=== PATIENT | male | born 1945 | race Caucasian/White ===

== ENCOUNTER 2018-04-13 17:10 | Inpatient (IN) | payer MEDICARE, OTHER ==
[~2018-04-13] VITALS: Ht 152.4 cm; Wt 87.4 kg
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
--- NOTE | 2018-04-13 18:07 | EKG ---
[address] [address] Test Date: 2018-04-13 Test Time: 17:59:26 Pat Name: KIM ROCHE Department: Room: Gender: M Termite Helper: AUDRA : 1945 Requested By: RALF RO Order Number: [id number] Reading MD: Albert Santiago Measurements Intervals [place] Rate: 79 P: VA: QRS: -55 QRSD: 142 T: 109 QT: 436 QTc: 507 Interpretive Statements VENTRICULAR PACED RHYTHM Electronically Signed On 04-17-2018 8:57:48 BOAT REPAIRER by Albert Santiago
[2018-04-13 18:10] LABS: BASO % 1 % (0-3); EOS # 0.2 x10^3/uL (0.0-0.7); EOS % 3 % (0-3); HEMATOCRIT 43.1 % (39.0-53.0); HEMOGLOBIN 14.2 g/dL (13.0-17.5); LYMPH # 1.6 x10^3/uL (1.0-4.8); LYMPH % 24 % (24-48); MEAN CORPUSCULAR HEMOGLOBIN 33 pg (25-35); MEAN CORPUSCULAR HGB CONC 33 g/dL (31-37); MEAN CORPUSCULAR VOLUME 100 fL (79-100); MONO # 0.6 x10^3/uL (0.0-1.1); MONO % 9 % (0-9); NEUT # 4.2 x10^3uL (1.8-7.7); NEUT % 63 % (31-73); PLATELET COUNT 142 x10^3/uL (140-400); RED BLOOD COUNT 4.31 x10^6/uL (4.30-5.70); RED CELL DISTRIBUTION WIDTH 13.3 % (11.5-14.5); WHITE BLOOD COUNT 6.7 x10^3/uL (4.0-11.0)
[2018-04-13 18:21] LABS: ALBUMIN 3.5 g/dL (3.4-5.0); CALCIUM 8.7 mg/dL (8.5-10.1); CREATININE 0.9 mg/dL (0.7-1.3); GFR 82.7; MAGNESIUM 2.1 mg/dL (1.8-2.4); POTASSIUM 3.5 mmol/L (3.5-5.1); TOTAL BILIRUBIN 0.4 mg/dL (0.2-1.0)
[2018-04-13] MEDS ORDERED: ACETAMINOPHEN 325 MG TABLET PO PRN ×2 (19:00→21:15)
[2018-04-13 19:04] LABS: BACTERIA,URINE 0 /HPF (0-FEW); BILIRUBIN,URINE NEG (NEG); CLARITY,URINE CLEAR; COLOR,URINE YELLOW; GLUCOSE,URINE NEG (NEG); NITRITE,URINE NEG (NEG); RBC,URINE RARE /HPF (0-2); SQUAMOUS EPITHELIAL CELL,UR OCC /LPF; UROBILINOGEN,URINE 1 mg/dL (0.2 mg/dL)
[2018-04-13] MEDS ORDERED: METHYL SALICYLATE/MENTHOL TOPICAL OINTMENT 29GM TUBE. TP PRN (21:15)
[2018-04-13] MEDS ORDERED: MAG HYDROX/AL HYDROX/SIMETH 30 ML ORAL.SUSP PO PRN (21:15)
[2018-04-13 21:40] VITALS: BP 147/86
--- NOTE | 2018-04-13 21:59 | PDOC ---
Exam Note: Gavin Note: Please also refer to the separate dictated note~for this date of service dictated separately.~Patient seen individually. Discussed the patient with Nursing staff reviewed the chart.~Reviewed interim history and current functioning. Reviewed vital signs,~Labs/ Radiology~and current medications noted below. Continue current treatment with the changes noted in the dictated addendum note Assessment: Vital Signs: Vital Signs Date Time Temp Pulse Resp B/P (MAP) Pulse Ox O2 Delivery O2 Flow Rate FiO2 04/13/18 21:40 77 16 147/86 (106) 97 04/13/18 17:45 98.7 Room Air Labs: Laboratory Tests Test 04/13/18 17:45 04/13/18 18:25 White Blood Count 6.7 x10^3/uL (4.0-11.0) Red Blood Count 4.31 x10^6/uL (4.30-5.70) Hemoglobin 14.2 g/dL (13.0-17.5) Hematocrit 43.1 % (39.0-53.0) Mean Corpuscular Volume 100 fL (79-100) Mean Corpuscular Hemoglobin 33 pg (25-35) Mean Corpuscular Hemoglobin Concent 33 g/dL (31-37) Red Cell Distribution Width 13.3 % (11.5-14.5) Platelet Count 142 x10^3/uL (140-400) Neutrophils (%) (Auto) 63 % (31-73) Lymphocytes (%) (Auto) 24 % (24-48) Monocytes (%) (Auto) 9 % (0-9) Eosinophils (%) (Auto) 3 % (0-3) Basophils (%) (Auto) 1 % (0-3) Neutrophils # (Auto) 4.2 x10^3uL (1.8-7.7) Lymphocytes # (Auto) 1.6 x10^3/uL (1.0-4.8) Monocytes # (Auto) 0.6 x10^3/uL (0.0-1.1) Eosinophils # (Auto) 0.2 x10^3/uL (0.0-0.7) Basophils # (Auto) 0.0 x10^3/uL (0.0-0.2) Sodium Level 145 mmol/L (136-145) Potassium Level 3.5 mmol/L (3.5-5.1) Chloride Level 107 mmol/L (98-107) Carbon Dioxide Level 30 mmol/L (21-32) Anion Gap 8 (6-14) Blood Urea Nitrogen 15 mg/dL (8-26) Creatinine 0.9 mg/dL (0.7-1.3) Estimated GFR (Cockcroft-Gault) 82.7 BUN/Creatinine Ratio 17 (6-20) Glucose Level 101 mg/dL (70-99) H Calcium Level 8.7 mg/dL (8.5-10.1) Magnesium Level 2.1 mg/dL (1.8-2.4) Total Bilirubin 0.4 mg/dL (0.2-1.0) Aspartate Amino Transferase (AST) 16 U/L (15-37) Alanine Aminotransferase (ALT) 9 U/L (16-63) L Alkaline Phosphatase 70 U/L (46-116) Total Protein 7.0 g/dL (6.4-8.2) Albumin 3.5 g/dL (3.4-5.0) Albumin/Globulin Ratio 1.0 (1.0-1.7) Urine Collection Type Unknown Urine Color Yellow Urine Clarity Clear Urine pH 7.0 Urine Specific [place] 1.015 Urine Protein Neg (NEG-TRACE) Urine Glucose (UA) Neg mg/dL (NEG) Urine Ketones (Stick) Trace mg/dL (NEG) Urine Blood Trace (NEG) Urine Nitrite Neg (NEG) Urine Bilirubin Neg (NEG) Urine Urobilinogen Dipstick 1 mg/dL (0.2 mg/dL) Urine Leukocyte Esterase Neg (NEG) Urine RBC Rare /HPF (0-2) Urine WBC 1-4 /HPF (0-4) Urine Squamous Epithelial Cells Occ /LPF Urine Bacteria 0 /HPF (0-FEW) Urine Mucus Slight /LPF Current Medications: Meds: Current Medications Acetaminophen (Tylenol) 650 mg PRN Q4HRS PRN PO FEVER; Start 04/13/18 at 19:00 ; Stop 04/14/18 at 18:59; Status Cancel Acetaminophen (Tylenol) 650 mg PRN Q6HRS PRN PO PAIN / TEMP; Start 04/13/18 at 21:15 Multi-Ingredient Ointment (Analgesic [place]) 1 nicole PRN QID PRN TP MUSCLE PAIN; Start 04/13/18 at 21:15 Al Hydroxide/Mg Hydroxide (Mylanta Plus Xs) 15 ml PRN AFTMEALHC PRN PO DYSPEPSIA; Start 04/13/18 at 21:15 Magnesium Hydroxide (Milk Of Magnesia) 2,400 mg PRN QHS PRN PO CONSTIPATION; Start 04/13/18 at 21:15 I have reviewed the current psychotropics carefully including drug interactions. Risk benefit ratio favors no change other than as noted in my dictated progress note. BYRON ACEVES MD Apr 13, 2018 21:59
[2018-04-13] MEDS ORDERED: ACET325T9 PO (22:17)
[2018-04-13] MEDS ORDERED: TAMS0.4C97 PO (22:17)
[2018-04-13] MEDS ORDERED: DULO30CA2 PO (22:17)
[2018-04-13] MEDS ORDERED: BISA10SU2 RC (22:17)
[2018-04-13] MEDS ORDERED: DIVA250T PO (22:17)
[2018-04-13] MEDS ORDERED: QUET25TA5 PO ×3 (22:17)
[2018-04-13] MEDS ORDERED: DEXT15LI7 PO (22:17)
[2018-04-13] MEDS ORDERED: SIMV20TA3 PO (22:17)
[2018-04-13] MEDS ORDERED: CARV25TA PO (22:17)
[2018-04-13] MEDS ORDERED: POLY17PO5 PO (22:17)
[2018-04-13] MEDS ORDERED: guaiFENesin DM 200MG/20MG 10 ML SYRUP PO PRN (22:30)
[2018-04-13] MEDS: QUEtiapine 25 MG TABLET. PO SCH (22:30)
[2018-04-14 05:57] VITALS: BP 145/73
[2018-04-14] MEDS: DULoxetine HCL 30 MG CAPSULE.DR PO SCH ×2 (08:07→19:41)
[2018-04-14] MEDS: CARVEDILOL 12.5 MG TABLET PO SCH ×2 (08:07→17:25)
[2018-04-14] MEDS: QUEtiapine 25 MG TABLET. PO SCH ×3 (08:08→19:41)
[2018-04-14] MEDS: ACETAMINOPHEN 325 MG TABLET PO SCH ×3 (08:10→19:41)
[2018-04-14] MEDS: DIVALPROEX ER 250 MG TAB.ER.24H. PO SCH ×2 (08:10→19:41)
[2018-04-14] MEDS ORDERED: POLYETHYLENE GLYCOL 3350 17 GM PACKET. PO PRN (09:00)
[2018-04-14 11:07] LABS: THYROXINE 6.2 ug/dL (4.5-12.0)
[2018-04-14 16:17] VITALS: BP 115/81
[2018-04-14] MEDS: SIMVASTATIN 20 MG TABLET PO SCH (19:40)
[2018-04-14] MEDS: TAMSULOSIN 0.4 MG CAP.ER.24H. PO SCH (19:41)
--- NOTE | 2018-04-14 22:40 | PDOC ---
Exam Note: Gavin Note: Please also refer to the separate dictated note~for this date of service dictated separately.~Patient seen individually. Discussed the patient with Nursing staff reviewed the chart.~Reviewed interim history and current functioning. Reviewed vital signs,~Labs/ Radiology~and current medications noted below. Continue current treatment with the changes noted in the dictated addendum note Assessment: Vital Signs: Vital Signs Date Time Temp Pulse Resp B/P (MAP) Pulse Ox O2 Delivery O2 Flow Rate FiO2 04/14/18 17:25 73 115/81 04/14/18 16:17 97.2 18 97 04/13/18 17:45 Room Air I&O Intake and Output 04/14/18 07:00 # Voids 1 Current Medications: Meds: Current Medications Acetaminophen (Tylenol) 650 mg PRN Q4HRS PRN PO FEVER; Start 04/13/18 at 19:00 ; Stop 04/14/18 at 18:59; Status Cancel Acetaminophen (Tylenol) 650 mg PRN Q6HRS PRN PO PAIN / TEMP; Start 04/13/18 at 21:15 Multi-Ingredient Ointment (Analgesic [place]) 1 nicole PRN QID PRN TP MUSCLE PAIN; Start 04/13/18 at 21:15 Al Hydroxide/Mg Hydroxide (Mylanta Plus Xs) 15 ml PRN AFTMEALHC PRN PO DYSPEPSIA; Start 04/13/18 at 21:15 Magnesium Hydroxide (Milk Of Magnesia) 2,400 mg PRN QHS PRN PO CONSTIPATION; Start 04/13/18 at 21:15 Olanzapine (ZyPREXA ZYDIS) 2.5 mg PRN Q2HR PRN PO PSYCHOSIS Last administered on 04/13/18at 22:00; Start 04/13/18 at 22:15 Acetaminophen (Tylenol) 650 mg TID PO Last administered on 04/14/18at 19:41; Start 04/14/18 at 09:00 Tamsulosin HCl (Flomax) 0.4 mg QHS PO Last administered on 04/14/18at 19:41; Start 04/14/18 at 21:00 Bisacodyl (Dulcolax Supp) 10 mg PRN DAILY PRN [place] CONSTIPATION; Start 04/13/18 at 22:30 Carvedilol (Coreg) 12.5 mg BIDWMEALS PO Last administered on 04/14/18at 17:25; Start 04/14/18 at 08:00 Guaifenesin (Robitussin Dm) 10 ml PRN Q4HRS PRN PO COUGH; Start 04/13/18 at 22: 30 Divalproex Sodium (Depakote Er) 250 mg BID PO Last administered on 04/14/18at 19 :41; Start 04/14/18 at 09:00 Duloxetine HCl (Cymbalta) 30 mg BID PO Last administered on 04/14/18at 19:41; Start 04/14/18 at 09:00 Polyethylene Glycol (miraLAX) 17 gm PRN DAILY PRN PO CONSTIPATION; Start at 09:00 Quetiapine Fumarate (SEROquel) 12.5 mg DAILY PO Last administered on 04/14/18at 08:08; Start 04/14/18 at 09:00 Quetiapine Fumarate (SEROquel) 12.5 mg Q24H PO Last administered on 04/14/18at 13:43; Start 04/14/18 at 13:00 Quetiapine Fumarate (SEROquel) 25 mg QHS PO Last administered on 04/14/18at 19: 41; Start 04/13/18 at 22:30 Simvastatin (Zocor) 20 mg HS PO Last administered on 04/14/18at 19:40; Start at 21:00 Active Scripts Active Reported Tylenol (Acetaminophen) 325 Mg Tablet 650 Mg PO TID Tussin Cough (Dextromethorphan Hbr) 15 Mg/5 Ml Liquid 15 Mg PO PRN Q4HRS PRN Flomax (Tamsulosin Hcl) 0.4 Mg Cap.er.24h 0.4 Mg PO QHS Simvastatin 20 Mg Tablet 20 Mg PO HS Seroquel (Quetiapine Fumarate) 25 Mg Tablet 25 Mg PO QHS Seroquel (Quetiapine Fumarate) 25 Mg Tablet 12.5 Mg PO DAILY Seroquel (Quetiapine Fumarate) 25 Mg Tablet 12.5 Mg PO DAILY@1300 Miralax (Polyethylene Glycol 3350) 17 Gm Powd.pack 17 Gm PO PRN DAILY PRN Depakote Er (Divalproex Sodium) 250 Mg Tab.er.24h 250 Mg PO BID Cymbalta (Duloxetine Hcl) 30 Mg Capsule.dr 30 Mg PO BID Coreg (Carvedilol) 25 Mg Tablet 12.5 Mg PO DAILY Bisacodyl 10 Mg Supp.rect 10 Mg RC PRN DAILY PRN I have reviewed the current psychotropics carefully including drug interactions. Risk benefit ratio favors no change other than as noted in my dictated progress note. Diagnosis: Problems: (1) Anxiety disorder (2) Dementia in Alzheimer's disease with delusions (3) Dementia in Alzheimer's disease with depression (4) Dementia, vascular, with delusions (5) Dementia, vascular, with depression (6) Impulse control disorder BYRON ACEVES MD Apr 14, 2018 22:40
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
[2018-04-15 06:18] VITALS: BP 103/60
[2018-04-15] MEDS: DIVALPROEX ER 250 MG TAB.ER.24H. PO SCH ×2 (08:35→20:09)
[2018-04-15] MEDS: DULoxetine HCL 30 MG CAPSULE.DR PO SCH ×2 (08:35→20:09)
[2018-04-15] MEDS: CARVEDILOL 12.5 MG TABLET PO SCH ×2 (08:35→17:15)
[2018-04-15] MEDS: QUEtiapine 25 MG TABLET. PO SCH ×3 (08:40→20:10)
[2018-04-15] MEDS: ACETAMINOPHEN 325 MG TABLET PO SCH ×3 (08:41→20:10)
[2018-04-15 16:24] VITALS: BP 116/77
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
[2018-04-15] MEDS: TAMSULOSIN 0.4 MG CAP.ER.24H. PO SCH (20:09)
[2018-04-15] MEDS: MIRTAZAPINE 7.5 MG TABLET. PO SCH (20:09)
[2018-04-15] MEDS: SIMVASTATIN 20 MG TABLET PO SCH (20:10)
--- NOTE | 2018-04-15 22:27 | PDOC ---
Exam Note: Gavin Note: Please also refer to the separate dictated note~for this date of service dictated separately.~Patient seen individually. Discussed the patient with Nursing staff reviewed the chart.~Reviewed interim history and current functioning. Reviewed vital signs,~Labs/ Radiology~and current medications noted below. Continue current treatment with the changes noted in the dictated addendum note Assessment: Vital Signs: Vital Signs Date Time Temp Pulse Resp B/P (MAP) Pulse Ox O2 Delivery O2 Flow Rate FiO2 04/15/18 17:15 74 116/77 04/15/18 16:24 97.5 16 95 04/13/18 17:45 Room Air I&O Intake and Output 04/15/18 07:00 Intake Total 360 ml Balance 360 ml Intake Oral 360 ml # Bowel Movements 2 Current Medications: Meds: Current Medications Acetaminophen (Tylenol) 650 mg PRN Q4HRS PRN PO FEVER; Start 04/13/18 at 19:00 ; Stop 04/14/18 at 18:59; Status Cancel Acetaminophen (Tylenol) 650 mg PRN Q6HRS PRN PO PAIN / TEMP; Start 04/13/18 at 21:15 Multi-Ingredient Ointment (Analgesic [place]) 1 nicole PRN QID PRN TP MUSCLE PAIN; Start 04/13/18 at 21:15 Al Hydroxide/Mg Hydroxide (Mylanta Plus Xs) 15 ml PRN AFTMEALHC PRN PO DYSPEPSIA; Start 04/13/18 at 21:15 Magnesium Hydroxide (Milk Of Magnesia) 2,400 mg PRN QHS PRN PO CONSTIPATION; Start 04/13/18 at 21:15 Olanzapine (ZyPREXA ZYDIS) 2.5 mg PRN Q2HR PRN PO PSYCHOSIS Last administered on 04/13/18at 22:00; Start 04/13/18 at 22:15 Acetaminophen (Tylenol) 650 mg TID PO Last administered on 04/15/18at 20:10; Start 04/14/18 at 09:00 Tamsulosin HCl (Flomax) 0.4 mg QHS PO Last administered on 04/15/18at 20:09; Start 04/14/18 at 21:00 Bisacodyl (Dulcolax Supp) 10 mg PRN DAILY PRN [place] CONSTIPATION; Start 04/13/18 at 22:30 Carvedilol (Coreg) 12.5 mg BIDWMEALS PO Last administered on 04/15/18 17:15; Start 04/14/18 at 08:00 Guaifenesin (Robitussin Dm) 10 ml PRN Q4HRS PRN PO COUGH; Start 04/13/18 at 22: 30 Divalproex Sodium (Depakote Er) 250 mg BID PO Last administered on 04/15/18 20 :09; Start 04/14/18 at 09:00 Duloxetine HCl (Cymbalta) 30 mg BID PO Last administered on 04/15/18 20:09; Start 04/14/18 at 09:00 Polyethylene Glycol (miraLAX) 17 gm PRN DAILY PRN PO CONSTIPATION; Start at 09:00 Quetiapine Fumarate (SEROquel) 12.5 mg DAILY PO Last administered on 04/15/18 08:40; Start 04/14/18 at 09:00 Quetiapine Fumarate (SEROquel) 12.5 mg Q24H PO Last administered on 04/15/18 13:35; Start 04/14/18 at 13:00 Quetiapine Fumarate (SEROquel) 25 mg QHS PO Last administered on 04/15/18 20: 10; Start 04/13/18 at 22:30 Simvastatin (Zocor) 20 mg HS PO Last administered on 04/15/18 20:10; Start at 21:00 Mirtazapine (Remeron) 7.5 mg QHS PO Last administered on 04/15/18 20:09; Start 04/15/18 at 21:00 Active Scripts Active Reported Tylenol (Acetaminophen) 325 Mg Tablet 650 Mg PO TID Tussin Cough (Dextromethorphan Hbr) 15 Mg/5 Ml Liquid 15 Mg PO PRN Q4HRS PRN Flomax (Tamsulosin Hcl) 0.4 Mg Cap.er.24h 0.4 Mg PO QHS Simvastatin 20 Mg Tablet 20 Mg PO HS Seroquel (Quetiapine Fumarate) 25 Mg Tablet 25 Mg PO QHS Seroquel (Quetiapine Fumarate) 25 Mg Tablet 12.5 Mg PO DAILY Seroquel (Quetiapine Fumarate) 25 Mg Tablet 12.5 Mg PO DAILY@1300 Miralax (Polyethylene Glycol 3350) 17 Gm Powd.pack 17 Gm PO PRN DAILY PRN Depakote Er (Divalproex Sodium) 250 Mg Tab.er.24h 250 Mg PO BID Cymbalta (Duloxetine Hcl) 30 Mg Capsule.dr 30 Mg PO BID Coreg (Carvedilol) 25 Mg Tablet 12.5 Mg PO DAILY Bisacodyl 10 Mg Supp.rect 10 Mg RC PRN DAILY PRN I have reviewed the current psychotropics carefully including drug interactions. Risk benefit ratio favors no change other than as noted in my dictated progress note. Diagnosis: Problems: (1) Anxiety disorder (2) Dementia in Alzheimer's disease with delusions (3) Dementia in Alzheimer's disease with depression (4) Dementia, vascular, with delusions (5) Dementia, vascular, with depression (6) Impulse control disorder BYRON ACEVES MD Apr 15, 2018 22:27
[2018-04-16 06:03] VITALS: BP 139/88
[2018-04-16] MEDS: DULoxetine HCL 30 MG CAPSULE.DR PO SCH ×2 (07:39→20:10)
[2018-04-16] MEDS: QUEtiapine 25 MG TABLET. PO SCH ×3 (07:39→20:09)
[2018-04-16] MEDS: DIVALPROEX ER 250 MG TAB.ER.24H. PO SCH ×2 (07:39→20:09)
[2018-04-16] MEDS: ACETAMINOPHEN 325 MG TABLET PO SCH ×3 (07:39→20:09)
[2018-04-16] MEDS: CARVEDILOL 12.5 MG TABLET PO SCH ×2 (07:41→18:11)
[2018-04-16 16:31] VITALS: BP 127/82
[2018-04-16] MEDS: TAMSULOSIN 0.4 MG CAP.ER.24H. PO SCH (20:08)
[2018-04-16] MEDS: MIRTAZAPINE 7.5 MG TABLET. PO SCH (20:09)
[2018-04-16] MEDS: SIMVASTATIN 20 MG TABLET PO SCH (20:09)
--- NOTE | 2018-04-16 22:43 | PDOC ---
Exam Note: Gavin Note: Please also refer to the separate dictated note~for this date of service dictated separately.~Patient seen individually. Discussed the patient with Nursing staff reviewed the chart.~Reviewed interim history and current functioning. Reviewed vital signs,~Labs/ Radiology~and current medications noted below. Continue current treatment with the changes noted in the dictated addendum note Assessment: Vital Signs: Vital Signs Date Time Temp Pulse Resp B/P (MAP) Pulse Ox O2 Delivery O2 Flow Rate FiO2 04/16/18 18:11 75 127/82 04/16/18 16:31 97.2 20 93 Room Air I&O Intake and Output 04/16/18 07:00 Intake Total 600 ml Balance 600 ml Intake Oral 600 ml Current Medications: Meds: Current Medications Acetaminophen (Tylenol) 650 mg PRN Q4HRS PRN PO FEVER; Start 04/13/18 at 19:00 ; Stop 04/14/18 at 18:59; Status Cancel Acetaminophen (Tylenol) 650 mg PRN Q6HRS PRN PO PAIN / TEMP; Start 04/13/18 at 21:15 Multi-Ingredient Ointment (Analgesic [place]) 1 nicole PRN QID PRN TP MUSCLE PAIN; Start 04/13/18 at 21:15 Al Hydroxide/Mg Hydroxide (Mylanta Plus Xs) 15 ml PRN AFTMEALHC PRN PO DYSPEPSIA; Start 04/13/18 at 21:15 Magnesium Hydroxide (Milk Of Magnesia) 2,400 mg PRN QHS PRN PO CONSTIPATION; Start 04/13/18 at 21:15 Olanzapine (ZyPREXA ZYDIS) 2.5 mg PRN Q2HR PRN PO PSYCHOSIS Last administered on 04/13/18at 22:00; Start 04/13/18 at 22:15 Acetaminophen (Tylenol) 650 mg TID PO Last administered on 04/16/18at 20:09; Start 04/14/18 at 09:00 Tamsulosin HCl (Flomax) 0.4 mg QHS PO Last administered on 04/16/18at 20:08; Start 04/14/18 at 21:00 Bisacodyl (Dulcolax Supp) 10 mg PRN DAILY PRN [place] CONSTIPATION; Start 04/13/18 at 22:30 Carvedilol (Coreg) 12.5 mg BIDWMEALS PO Last administered on 04/16/18 18:11; Start 04/14/18 at 08:00 Guaifenesin (Robitussin Dm) 10 ml PRN Q4HRS PRN PO COUGH; Start 04/13/18 at 22: 30 Divalproex Sodium (Depakote Er) 250 mg BID PO Last administered on 04/16/18 20 :09; Start 04/14/18 at 09:00 Duloxetine HCl (Cymbalta) 30 mg BID PO Last administered on 04/16/18 20:10; Start 04/14/18 at 09:00 Polyethylene Glycol (miraLAX) 17 gm PRN DAILY PRN PO CONSTIPATION; Start at 09:00 Quetiapine Fumarate (SEROquel) 12.5 mg DAILY PO Last administered on 04/16/18 07:39; Start 04/14/18 at 09:00 Quetiapine Fumarate (SEROquel) 12.5 mg Q24H PO Last administered on 04/16/18 12:47; Start 04/14/18 at 13:00 Quetiapine Fumarate (SEROquel) 25 mg QHS PO Last administered on 04/16/18 20: 09; Start 04/13/18 at 22:30 Simvastatin (Zocor) 20 mg HS PO Last administered on 04/16/18 20:09; Start at 21:00 Mirtazapine (Remeron) 7.5 mg QHS PO Last administered on 04/16/18 20:09; Start 04/15/18 at 21:00 Active Scripts Active Reported Tylenol (Acetaminophen) 325 Mg Tablet 650 Mg PO TID Tussin Cough (Dextromethorphan Hbr) 15 Mg/5 Ml Liquid 15 Mg PO PRN Q4HRS PRN Flomax (Tamsulosin Hcl) 0.4 Mg Cap.er.24h 0.4 Mg PO QHS Simvastatin 20 Mg Tablet 20 Mg PO HS Seroquel (Quetiapine Fumarate) 25 Mg Tablet 25 Mg PO QHS Seroquel (Quetiapine Fumarate) 25 Mg Tablet 12.5 Mg PO DAILY Seroquel (Quetiapine Fumarate) 25 Mg Tablet 12.5 Mg PO DAILY@1300 Miralax (Polyethylene Glycol 3350) 17 Gm Powd.pack 17 Gm PO PRN DAILY PRN Depakote Er (Divalproex Sodium) 250 Mg Tab.er.24h 250 Mg PO BID Cymbalta (Duloxetine Hcl) 30 Mg Capsule.dr 30 Mg PO BID Coreg (Carvedilol) 25 Mg Tablet 12.5 Mg PO DAILY Bisacodyl 10 Mg Supp.rect 10 Mg RC PRN DAILY PRN I have reviewed the current psychotropics carefully including drug interactions. Risk benefit ratio favors no change other than as noted in my dictated progress note. Diagnosis: Problems: (1) Anxiety disorder (2) Dementia in Alzheimer's disease with delusions (3) Dementia in Alzheimer's disease with depression (4) Dementia, vascular, with delusions (5) Dementia, vascular, with depression (6) Impulse control disorder BYRON ACEVES MD Apr 16, 2018 22:43
--- NOTE | 2018-04-16 23:13 | PN ---
DATE: 04/15/2018 PSYCHIATRIC PROGRESS NOTE This late entry 04/15/2018 covers elements not covered in my initial note. SUBJECTIVE: I met with the patient in the evening. The patient slept 5 hours previous night. He remains confused, withdrawn, not aggressive. In the evening, he fell and hit his head. CT head is unremarkable. Slept 5 hours previous night, restless at times all night. REVIEW OF SYSTEMS: Ambulation impaired, in wheelchair. No CV, , pulmonary, eye, ENT system symptoms on review. Reliability poor. He is not very verbal. MENTAL STATUS EXAM: Oriented to himself. Insight, judgment, recent and remote memory, attention, concentration, fund of knowledge poor, consistent with his diagnosis. IMPRESSION: Major neurocognitive disorder, Alzheimer, vascular with delusion, depression, behavioral disturbance; anxiety disorder, unspecified; impulse control disorder, unspecified. Rest unchanged. PLAN: Start Remeron 7.5 mg p.o. at bedtime for insomnia. Rest unchanged from initial note. MAN Roxana ACEVES MD DR: DANN/brittni JOB#: [id number] / [id number]
[2018-04-17 05:50] VITALS: BP 115/78
[2018-04-17] MEDS: DULoxetine HCL 30 MG CAPSULE.DR PO SCH ×2 (08:04→19:47)
[2018-04-17] MEDS: CARVEDILOL 12.5 MG TABLET PO SCH ×2 (08:04→16:12)
[2018-04-17] MEDS: DIVALPROEX ER 250 MG TAB.ER.24H. PO SCH ×2 (08:05→19:46)
[2018-04-17] MEDS: ACETAMINOPHEN 325 MG TABLET PO SCH ×3 (08:05→19:47)
[2018-04-17] MEDS: QUEtiapine 25 MG TABLET. PO SCH ×3 (08:06→19:47)
[2018-04-17 15:22] VITALS: BP 131/71
[2018-04-17 19:07] LABS: VAL ACID 45 mcg/mL (50-100)
[2018-04-17] MEDS: TAMSULOSIN 0.4 MG CAP.ER.24H. PO SCH (19:47)
[2018-04-17] MEDS: MIRTAZAPINE 7.5 MG TABLET. PO SCH (19:47)
[2018-04-17] MEDS: SIMVASTATIN 20 MG TABLET PO SCH (19:47)
--- NOTE | 2018-04-17 22:20 | PDOC ---
Exam Note: Gavin Note: Please also refer to the separate dictated note~for this date of service dictated separately.~Patient seen individually. Discussed the patient with Nursing staff reviewed the chart.~Reviewed interim history and current functioning. Reviewed vital signs,~Labs/ Radiology~and current medications noted below. Continue current treatment with the changes noted in the dictated addendum note Assessment: Vital Signs: Vital Signs Date Time Temp Pulse Resp B/P (MAP) Pulse Ox O2 Delivery O2 Flow Rate FiO2 04/17/18 16:12 63 131/71 04/17/18 15:22 97.6 18 94 04/16/18 16:31 Room Air I&O Intake and Output 04/17/18 07:00 Intake Total 840 ml Balance 840 ml Intake Oral 840 ml Labs: Laboratory Tests Test 04/17/18 18:45 Valproic Acid Level 45 mcg/mL (50-100) L Valproic Acid Last Dose Date 04/17/18 Valproic Acid Last Dose Time 0900 Current Medications: Meds: Current Medications Acetaminophen (Tylenol) 650 mg PRN Q4HRS PRN PO FEVER; Start 04/13/18 at 19:00 ; Stop 04/14/18 at 18:59; Status Cancel Acetaminophen (Tylenol) 650 mg PRN Q6HRS PRN PO PAIN / TEMP; Start 04/13/18 at 21:15 Multi-Ingredient Ointment (Analgesic [place]) 1 nicole PRN QID PRN TP MUSCLE PAIN; Start 04/13/18 at 21:15 Al Hydroxide/Mg Hydroxide (Mylanta Plus Xs) 15 ml PRN AFTMEALHC PRN PO DYSPEPSIA; Start 04/13/18 at 21:15 Magnesium Hydroxide (Milk Of Magnesia) 2,400 mg PRN QHS PRN PO CONSTIPATION; Start 04/13/18 at 21:15 Olanzapine (ZyPREXA ZYDIS) 2.5 mg PRN Q2HR PRN PO PSYCHOSIS Last administered on 04/13/18at 22:00; Start 04/13/18 at 22:15 Acetaminophen (Tylenol) 650 mg TID PO Last administered on 04/17/18at 19:47; Start 04/14/18 at 09:00 Tamsulosin HCl (Flomax) 0.4 mg QHS PO Last administered on 04/17/18at 19:47; Start 04/14/18 at 21:00 Bisacodyl (Dulcolax Supp) 10 mg PRN DAILY PRN [place] CONSTIPATION; Start 04/13/18 at 22:30 Carvedilol (Coreg) 12.5 mg BIDWMEALS PO Last administered on 04/17/18at 16:12; Start 04/14/18 at 08:00 Guaifenesin (Robitussin Dm) 10 ml PRN Q4HRS PRN PO COUGH; Start 04/13/18 at 22: 30 Divalproex Sodium (Depakote Er) 250 mg BID PO Last administered on 04/17/18 19 :46; Start 04/14/18 at 09:00 Duloxetine HCl (Cymbalta) 30 mg BID PO Last administered on 04/17/18 19:47; Start 04/14/18 at 09:00 Polyethylene Glycol (miraLAX) 17 gm PRN DAILY PRN PO CONSTIPATION; Start at 09:00 Quetiapine Fumarate (SEROquel) 12.5 mg DAILY PO Last administered on 04/17/18at 08:06; Start 04/14/18 at 09:00 Quetiapine Fumarate (SEROquel) 12.5 mg Q24H PO Last administered on 04/17/18at 13:28; Start 04/14/18 at 13:00 Quetiapine Fumarate (SEROquel) 25 mg QHS PO Last administered on 04/17/18at 19: 47; Start 04/13/18 at 22:30 Simvastatin (Zocor) 20 mg HS PO Last administered on 04/17/18at 19:47; Start at 21:00 Mirtazapine (Remeron) 7.5 mg QHS PO Last administered on 04/17/18 19:47; Start 04/15/18 at 21:00 Aspirin (Children'S Aspirin) 162 mg DAILYWBKFT PO ; Start 04/18/18 at 08:00 Active Scripts Active Reported Tylenol (Acetaminophen) 325 Mg Tablet 650 Mg PO TID Tussin Cough (Dextromethorphan Hbr) 15 Mg/5 Ml Liquid 15 Mg PO PRN Q4HRS PRN Flomax (Tamsulosin Hcl) 0.4 Mg Cap.er.24h 0.4 Mg PO QHS Simvastatin 20 Mg Tablet 20 Mg PO HS Seroquel (Quetiapine Fumarate) 25 Mg Tablet 25 Mg PO QHS Seroquel (Quetiapine Fumarate) 25 Mg Tablet 12.5 Mg PO DAILY Seroquel (Quetiapine Fumarate) 25 Mg Tablet 12.5 Mg PO DAILY@1300 Miralax (Polyethylene Glycol 3350) 17 Gm Powd.pack 17 Gm PO PRN DAILY PRN Depakote Er (Divalproex Sodium) 250 Mg Tab.er.24h 250 Mg PO BID Cymbalta (Duloxetine Hcl) 30 Mg Capsule.dr 30 Mg PO BID Coreg (Carvedilol) 25 Mg Tablet 12.5 Mg PO DAILY Bisacodyl 10 Mg Supp.rect 10 Mg RC PRN DAILY PRN I have reviewed the current psychotropics carefully including drug interactions. Risk benefit ratio favors no change other than as noted in my dictated progress note. Diagnosis: Problems: (1) Anxiety disorder (2) Dementia in Alzheimer's disease with delusions (3) Dementia in Alzheimer's disease with depression (4) Dementia, vascular, with delusions (5) Dementia, vascular, with depression (6) Impulse control disorder BYRON ACEVES MD Apr 17, 2018 22:20
--- NOTE | 2018-04-17 22:24 | PN ---
DATE: 04/16/2018 PSYCHIATRIC PROGRESS NOTE This late entry 04/16/2018 covers elements not covered in my initial note. SUBJECTIVE: I met with the patient in the evening. The patient slept 5-1/2 hours previous night. He has been somewhat sedated, sleeping all day, had been in the quiet room on the ground. CT head is unremarkable. He had had a fall previous evening. CT head was done to rule out any intracranial bleed, this was negative. REVIEW OF SYSTEMS: Ambulation impaired, in wheelchair. No CV, , pulmonary, eye, ENT system symptoms on review. Reliability poor. MENTAL STATUS EXAM: Oriented to himself. Insight, judgment, recent and remote memory, attention, concentration, fund of knowledge poor, consistent with his diagnosis mentioned in my initial note. IMPRESSION: Major neurocognitive disorder, Alzheimer, vascular with delusion, depression, behavioral disturbance; anxiety disorder, unspecified; impulse control disorder, unspecified. PLAN: No change from initial note. We have added Remeron 7.5 mg at bedtime. He slept a little better previous night. MAN Roxana ACEVES MD DR: DANN/brittni JOB#: [id number] / [id number]
[2018-04-18 06:16] VITALS: BP 158/100
[2018-04-18] MEDS: DULoxetine HCL 30 MG CAPSULE.DR PO SCH ×2 (08:07→20:02)
[2018-04-18] MEDS: DIVALPROEX ER 250 MG TAB.ER.24H. PO SCH ×2 (08:08→20:02)
[2018-04-18] MEDS: CARVEDILOL 12.5 MG TABLET PO SCH ×2 (08:08→17:51)
[2018-04-18] MEDS: QUEtiapine 25 MG TABLET. PO SCH ×3 (08:08→20:02)
[2018-04-18] MEDS: ACETAMINOPHEN 325 MG TABLET PO SCH ×3 (08:08→20:01)
[2018-04-18] MEDS: ASPIRIN 81 MG TAB.CHEW PO SCH (08:13)
--- NOTE | 2018-04-18 09:44 | CONS ---
DATE OF CONSULTATION: 04/17/2018 NEUROLOGICAL CONSULTATION REFERRING PHYSICIAN: Justin Chapa MD REASON FOR CONSULTATION: History of stroke and abnormal head CT scan. HISTORY OF PRESENT ILLNESS: This is a 72-year-old right-handed male who was admitted on 04/13/2018 on account of aggressive behavior at [facility]. The patient has had history of dementia, but recently his behavior became very disturbed and aggressive against a female resident. Neuro consult was requested because of abnormal head CT scan. Currently, the patient is markedly confused and demented and not able to provide any information. PAST MEDICAL HISTORY: Significant for osteoarthritis, polyneuropathy, hypertension, benign prostatic hypertrophy, GERD and hyperlipidemia. PAST PSYCHIATRIC HISTORY: Consistent with dementia, behavior disturbance, anxiety, major depression, insomnia. PAST SURGICAL HISTORY: Positive for pacemaker placement. SOCIAL HISTORY: The patient is a resident of [facility]. There is no history about drinking or smoking. CURRENT MEDICATIONS: Includes simvastatin 20 mg at bedtime, carvedilol 12.5 mg daily, Tylenol 650 mg 3 times daily, Depakote 250 mg twice daily, duloxetine 30 mg p.o. b.i.d., quetiapine or Seroquel 12.5 mg daily and Seroquel 25 mg at bedtime. ALLERGIES: LIPITOR, HYDROCHLOROTHIAZIDE AND SERAFIN INHIBITOR. REVIEW OF SYSTEMS: A 10-point review of system was performed; however, the patient is not cooperative due to underlying severe dementia. PHYSICAL EXAMINATION: GENERAL: Well-developed, well-nourished man, not in acute distress. He weighs 199.5 pounds. VITAL SIGNS: Blood pressure 131/71, respiratory rate 18, pulse is 63, irregular, temperature 97.6, oxygen saturation 94% on room air. HEENT: Normocephalic, atraumatic, otherwise, unremarkable. NECK: Supple. Negative for carotid bruit, lymphadenopathy or thyromegaly. LUNGS: Clear to A and P. CARDIOVASCULAR: Regular rhythm, normal S1, S2. There is no S3, S4 or murmur. ABDOMEN: Soft. Bowel sounds positive. EXTREMITIES: Negative for cyanosis, clubbing or pitting edema. NEUROLOGICAL EXAM: Mental Status: The patient is awake, but disoriented to time, place and person. Speech is somewhat fluent, otherwise, difficult to evaluate because of underlying severe dementia. CRANIAL NERVES: Visual herrera appear to be intact. Pupils are reactive to light and accommodation. The extraocular movements are intact. There is no nystagmus. There is no facial motor or sensory deficit. Hearing appears to be intact. The palate is elevated symmetrically. Sternocleidomastoid muscles are powerful bilaterally. The patient shrugs his shoulders symmetrically, protrudes his tongue in the midline without fasciculation or atrophy. Motor: No focal muscle bulk was seen. The tone is normal. The strength is 4/5 throughout. Sensory examination revealed normal pinprick and light touch senses throughout. Deep tendon reflexes were asymmetric and hypoactive with absent Achilles responses. Gait not tested as the patient is confined to a wheelchair and has tendency to fall. DIAGNOSTIC DATA: Nonenhanced head CT scan performed on 04/15/2018 revealed no intracranial bleed, but it showed wedge-shaped area of low attenuation in the right parietal lobe, probably due to underlying old ischemic infarct. LABORATORY DATA: CBC revealed white blood cells of 6700, hemoglobin 14.2, hematocrit 43.1, platelet count 142,000. Chemistry revealed sodium of 145, potassium 3.5, chloride 107, CO2 of 30, BUN 15, creatinine 0.9, glucose 101, calcium 8.7. Liver enzymes are normal with low ALT. TSH is normal along with normal T4 and T3. Urinalysis negative for urinary tract infections. Valproic acid today is low at 45. IMPRESSION: 1. 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 2. Dementia, probably vascular. 3. Multiple medical problems include hypertension, hyperlipidemia and benign prostatic hypertrophy, depression, anxiety and behavior disturbances. 4. Status post pacemaker placement. 5. EKG consistent with regular rhythm and atrial fibrillation. RECOMMENDATIONS: 1. As the patient has unsteady stance and not able to walk, I will agree with aspirin 162 mg p.o. daily. Otherwise, continue with current medical and psychiatric care. 2. As the patient has chronic atrial fibrillation with unsteady gait and tendency to fall, it is recommended not to place him on anticoagulant; however, the patient will be placed on aspirin 162 mg p.o. daily. 3. Continue with current medical management initiated by Dr. Schmitt and current psychiatric care initiated by Dr. Chapa. M Risa PIERRE MD DR: PEDRO/brittni JOB#: [id number] / [id number]
[2018-04-18 16:06] VITALS: BP 104/62
[2018-04-18] MEDS: SIMVASTATIN 20 MG TABLET PO SCH (20:01)
[2018-04-18] MEDS: TAMSULOSIN 0.4 MG CAP.ER.24H. PO SCH (20:02)
[2018-04-18] MEDS: MIRTAZAPINE 7.5 MG TABLET. PO SCH (20:02)
--- NOTE | 2018-04-18 22:18 | PDOC ---
Exam Note: Gavin Note: Please also refer to the separate dictated note~for this date of service dictated separately.~Patient seen individually. Discussed the patient with Nursing staff reviewed the chart.~Reviewed interim history and current functioning. Reviewed vital signs,~Labs/ Radiology~and current medications noted below. Continue current treatment with the changes noted in the dictated addendum note Assessment: Vital Signs: Vital Signs Date Time Temp Pulse Resp B/P (MAP) Pulse Ox O2 Delivery O2 Flow Rate FiO2 04/18/18 17:51 75 104/62 04/18/18 16:06 97.9 20 96 04/16/18 16:31 Room Air I&O Intake and Output 04/18/18 07:00 Intake Total 1080 ml Balance 1080 ml Intake Oral 1080 ml Current Medications: Meds: Current Medications Acetaminophen (Tylenol) 650 mg PRN Q4HRS PRN PO FEVER; Start 04/13/18 at 19:00 ; Stop 04/14/18 at 18:59; Status Cancel Acetaminophen (Tylenol) 650 mg PRN Q6HRS PRN PO PAIN / TEMP; Start 04/13/18 at 21:15 Multi-Ingredient Ointment (Analgesic [place]) 1 nicole PRN QID PRN TP MUSCLE PAIN; Start 04/13/18 at 21:15 Al Hydroxide/Mg Hydroxide (Mylanta Plus Xs) 15 ml PRN AFTMEALHC PRN PO DYSPEPSIA; Start 04/13/18 at 21:15 Magnesium Hydroxide (Milk Of Magnesia) 2,400 mg PRN QHS PRN PO CONSTIPATION; Start 04/13/18 at 21:15 Olanzapine (ZyPREXA ZYDIS) 2.5 mg PRN Q2HR PRN PO PSYCHOSIS Last administered on 04/13/18at 22:00; Start 04/13/18 at 22:15 Acetaminophen (Tylenol) 650 mg TID PO Last administered on 04/18/18at 20:01; Start 04/14/18 at 09:00 Tamsulosin HCl (Flomax) 0.4 mg QHS PO Last administered on 04/18/18at 20:02; Start 04/14/18 at 21:00 Bisacodyl (Dulcolax Supp) 10 mg PRN DAILY PRN [place] CONSTIPATION; Start 04/13/18 at 22:30 Carvedilol (Coreg) 12.5 mg BIDWMEALS PO Last administered on 04/18/18 17:51; Start 04/14/18 at 08:00 Guaifenesin (Robitussin Dm) 10 ml PRN Q4HRS PRN PO COUGH; Start 04/13/18 at 22: 30 Divalproex Sodium (Depakote Er) 250 mg BID PO Last administered on 04/18/18 20 :02; Start 04/14/18 at 09:00 Duloxetine HCl (Cymbalta) 30 mg BID PO Last administered on 04/18/18 20:02; Start 04/14/18 at 09:00 Polyethylene Glycol (miraLAX) 17 gm PRN DAILY PRN PO CONSTIPATION; Start at 09:00 Quetiapine Fumarate (SEROquel) 12.5 mg DAILY PO Last administered on 04/18/18 08:08; Start 04/14/18 at 09:00 Quetiapine Fumarate (SEROquel) 12.5 mg Q24H PO Last administered on 04/18/18 12:21; Start 04/14/18 at 13:00 Quetiapine Fumarate (SEROquel) 25 mg QHS PO Last administered on 04/18/18 20: 02; Start 04/13/18 at 22:30 Simvastatin (Zocor) 20 mg HS PO Last administered on 04/18/18 20:01; Start at 21:00 Mirtazapine (Remeron) 7.5 mg QHS PO Last administered on 04/18/18 20:02; Start 04/15/18 at 21:00 Aspirin (Children'S Aspirin) 162 mg DAILYWBKFT PO Last administered on 08:13; Start 04/18/18 at 08:00 Active Scripts Active Reported Tylenol (Acetaminophen) 325 Mg Tablet 650 Mg PO TID Tussin Cough (Dextromethorphan Hbr) 15 Mg/5 Ml Liquid 15 Mg PO PRN Q4HRS PRN Flomax (Tamsulosin Hcl) 0.4 Mg Cap.er.24h 0.4 Mg PO QHS Simvastatin 20 Mg Tablet 20 Mg PO HS Seroquel (Quetiapine Fumarate) 25 Mg Tablet 25 Mg PO QHS Seroquel (Quetiapine Fumarate) 25 Mg Tablet 12.5 Mg PO DAILY Seroquel (Quetiapine Fumarate) 25 Mg Tablet 12.5 Mg PO DAILY@1300 Miralax (Polyethylene Glycol 3350) 17 Gm Powd.pack 17 Gm PO PRN DAILY PRN Depakote Er (Divalproex Sodium) 250 Mg Tab.er.24h 250 Mg PO BID Cymbalta (Duloxetine Hcl) 30 Mg Capsule.dr 30 Mg PO BID Coreg (Carvedilol) 25 Mg Tablet 12.5 Mg PO DAILY Bisacodyl 10 Mg Supp.rect 10 Mg RC PRN DAILY PRN I have reviewed the current psychotropics carefully including drug interactions. Risk benefit ratio favors no change other than as noted in my dictated progress note. Diagnosis: Problems: (1) Anxiety disorder (2) Dementia in Alzheimer's disease with delusions (3) Dementia in Alzheimer's disease with depression (4) Dementia, vascular, with delusions (5) Dementia, vascular, with depression (6) Impulse control disorder BYRON ACEVES MD Apr 18, 2018 22:18
[2018-04-19 06:28] VITALS: BP 116/64
[2018-04-19] MEDS: ASPIRIN 81 MG TAB.CHEW PO SCH (08:29)
[2018-04-19] MEDS: DULoxetine HCL 30 MG CAPSULE.DR PO SCH ×2 (08:30→19:20)
[2018-04-19] MEDS: CARVEDILOL 12.5 MG TABLET PO SCH ×2 (08:30→17:00)
[2018-04-19] MEDS: DIVALPROEX ER 250 MG TAB.ER.24H. PO SCH (08:30)
[2018-04-19] MEDS: ACETAMINOPHEN 325 MG TABLET PO SCH ×3 (08:31→19:21)
[2018-04-19] MEDS: QUEtiapine 25 MG TABLET. PO SCH ×3 (08:31→19:20)
[2018-04-19 09:28] LABS: BASO % 1 % (0-3); EOS # 0.3 x10^3/uL (0.0-0.7); EOS % 5 % (0-3); HEMATOCRIT 43.7 % (39.0-53.0); LYMPH # 1.8 x10^3/uL (1.0-4.8); LYMPH % 35 % (24-48); MEAN CORPUSCULAR HEMOGLOBIN 33 pg (25-35); MEAN CORPUSCULAR HGB CONC 34 g/dL (31-37); MEAN CORPUSCULAR VOLUME 97 fL (79-100); MONO # 0.4 x10^3/uL (0.0-1.1); MONO % 8 % (0-9); NEUT # 2.6 x10^3uL (1.8-7.7); NEUT % 50 % (31-73); PLATELET COUNT 149 x10^3/uL (140-400); RED BLOOD COUNT 4.52 x10^6/uL (4.30-5.70); RED CELL DISTRIBUTION WIDTH 12.8 % (11.5-14.5); WHITE BLOOD COUNT 5.1 x10^3/uL (4.0-11.0)
[2018-04-19 09:42] LABS: ALBUMIN 3.4 g/dL (3.4-5.0); ALBUMIN/GLOBULIN RATIO 0.9 (1.0-1.7); CALCIUM 8.6 mg/dL (8.5-10.1); CREATININE 0.7 mg/dL (0.7-1.3); GFR 110.5; POTASSIUM 3.5 mmol/L (3.5-5.1); TOTAL BILIRUBIN 0.5 mg/dL (0.2-1.0); TOTAL PROTEIN 7.1 g/dL (6.4-8.2)
[2018-04-19 16:01] VITALS: BP 115/82
[2018-04-19] MEDS: SIMVASTATIN 20 MG TABLET PO SCH (19:20)
[2018-04-19] MEDS: MIRTAZAPINE 7.5 MG TABLET. PO SCH (19:22)
[2018-04-19] MEDS: TAMSULOSIN 0.4 MG CAP.ER.24H. PO SCH (19:22)
--- NOTE | 2018-04-19 22:45 | PDOC ---
Exam Note: Gavin Note: Please also refer to the separate dictated note~for this date of service dictated separately.~Patient seen individually. Discussed the patient with Nursing staff reviewed the chart.~Reviewed interim history and current functioning. Reviewed vital signs,~Labs/ Radiology~and current medications noted below. Continue current treatment with the changes noted in the dictated addendum note Assessment: Vital Signs: Vital Signs Date Time Temp Pulse Resp B/P (MAP) Pulse Ox O2 Delivery O2 Flow Rate FiO2 04/19/18 17:00 63 115/82 04/19/18 16:01 97.7 15 96 04/19/18 06:28 Room Air I&O Intake and Output 04/19/18 06:59 Intake Total 960 ml Balance 960 ml Intake Oral 960 ml # Voids 1 Labs: Laboratory Tests Test 04/19/18 09:00 White Blood Count 5.1 x10^3/uL (4.0-11.0) Red Blood Count 4.52 x10^6/uL (4.30-5.70) Hemoglobin 15.0 g/dL (13.0-17.5) Hematocrit 43.7 % (39.0-53.0) Mean Corpuscular Volume 97 fL (79-100) Mean Corpuscular Hemoglobin 33 pg (25-35) Mean Corpuscular Hemoglobin Concent 34 g/dL (31-37) Red Cell Distribution Width 12.8 % (11.5-14.5) Platelet Count 149 x10^3/uL (140-400) Neutrophils (%) (Auto) 50 % (31-73) Lymphocytes (%) (Auto) 35 % (24-48) Monocytes (%) (Auto) 8 % (0-9) Eosinophils (%) (Auto) 5 % (0-3) H Basophils (%) (Auto) 1 % (0-3) Neutrophils # (Auto) 2.6 x10^3uL (1.8-7.7) Lymphocytes # (Auto) 1.8 x10^3/uL (1.0-4.8) Monocytes # (Auto) 0.4 x10^3/uL (0.0-1.1) Eosinophils # (Auto) 0.3 x10^3/uL (0.0-0.7) Basophils # (Auto) 0.0 x10^3/uL (0.0-0.2) Sodium Level 143 mmol/L (136-145) Potassium Level 3.5 mmol/L (3.5-5.1) Chloride Level 106 mmol/L (98-107) Carbon Dioxide Level 27 mmol/L (21-32) Anion Gap 10 (6-14) Blood Urea Nitrogen 12 mg/dL (8-26) Creatinine 0.7 mg/dL (0.7-1.3) Estimated GFR (Cockcroft-Gault) 110.5 BUN/Creatinine Ratio 17 (6-20) Glucose Level 139 mg/dL (70-99) H Calcium Level 8.6 mg/dL (8.5-10.1) Total Bilirubin 0.5 mg/dL (0.2-1.0) Aspartate Amino Transferase (AST) 21 U/L (15-37) Alanine Aminotransferase (ALT) 9 U/L (16-63) L Alkaline Phosphatase 73 U/L (46-116) Total Protein 7.1 g/dL (6.4-8.2) Albumin 3.4 g/dL (3.4-5.0) Albumin/Globulin Ratio 0.9 (1.0-1.7) L Current Medications: Meds: Current Medications Acetaminophen (Tylenol) 650 mg PRN Q4HRS PRN PO FEVER; Start 04/13/18 at 19:00 ; Stop 04/14/18 at 18:59; Status Cancel Acetaminophen (Tylenol) 650 mg PRN Q6HRS PRN PO PAIN / TEMP; Start 04/13/18 at 21:15 Multi-Ingredient Ointment (Analgesic [place]) 1 nicole PRN QID PRN TP MUSCLE PAIN; Start 04/13/18 at 21:15 Al Hydroxide/Mg Hydroxide (Mylanta Plus Xs) 15 ml PRN AFTMEALHC PRN PO DYSPEPSIA; Start 04/13/18 at 21:15 Magnesium Hydroxide (Milk Of Magnesia) 2,400 mg PRN QHS PRN PO CONSTIPATION; Start 04/13/18 at 21:15 Olanzapine (ZyPREXA ZYDIS) 2.5 mg PRN Q2HR PRN PO PSYCHOSIS Last administered on 04/19/18at 21:49; Start 04/13/18 at 22:15 Acetaminophen (Tylenol) 650 mg TID PO Last administered on 04/19/18 19:21; Start 04/14/18 at 09:00 Tamsulosin HCl (Flomax) 0.4 mg QHS PO Last administered on 04/19/18 19:22; Start 04/14/18 at 21:00 Bisacodyl (Dulcolax Supp) 10 mg PRN DAILY PRN [place] CONSTIPATION; Start 04/13/18 at 22:30 Carvedilol (Coreg) 12.5 mg BIDWMEALS PO Last administered on 04/19/18 17:00; Start 04/14/18 at 08:00 Guaifenesin (Robitussin Dm) 10 ml PRN Q4HRS PRN PO COUGH; Start 04/13/18 at 22: 30 Divalproex Sodium (Depakote Er) 250 mg BID PO Last administered on 04/19/18 08 :30; Start 04/14/18 at 09:00; Stop 04/19/18 at 17:06; Status DC Duloxetine HCl (Cymbalta) 30 mg BID PO Last administered on 04/19/18 19:20; Start 04/14/18 at 09:00 Polyethylene Glycol (miraLAX) 17 gm PRN DAILY PRN PO CONSTIPATION; Start at 09:00 Quetiapine Fumarate (SEROquel) 12.5 mg DAILY PO Last administered on 04/19/18 08:31; Start 04/14/18 at 09:00 Quetiapine Fumarate (SEROquel) 12.5 mg Q24H PO Last administered on 04/19/18 13:58; Start 04/14/18 at 13:00 Quetiapine Fumarate (SEROquel) 25 mg QHS PO Last administered on 04/19/18 19: 20; Start 04/13/18 at 22:30 Simvastatin (Zocor) 20 mg HS PO Last administered on 04/19/18 19:20; Start at 21:00 Mirtazapine (Remeron) 7.5 mg QHS PO Last administered on 04/19/18 19:22; Start 04/15/18 at 21:00 Aspirin (Children'S Aspirin) 162 mg DAILYWBKFT PO Last administered on 08:29; Start 04/18/18 at 08:00 Divalproex Sodium (Depakote Er) 750 mg HS PO ; Start 04/20/18 at 21:00 Active Scripts Active Reported Tylenol (Acetaminophen) 325 Mg Tablet 650 Mg PO TID Tussin Cough (Dextromethorphan Hbr) 15 Mg/5 Ml Liquid 15 Mg PO PRN Q4HRS PRN Flomax (Tamsulosin Hcl) 0.4 Mg Cap.er.24h 0.4 Mg PO QHS Simvastatin 20 Mg Tablet 20 Mg PO HS Seroquel (Quetiapine Fumarate) 25 Mg Tablet 25 Mg PO QHS Seroquel (Quetiapine Fumarate) 25 Mg Tablet 12.5 Mg PO DAILY Seroquel (Quetiapine Fumarate) 25 Mg Tablet 12.5 Mg PO DAILY@1300 Miralax (Polyethylene Glycol 3350) 17 Gm Powd.pack 17 Gm PO PRN DAILY PRN Depakote Er (Divalproex Sodium) 250 Mg Tab.er.24h 250 Mg PO BID Cymbalta (Duloxetine Hcl) 30 Mg Capsule.dr 30 Mg PO BID Coreg (Carvedilol) 25 Mg Tablet 12.5 Mg PO DAILY Bisacodyl 10 Mg Supp.rect 10 Mg RC PRN DAILY PRN I have reviewed the current psychotropics carefully including drug interactions. Risk benefit ratio favors no change other than as noted in my dictated progress note. Diagnosis: Problems: (1) Anxiety disorder (2) Dementia in Alzheimer's disease with delusions (3) Dementia in Alzheimer's disease with depression (4) Dementia, vascular, with delusions (5) Dementia, vascular, with depression (6) Impulse control disorder BYRON ACEVES MD Apr 19, 2018 22:45
--- NOTE | 2018-04-19 23:21 | PN ---
DATE: 04/17/2018 This late entry for 04/17/2018 covers elements not covered in my initial note. SUBJECTIVE: I met with the patient in the evening and staffed at a treatment team meeting with the entire team earlier in the day. The patient slept 5 hours previous night. Appetite 80%, oriented just to himself. Speech is word "salad," compliant with medications. Reviewed his history at length. CT head shows a wedge-shaped area in the right parietal lobe. No fracture, unclear if this is acute. We will consult Dr. Cunningham, Neurology, for this. We did start him on 2 baby aspirins a day. REVIEW OF SYSTEMS: Ambulation impaired, in wheelchair. No CV, , pulmonary, eye, ENT system symptoms on review. MENTAL STATUS EXAM: Oriented to himself. Insight, judgment, recent and remote memory, attention, concentration, fund of knowledge poor, consistent with his diagnosis mentioned in my initial note. IMPRESSION: Major neurocognitive disorder, vascular with delusion, depression, behavioral disturbance; anxiety disorder, unspecified; impulse control disorder, unspecified. Rest unchanged. PLAN: No change from initial note. Reviewed psychotropics at some length and drug interaction. MAN Roxana ACEVES MD DR: DANN/brittni JOB#: [id number] / [id number]
--- NOTE | 2018-04-19 23:24 | PN ---
DATE: 04/18/2018 PSYCHIATRIC PROGRESS NOTE This late entry 04/18/2018 covers elements not covered in my initial note. SUBJECTIVE: I met with the patient in the evening. The patient slept 6-1/2 hours previous night. He needed Zyprexa p.r.n. at 1:00 p.m. because of his agitation, was kicking at the [employer], agitated, aggressive, disruptive. Later, he was less resistive to being dressed. REVIEW OF SYSTEMS: Ambulation impaired, in wheelchair. No CV, , pulmonary, eye, ENT system symptoms on review. Reliability poor. MENTAL STATUS EXAM: Oriented to himself. Insight, judgment, recent and remote memory, attention, concentration, fund of knowledge poor, consistent with his diagnosis mentioned in my initial note. PLAN: No change from initial note. We will await Neurology, consult with Dr. Cunningham consequent to his CT head lesion. Continue rest of the psychotropics for now. BYRON ACEVES MD DR: DANN/brittni JOB#: [id number] / [id number]
[2018-04-20 07:10] VITALS: BP 119/76
[2018-04-20] MEDS: ASPIRIN 81 MG TAB.CHEW PO SCH (07:51)
[2018-04-20] MEDS: CARVEDILOL 12.5 MG TABLET PO SCH ×2 (07:51→17:35)
[2018-04-20] MEDS: DULoxetine HCL 30 MG CAPSULE.DR PO SCH ×2 (07:52→20:14)
[2018-04-20] MEDS: QUEtiapine 25 MG TABLET. PO SCH ×3 (07:53→20:14)
[2018-04-20] MEDS: ACETAMINOPHEN 325 MG TABLET PO SCH ×3 (07:53→20:14)
[2018-04-20 15:46] VITALS: BP 122/83
[2018-04-20] MEDS: TAMSULOSIN 0.4 MG CAP.ER.24H. PO SCH (20:14)
[2018-04-20] MEDS: SIMVASTATIN 20 MG TABLET PO SCH (20:14)
[2018-04-20] MEDS: MIRTAZAPINE 7.5 MG TABLET. PO SCH (20:14)
[2018-04-20] MEDS: DIVALPROEX ER 250 MG TAB.ER.24H. PO SCH (20:15)
--- NOTE | 2018-04-20 21:39 | PDOC ---
Exam Note: Gavin Note: Please also refer to the separate dictated note~for this date of service dictated separately.~Patient seen individually. Discussed the patient with Nursing staff reviewed the chart.~Reviewed interim history and current functioning. Reviewed vital signs,~Labs/ Radiology~and current medications noted below. Continue current treatment with the changes noted in the dictated addendum note Assessment: Vital Signs: Vital Signs Date Time Temp Pulse Resp B/P (MAP) Pulse Ox O2 Delivery O2 Flow Rate FiO2 04/20/18 17:35 68 122/83 04/20/18 15:46 97.9 18 97 Room Air I&O Intake and Output 04/20/18 07:00 Intake Total 1080 ml Balance 1080 ml Intake Oral 1080 ml # Voids 2 Current Medications: Meds: Current Medications Acetaminophen (Tylenol) 650 mg PRN Q4HRS PRN PO FEVER; Start 04/13/18 at 19:00 ; Stop 04/14/18 at 18:59; Status Cancel Acetaminophen (Tylenol) 650 mg PRN Q6HRS PRN PO PAIN / TEMP; Start 04/13/18 at 21:15 Multi-Ingredient Ointment (Analgesic [place]) 1 nicole PRN QID PRN TP MUSCLE PAIN; Start 04/13/18 at 21:15 Al Hydroxide/Mg Hydroxide (Mylanta Plus Xs) 15 ml PRN AFTMEALHC PRN PO DYSPEPSIA; Start 04/13/18 at 21:15 Magnesium Hydroxide (Milk Of Magnesia) 2,400 mg PRN QHS PRN PO CONSTIPATION; Start 04/13/18 at 21:15 Olanzapine (ZyPREXA ZYDIS) 2.5 mg PRN Q2HR PRN PO PSYCHOSIS Last administered on 04/19/18at 21:49; Start 04/13/18 at 22:15 Acetaminophen (Tylenol) 650 mg TID PO Last administered on 04/20/18at 20:14; Start 04/14/18 at 09:00 Tamsulosin HCl (Flomax) 0.4 mg QHS PO Last administered on 04/20/18at 20:14; Start 04/14/18 at 21:00 Bisacodyl (Dulcolax Supp) 10 mg PRN DAILY PRN [place] CONSTIPATION; Start 04/13/18 at 22:30 Carvedilol (Coreg) 12.5 mg BIDWMEALS PO Last administered on 04/20/18 17:35; Start 04/14/18 at 08:00 Guaifenesin (Robitussin Dm) 10 ml PRN Q4HRS PRN PO COUGH; Start 04/13/18 at 22: 30 Divalproex Sodium (Depakote Er) 250 mg BID PO Last administered on 04/19/18 08 :30; Start 04/14/18 at 09:00; Stop 04/19/18 at 17:06; Status DC Duloxetine HCl (Cymbalta) 30 mg BID PO Last administered on 04/20/18 20:14; Start 04/14/18 at 09:00 Polyethylene Glycol (miraLAX) 17 gm PRN DAILY PRN PO CONSTIPATION; Start at 09:00 Quetiapine Fumarate (SEROquel) 12.5 mg DAILY PO Last administered on 04/20/18 07:53; Start 04/14/18 at 09:00 Quetiapine Fumarate (SEROquel) 12.5 mg Q24H PO Last administered on 04/19/18 13:58; Start 04/14/18 at 13:00 Quetiapine Fumarate (SEROquel) 25 mg QHS PO Last administered on 04/20/18 20: 14; Start 04/13/18 at 22:30 Simvastatin (Zocor) 20 mg HS PO Last administered on 04/20/18 20:14; Start at 21:00 Mirtazapine (Remeron) 7.5 mg QHS PO Last administered on 04/20/18 20:14; Start 04/15/18 at 21:00 Aspirin (Children'S Aspirin) 162 mg DAILYWBKFT PO Last administered on 07:51; Start 04/18/18 at 08:00 Divalproex Sodium (Depakote Er) 750 mg HS PO Last administered on 04/20/18 20: 15; Start 04/20/18 at 21:00 Active Scripts Active Reported Tylenol (Acetaminophen) 325 Mg Tablet 650 Mg PO TID Tussin Cough (Dextromethorphan Hbr) 15 Mg/5 Ml Liquid 15 Mg PO PRN Q4HRS PRN Flomax (Tamsulosin Hcl) 0.4 Mg Cap.er.24h 0.4 Mg PO QHS Simvastatin 20 Mg Tablet 20 Mg PO HS Seroquel (Quetiapine Fumarate) 25 Mg Tablet 25 Mg PO QHS Seroquel (Quetiapine Fumarate) 25 Mg Tablet 12.5 Mg PO DAILY Seroquel (Quetiapine Fumarate) 25 Mg Tablet 12.5 Mg PO DAILY@1300 Miralax (Polyethylene Glycol 3350) 17 Gm Powd.pack 17 Gm PO PRN DAILY PRN Depakote Er (Divalproex Sodium) 250 Mg Tab.er.24h 250 Mg PO BID Cymbalta (Duloxetine Hcl) 30 Mg Capsule.dr 30 Mg PO BID Coreg (Carvedilol) 25 Mg Tablet 12.5 Mg PO DAILY Bisacodyl 10 Mg Supp.rect 10 Mg RC PRN DAILY PRN I have reviewed the current psychotropics carefully including drug interactions. Risk benefit ratio favors no change other than as noted in my dictated progress note. Diagnosis: Problems: (1) Anxiety disorder (2) Dementia in Alzheimer's disease with delusions (3) Dementia in Alzheimer's disease with depression (4) Dementia, vascular, with delusions (5) Dementia, vascular, with depression (6) Impulse control disorder BYRON ACEVES MD Apr 20, 2018 21:39
[2018-04-21 06:19] VITALS: BP 133/78
[2018-04-21] MEDS: QUEtiapine 25 MG TABLET. PO SCH ×3 (08:15→20:14)
[2018-04-21] MEDS: CARVEDILOL 12.5 MG TABLET PO SCH ×2 (08:15→17:25)
[2018-04-21] MEDS: ASPIRIN 81 MG TAB.CHEW PO SCH (08:15)
[2018-04-21] MEDS: DULoxetine HCL 30 MG CAPSULE.DR PO SCH ×2 (08:15→20:14)
[2018-04-21] MEDS: MAGNESIUM HYDROXIDE 2,400 MG/30 ML ORAL.SUSP. PO PRN ×2 (08:15→23:21)
[2018-04-21] MEDS: ACETAMINOPHEN 325 MG TABLET PO SCH ×3 (08:16→20:14)
[2018-04-21 16:16] VITALS: BP 115/82
--- NOTE | 2018-04-21 17:28 | PN ---
DATE: 04/19/2018 PSYCHIATRIC PROGRESS NOTE This late entry 04/19/2018 covers elements, not covered in my initial note. SUBJECTIVE: I met with the patient in the evening. The patient slept 6-3/4 hours previous night. He has been agitated, intermittently received Zyprexa at 1540, ambulating on assisted, is a fall risk, punching at staff, grabbed female nursing staff in the crotch area per nursing report, gets overstimulated with noise, has to be to the [place]. REVIEW OF SYSTEMS: Ambulation impaired with walker or wheelchair. No CV, , pulmonary, eye, ENT system symptoms on review. Reliability poor. MENTAL STATUS EXAM: Oriented to himself. Insight, judgment, recent and remote memory, attention, concentration, fund of knowledge poor, consistent with his diagnosis. IMPRESSION: Major neurocognitive disorder, Alzheimer, vascular with delusion, depression, behavioral disturbance; anxiety disorder, unspecified; impulse control disorder, unspecified. PLAN: Valproic acid level, subtherapeutic at 45, on Depakote ER 250 b.i.d. We will change this to Depakote ER 750 at bedtime. Check CBC, CMP, valproic acid level in 3 days, carefully reviewed drug interactions through the rest of the psychotropics, which we will maintain for now. BYRON ACEVES MD DR: DANN/brittni JOB#: [id number] / [id number]
--- NOTE | 2018-04-21 19:45 | PDOC ---
Exam Note: Gavin Note: Please also refer to the separate dictated note~for this date of service dictated separately.~Patient seen individually. Discussed the patient with Nursing staff reviewed the chart.~Reviewed interim history and current functioning. Reviewed vital signs,~Labs/ Radiology~and current medications noted below. Continue current treatment with the changes noted in the dictated addendum note Assessment: Vital Signs: Vital Signs Date Time Temp Pulse Resp B/P (MAP) Pulse Ox O2 Delivery O2 Flow Rate FiO2 04/21/18 17:25 69 115/82 04/21/18 16:16 98.1 18 98 04/20/18 15:46 Room Air I&O Intake and Output 04/21/18 06:59 Intake Total 480 ml Balance 480 ml Intake Oral 480 ml # Voids 1 Current Medications: Meds: Current Medications Acetaminophen (Tylenol) 650 mg PRN Q4HRS PRN PO FEVER; Start 04/13/18 at 19:00 ; Stop 04/14/18 at 18:59; Status Cancel Acetaminophen (Tylenol) 650 mg PRN Q6HRS PRN PO PAIN / TEMP; Start 04/13/18 at 21:15 Multi-Ingredient Ointment (Analgesic [place]) 1 nicole PRN QID PRN TP MUSCLE PAIN; Start 04/13/18 at 21:15 Al Hydroxide/Mg Hydroxide (Mylanta Plus Xs) 15 ml PRN AFTMEALHC PRN PO DYSPEPSIA; Start 04/13/18 at 21:15 Magnesium Hydroxide (Milk Of Magnesia) 2,400 mg PRN QHS PRN PO CONSTIPATION Last administered on 04/21/18at 08:15; Start 04/13/18 at 21:15 Olanzapine (ZyPREXA ZYDIS) 2.5 mg PRN Q2HR PRN PO PSYCHOSIS Last administered on 04/19/18at 21:49; Start 04/13/18 at 22:15 Acetaminophen (Tylenol) 650 mg TID PO Last administered on 04/21/18at 14:00; Start 04/14/18 at 09:00 Tamsulosin HCl (Flomax) 0.4 mg QHS PO Last administered on 04/20/18at 20:14; Start 04/14/18 at 21:00 Bisacodyl (Dulcolax Supp) 10 mg PRN DAILY PRN [place] CONSTIPATION; Start 04/13/18 at 22:30 Carvedilol (Coreg) 12.5 mg BIDWMEALS PO Last administered on 04/21/18 17:25; Start 04/14/18 at 08:00 Guaifenesin (Robitussin Dm) 10 ml PRN Q4HRS PRN PO COUGH; Start 04/13/18 at 22: 30 Divalproex Sodium (Depakote Er) 250 mg BID PO Last administered on 04/19/18 08 :30; Start 04/14/18 at 09:00; Stop 04/19/18 at 17:06; Status DC Duloxetine HCl (Cymbalta) 30 mg BID PO Last administered on 04/21/18 08:15; Start 04/14/18 at 09:00 Polyethylene Glycol (miraLAX) 17 gm PRN DAILY PRN PO CONSTIPATION; Start at 09:00 Quetiapine Fumarate (SEROquel) 12.5 mg DAILY PO Last administered on 04/21/18 08:15; Start 04/14/18 at 09:00 Quetiapine Fumarate (SEROquel) 12.5 mg Q24H PO Last administered on 04/21/18 14:00; Start 04/14/18 at 13:00 Quetiapine Fumarate (SEROquel) 25 mg QHS PO Last administered on 04/20/18 20: 14; Start 04/13/18 at 22:30 Simvastatin (Zocor) 20 mg HS PO Last administered on 04/20/18 20:14; Start at 21:00 Mirtazapine (Remeron) 7.5 mg QHS PO Last administered on 04/20/18 20:14; Start 04/15/18 at 21:00 Aspirin (Children'S Aspirin) 162 mg DAILYWBKFT PO Last administered on 08:15; Start 04/18/18 at 08:00 Divalproex Sodium (Depakote Er) 750 mg HS PO Last administered on 04/20/18 20: 15; Start 04/20/18 at 21:00 Active Scripts Active Reported Tylenol (Acetaminophen) 325 Mg Tablet 650 Mg PO TID Tussin Cough (Dextromethorphan Hbr) 15 Mg/5 Ml Liquid 15 Mg PO PRN Q4HRS PRN Flomax (Tamsulosin Hcl) 0.4 Mg Cap.er.24h 0.4 Mg PO QHS Simvastatin 20 Mg Tablet 20 Mg PO HS Seroquel (Quetiapine Fumarate) 25 Mg Tablet 25 Mg PO QHS Seroquel (Quetiapine Fumarate) 25 Mg Tablet 12.5 Mg PO DAILY Seroquel (Quetiapine Fumarate) 25 Mg Tablet 12.5 Mg PO DAILY@1300 Miralax (Polyethylene Glycol 3350) 17 Gm Powd.pack 17 Gm PO PRN DAILY PRN Depakote Er (Divalproex Sodium) 250 Mg Tab.er.24h 250 Mg PO BID Cymbalta (Duloxetine Hcl) 30 Mg Capsule.dr 30 Mg PO BID Coreg (Carvedilol) 25 Mg Tablet 12.5 Mg PO DAILY Bisacodyl 10 Mg Supp.rect 10 Mg RC PRN DAILY PRN I have reviewed the current psychotropics carefully including drug interactions. Risk benefit ratio favors no change other than as noted in my dictated progress note. Diagnosis: Problems: (1) Anxiety disorder (2) Dementia in Alzheimer's disease with delusions (3) Dementia in Alzheimer's disease with depression (4) Dementia, vascular, with delusions (5) Dementia, vascular, with depression (6) Impulse control disorder BYRON ACEVES MD Apr 21, 2018 19:45
[2018-04-21] MEDS: SIMVASTATIN 20 MG TABLET PO SCH (20:14)
[2018-04-21] MEDS: DIVALPROEX ER 250 MG TAB.ER.24H. PO SCH (20:14)
[2018-04-21] MEDS: MIRTAZAPINE 7.5 MG TABLET. PO SCH (20:14)
[2018-04-21] MEDS: TAMSULOSIN 0.4 MG CAP.ER.24H. PO SCH (20:14)
[2018-04-22 06:14] VITALS: BP 160/90
[2018-04-22] MEDS: ASPIRIN 81 MG TAB.CHEW PO SCH (08:09)
[2018-04-22] MEDS: CARVEDILOL 12.5 MG TABLET PO SCH ×2 (08:09→17:21)
[2018-04-22] MEDS: QUEtiapine 25 MG TABLET. PO SCH ×3 (08:10→19:29)
[2018-04-22] MEDS: DULoxetine HCL 30 MG CAPSULE.DR PO SCH ×2 (08:10→19:29)
[2018-04-22] MEDS: ACETAMINOPHEN 325 MG TABLET PO SCH ×3 (08:10→19:29)
[2018-04-22 15:58] VITALS: BP 146/96
--- NOTE | 2018-04-22 19:20 | PN ---
DATE: 04/20/2018 PSYCHIATRIC PROGRESS NOTE This late entry 04/20/2018 covers elements not covered in my initial note SUBJECTIVE: I met with the patient in the evening. The patient slept 4-3/4 hours previous night. He remains confused, anxious, restless at times, but less agitated. REVIEW OF SYSTEMS: Ambulation impaired, in [place] chair. No CV, , pulmonary, eye, ENT system symptoms on review. Reliability poor. MENTAL STATUS EXAMINATION: Oriented to himself. Insight, judgment, recent and remote memory, attention, concentration, fund of knowledge poor, consistent with his diagnosis mentioned in my initial note. PLAN: No change from initial note. MAN Roxana ACEVES MD DR: DANN/brittni JOB#: [id number] / [id number]
--- NOTE | 2018-04-22 19:22 | PN ---
DATE: 04/21/2018 PSYCHIATRIC PROGRESS NOTE This late entry 04/21/2018 covers elements, not covered in my initial note. SUBJECTIVE: I met with the patient in the evening. The patient slept 5 hours previous night. Remains confused, restless, compliant with medications. REVIEW OF SYSTEMS: Ambulation impaired, in wheelchair. No CV, , pulmonary, eye, ENT system symptoms on review. MENTAL STATUS EXAMINATION: Oriented to himself. Insight, judgment, recent and remote memory, attention, concentration, fund of knowledge poor, consistent with his diagnosis mentioned in my initial note. PLAN: Increase Remeron from 7.5 to 15 mg at bedtime. Rest unchanged per initial note. MAN Roxana ACEVES MD DR: DANN/brittni JOB#: [id number] / [id number]
[2018-04-22] MEDS: SIMVASTATIN 20 MG TABLET PO SCH (19:29)
[2018-04-22] MEDS: DIVALPROEX ER 250 MG TAB.ER.24H. PO SCH (19:29)
[2018-04-22] MEDS: TAMSULOSIN 0.4 MG CAP.ER.24H. PO SCH (19:29)
[2018-04-22] MEDS: MIRTAZAPINE 7.5 MG TABLET. PO SCH (19:31)
--- NOTE | 2018-04-22 22:25 | PDOC ---
Exam Note: Gavin Note: Please also refer to the separate dictated note~for this date of service dictated separately.~Patient seen individually. Discussed the patient with Nursing staff reviewed the chart.~Reviewed interim history and current functioning. Reviewed vital signs,~Labs/ Radiology~and current medications noted below. Continue current treatment with the changes noted in the dictated addendum note Assessment: Vital Signs: Vital Signs Date Time Temp Pulse Resp B/P (MAP) Pulse Ox O2 Delivery O2 Flow Rate FiO2 04/22/18 17:21 70 146/96 04/22/18 15:58 98.1 16 93 04/20/18 15:46 Room Air I&O Intake and Output 04/22/18 06:59 Intake Total 1200 ml Balance 1200 ml Intake Oral 1200 ml # Voids 2 Current Medications: Meds: Current Medications Acetaminophen (Tylenol) 650 mg PRN Q4HRS PRN PO FEVER; Start 04/13/18 at 19:00 ; Stop 04/14/18 at 18:59; Status Cancel Acetaminophen (Tylenol) 650 mg PRN Q6HRS PRN PO PAIN / TEMP; Start 04/13/18 at 21:15 Multi-Ingredient Ointment (Analgesic [place]) 1 nicole PRN QID PRN TP MUSCLE PAIN; Start 04/13/18 at 21:15 Al Hydroxide/Mg Hydroxide (Mylanta Plus Xs) 15 ml PRN AFTMEALHC PRN PO DYSPEPSIA; Start 04/13/18 at 21:15 Magnesium Hydroxide (Milk Of Magnesia) 2,400 mg PRN QHS PRN PO CONSTIPATION Last administered on 04/21/18at 23:21; Start 04/13/18 at 21:15 Olanzapine (ZyPREXA ZYDIS) 2.5 mg PRN Q2HR PRN PO PSYCHOSIS Last administered on 04/22/18at 16:39; Start 04/13/18 at 22:15 Acetaminophen (Tylenol) 650 mg TID PO Last administered on 04/22/18at 19:29; Start 04/14/18 at 09:00 Tamsulosin HCl (Flomax) 0.4 mg QHS PO Last administered on 04/22/18at 19:29; Start 04/14/18 at 21:00 Bisacodyl (Dulcolax Supp) 10 mg PRN DAILY PRN [place] CONSTIPATION; Start 04/13/18 at 22:30 Carvedilol (Coreg) 12.5 mg BIDWMEALS PO Last administered on 04/22/18 17:21; Start 04/14/18 at 08:00 Guaifenesin (Robitussin Dm) 10 ml PRN Q4HRS PRN PO COUGH; Start 04/13/18 at 22: 30 Divalproex Sodium (Depakote Er) 250 mg BID PO Last administered on 04/19/18 08 :30; Start 04/14/18 at 09:00; Stop 04/19/18 at 17:06; Status DC Duloxetine HCl (Cymbalta) 30 mg BID PO Last administered on 04/22/18 19:29; Start 04/14/18 at 09:00 Polyethylene Glycol (miraLAX) 17 gm PRN DAILY PRN PO CONSTIPATION; Start at 09:00 Quetiapine Fumarate (SEROquel) 12.5 mg DAILY PO Last administered on 04/22/18 08:10; Start 04/14/18 at 09:00 Quetiapine Fumarate (SEROquel) 12.5 mg Q24H PO Last administered on 04/22/18 13:01; Start 04/14/18 at 13:00 Quetiapine Fumarate (SEROquel) 25 mg QHS PO Last administered on 04/22/18 19: 29; Start 04/13/18 at 22:30 Simvastatin (Zocor) 20 mg HS PO Last administered on 04/22/18 19:29; Start at 21:00 Mirtazapine (Remeron) 7.5 mg QHS PO Last administered on 04/21/18 20:14; Start 04/15/18 at 21:00; Stop 04/21/18 at 23:22; Status DC Aspirin (Children'S Aspirin) 162 mg DAILYWBKFT PO Last administered on 08:09; Start 04/18/18 at 08:00 Divalproex Sodium (Depakote Er) 750 mg HS PO Last administered on 04/22/18 19: 29; Start 04/20/18 at 21:00 Mirtazapine (Remeron) 15 mg QHS PO Last administered on 04/22/18 19:31; Start 04/22/18 at 21:00 Quetiapine Fumarate (SEROquel) 12.5 mg DAILYWSUP PO ; Start 04/23/18 at 17:00 Active Scripts Active Reported Tylenol (Acetaminophen) 325 Mg Tablet 650 Mg PO TID Tussin Cough (Dextromethorphan Hbr) 15 Mg/5 Ml Liquid 15 Mg PO PRN Q4HRS PRN Flomax (Tamsulosin Hcl) 0.4 Mg Cap.er.24h 0.4 Mg PO QHS Simvastatin 20 Mg Tablet 20 Mg PO HS Seroquel (Quetiapine Fumarate) 25 Mg Tablet 25 Mg PO QHS Seroquel (Quetiapine Fumarate) 25 Mg Tablet 12.5 Mg PO DAILY Seroquel (Quetiapine Fumarate) 25 Mg Tablet 12.5 Mg PO DAILY@1300 Miralax (Polyethylene Glycol 3350) 17 Gm Powd.pack 17 Gm PO PRN DAILY PRN Depakote Er (Divalproex Sodium) 250 Mg Tab.er.24h 250 Mg PO BID Cymbalta (Duloxetine Hcl) 30 Mg Capsule.dr 30 Mg PO BID Coreg (Carvedilol) 25 Mg Tablet 12.5 Mg PO DAILY Bisacodyl 10 Mg Supp.rect 10 Mg RC PRN DAILY PRN I have reviewed the current psychotropics carefully including drug interactions. Risk benefit ratio favors no change other than as noted in my dictated progress note. Diagnosis: Problems: (1) Anxiety disorder (2) Dementia in Alzheimer's disease with delusions (3) Dementia in Alzheimer's disease with depression (4) Dementia, vascular, with delusions (5) Dementia, vascular, with depression (6) Impulse control disorder BYRON ACEVES MD Apr 22, 2018 22:25
[2018-04-23 06:10] VITALS: BP 150/100
[2018-04-23] MEDS: ACETAMINOPHEN 325 MG TABLET PO SCH ×3 (07:55→20:32)
[2018-04-23] MEDS: CARVEDILOL 12.5 MG TABLET PO SCH ×2 (07:55→17:26)
[2018-04-23] MEDS: ASPIRIN 81 MG TAB.CHEW PO SCH (07:55)
[2018-04-23] MEDS: QUEtiapine 25 MG TABLET. PO SCH ×4 (07:56→20:32)
[2018-04-23] MEDS: DULoxetine HCL 30 MG CAPSULE.DR PO SCH ×2 (07:56→20:32)
[2018-04-23 08:25] LABS: VAL ACID 42 mcg/mL (50-100)
[2018-04-23 08:31] LABS: BASO % 1 % (0-3); EOS # 0.3 x10^3/uL (0.0-0.7); EOS % 5 % (0-3); HEMATOCRIT 45.7 % (39.0-53.0); HEMOGLOBIN 15.5 g/dL (13.0-17.5); LYMPH % 33 % (24-48); MEAN CORPUSCULAR HEMOGLOBIN 33 pg (25-35); MEAN CORPUSCULAR HGB CONC 34 g/dL (31-37); MEAN CORPUSCULAR VOLUME 98 fL (79-100); MONO # 0.5 x10^3/uL (0.0-1.1); MONO % 9 % (0-9); NEUT # 3.1 x10^3uL (1.8-7.7); NEUT % 52 % (31-73); PLATELET COUNT 181 x10^3/uL (140-400); RED BLOOD COUNT 4.67 x10^6/uL (4.30-5.70); RED CELL DISTRIBUTION WIDTH 12.9 % (11.5-14.5)
[2018-04-23 08:33] LABS: ALBUMIN 3.4 g/dL (3.4-5.0); CALCIUM 8.7 mg/dL (8.5-10.1); CREATININE 0.6 mg/dL (0.7-1.3); GFR 131.7; POTASSIUM 4.2 mmol/L (3.5-5.1); TOTAL BILIRUBIN 0.4 mg/dL (0.2-1.0); TOTAL PROTEIN 6.8 g/dL (6.4-8.2)
[2018-04-23] MEDS: BISACODYL 10 MG SUPP.RECT PR PRN (15:57)
[2018-04-23 16:26] VITALS: BP 125/90
[2018-04-23] MEDS: MIRTAZAPINE 7.5 MG TABLET. PO SCH (20:30)
[2018-04-23] MEDS: SIMVASTATIN 20 MG TABLET PO SCH (20:31)
[2018-04-23] MEDS: TAMSULOSIN 0.4 MG CAP.ER.24H. PO SCH (20:32)
[2018-04-23] MEDS: DIVALPROEX ER 500 MG TAB.ER.24H PO SCH (20:33)
--- NOTE | 2018-04-23 22:31 | PDOC ---
Exam Note: Gavin Note: Please also refer to the separate dictated note~for this date of service dictated separately.~Patient seen individually. Discussed the patient with Nursing staff reviewed the chart.~Reviewed interim history and current functioning. Reviewed vital signs,~Labs/ Radiology~and current medications noted below. Continue current treatment with the changes noted in the dictated addendum note Assessment: Vital Signs: Vital Signs Date Time Temp Pulse Resp B/P (MAP) Pulse Ox O2 Delivery O2 Flow Rate FiO2 04/23/18 17:26 69 125/90 04/23/18 16:26 97.5 18 97 04/20/18 15:46 Room Air I&O Intake and Output 04/23/18 06:59 Intake Total 840 ml Balance 840 ml Intake Oral 840 ml Labs: Laboratory Tests Test 04/23/18 07:39 White Blood Count 6.0 x10^3/uL (4.0-11.0) Red Blood Count 4.67 x10^6/uL (4.30-5.70) Hemoglobin 15.5 g/dL (13.0-17.5) Hematocrit 45.7 % (39.0-53.0) Mean Corpuscular Volume 98 fL (79-100) Mean Corpuscular Hemoglobin 33 pg (25-35) Mean Corpuscular Hemoglobin Concent 34 g/dL (31-37) Red Cell Distribution Width 12.9 % (11.5-14.5) Platelet Count 181 x10^3/uL (140-400) Neutrophils (%) (Auto) 52 % (31-73) Lymphocytes (%) (Auto) 33 % (24-48) Monocytes (%) (Auto) 9 % (0-9) Eosinophils (%) (Auto) 5 % (0-3) H Basophils (%) (Auto) 1 % (0-3) Neutrophils # (Auto) 3.1 x10^3uL (1.8-7.7) Lymphocytes # (Auto) 2.0 x10^3/uL (1.0-4.8) Monocytes # (Auto) 0.5 x10^3/uL (0.0-1.1) Eosinophils # (Auto) 0.3 x10^3/uL (0.0-0.7) Basophils # (Auto) 0.0 x10^3/uL (0.0-0.2) Sodium Level 141 mmol/L (136-145) Potassium Level 4.2 mmol/L (3.5-5.1) Chloride Level 107 mmol/L (98-107) Carbon Dioxide Level 26 mmol/L (21-32) Anion Gap 8 (6-14) Blood Urea Nitrogen 11 mg/dL (8-26) Creatinine 0.6 mg/dL (0.7-1.3) L Estimated GFR (Cockcroft-Gault) 131.7 BUN/Creatinine Ratio 18 (6-20) Glucose Level 108 mg/dL (70-99) H Calcium Level 8.7 mg/dL (8.5-10.1) Total Bilirubin 0.4 mg/dL (0.2-1.0) Aspartate Amino Transferase (AST) 26 U/L (15-37) Alanine Aminotransferase (ALT) 12 U/L (16-63) L Alkaline Phosphatase 68 U/L (46-116) Total Protein 6.8 g/dL (6.4-8.2) Albumin 3.4 g/dL (3.4-5.0) Albumin/Globulin Ratio 1.0 (1.0-1.7) Valproic Acid Level 42 mcg/mL (50-100) L Valproic Acid Last Dose Date 04/22/2018 Valproic Acid Last Dose Time 2100 Current Medications: Meds: Current Medications Acetaminophen (Tylenol) 650 mg PRN Q4HRS PRN PO FEVER; Start 04/13/18 at 19:00 ; Stop 04/14/18 at 18:59; Status Cancel Acetaminophen (Tylenol) 650 mg PRN Q6HRS PRN PO PAIN / TEMP; Start 04/13/18 at 21:15 Multi-Ingredient Ointment (Analgesic [place]) 1 nicole PRN QID PRN TP MUSCLE PAIN; Start 04/13/18 at 21:15 Al Hydroxide/Mg Hydroxide (Mylanta Plus Xs) 15 ml PRN AFTMEALHC PRN PO DYSPEPSIA; Start 04/13/18 at 21:15 Magnesium Hydroxide (Milk Of Magnesia) 2,400 mg PRN QHS PRN PO CONSTIPATION Last administered on 04/21/18at 23:21; Start 04/13/18 at 21:15 Olanzapine (ZyPREXA ZYDIS) 2.5 mg PRN Q2HR PRN PO PSYCHOSIS Last administered on 04/23/18 15:57; Start 04/13/18 at 22:15 Acetaminophen (Tylenol) 650 mg TID PO Last administered on 04/23/18 20:32; Start 04/14/18 at 09:00 Tamsulosin HCl (Flomax) 0.4 mg QHS PO Last administered on 04/23/18 20:32; Start 04/14/18 at 21:00 Bisacodyl (Dulcolax Supp) 10 mg PRN DAILY PRN [place] CONSTIPATION Last administered on 04/23/18 15:57; Start 04/13/18 at 22:30 Carvedilol (Coreg) 12.5 mg BIDWMEALS PO Last administered on 04/23/18 17:26; Start 04/14/18 at 08:00 Guaifenesin (Robitussin Dm) 10 ml PRN Q4HRS PRN PO COUGH; Start 04/13/18 at 22: 30 Divalproex Sodium (Depakote Er) 250 mg BID PO Last administered on 04/19/18 08 :30; Start 04/14/18 at 09:00; Stop 04/19/18 at 17:06; Status DC Duloxetine HCl (Cymbalta) 30 mg BID PO Last administered on 04/23/18 20:32; Start 04/14/18 at 09:00 Polyethylene Glycol (miraLAX) 17 gm PRN DAILY PRN PO CONSTIPATION; Start at 09:00 Quetiapine Fumarate (SEROquel) 12.5 mg DAILY PO Last administered on 04/23/18 07:56; Start 04/14/18 at 09:00 Quetiapine Fumarate (SEROquel) 12.5 mg Q24H PO Last administered on 04/23/18 13:16; Start 04/14/18 at 13:00; Stop 04/23/18 at 17:15; Status DC Quetiapine Fumarate (SEROquel) 25 mg QHS PO Last administered on 04/23/18 20: 32; Start 04/13/18 at 22:30 Simvastatin (Zocor) 20 mg HS PO Last administered on 04/23/18 20:31; Start at 21:00 Mirtazapine (Remeron) 7.5 mg QHS PO Last administered on 04/21/18at 20:14; Start 04/15/18 at 21:00; Stop 04/21/18 at 23:22; Status DC Aspirin (Children'S Aspirin) 162 mg DAILYWBKFT PO Last administered on at 07:55; Start 04/18/18 at 08:00 Divalproex Sodium (Depakote Er) 750 mg HS PO Last administered on 04/22/18at 19: 29; Start 04/20/18 at 21:00; Stop 04/23/18 at 17:15; Status DC Mirtazapine (Remeron) 15 mg QHS PO Last administered on 04/23/18at 20:30; Start 04/22/18 at 21:00 Quetiapine Fumarate (SEROquel) 12.5 mg DAILYWSUP PO Last administered on at 17:25; Start 04/23/18 at 17:00 Divalproex Sodium (Depakote Er) 1,000 mg HS PO Last administered on 04/23/18at 20:33; Start 04/23/18 at 21:00 Quetiapine Fumarate (SEROquel) 25 mg Q24H PO ; Start 04/24/18 at 13:00 Hydroxyzine HCl (Atarax) 25 mg PRN Q2HR PRN PO ANXIETY / AGITATION; Start 04/23 at 17:15 Active Scripts Active Reported Tylenol (Acetaminophen) 325 Mg Tablet 650 Mg PO TID Tussin Cough (Dextromethorphan Hbr) 15 Mg/5 Ml Liquid 15 Mg PO PRN Q4HRS PRN Flomax (Tamsulosin Hcl) 0.4 Mg Cap.er.24h 0.4 Mg PO QHS Simvastatin 20 Mg Tablet 20 Mg PO HS Seroquel (Quetiapine Fumarate) 25 Mg Tablet 25 Mg PO QHS Seroquel (Quetiapine Fumarate) 25 Mg Tablet 12.5 Mg PO DAILY Seroquel (Quetiapine Fumarate) 25 Mg Tablet 12.5 Mg PO DAILY@1300 Miralax (Polyethylene Glycol 3350) 17 Gm Powd.pack 17 Gm PO PRN DAILY PRN Depakote Er (Divalproex Sodium) 250 Mg Tab.er.24h 250 Mg PO BID Cymbalta (Duloxetine Hcl) 30 Mg Capsule.dr 30 Mg PO BID Coreg (Carvedilol) 25 Mg Tablet 12.5 Mg PO DAILY Bisacodyl 10 Mg Supp.rect 10 Mg RC PRN DAILY PRN I have reviewed the current psychotropics carefully including drug interactions. Risk benefit ratio favors no change other than as noted in my dictated progress note. Diagnosis: Problems: (1) Anxiety disorder (2) Dementia in Alzheimer's disease with delusions (3) Dementia in Alzheimer's disease with depression (4) Dementia, vascular, with delusions (5) Dementia, vascular, with depression (6) Impulse control disorder BYRON ACEVES MD Apr 23, 2018 22:31
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
[2018-04-24 06:07] VITALS: BP 128/91
[2018-04-24] MEDS: CARVEDILOL 12.5 MG TABLET PO SCH ×2 (08:14→17:00)
[2018-04-24] MEDS: ACETAMINOPHEN 325 MG TABLET PO SCH ×3 (08:15→19:17)
[2018-04-24] MEDS: DULoxetine HCL 30 MG CAPSULE.DR PO SCH ×2 (08:15→19:17)
[2018-04-24] MEDS: ASPIRIN 81 MG TAB.CHEW PO SCH (08:15)
[2018-04-24] MEDS: QUEtiapine 25 MG TABLET. PO SCH ×4 (08:16→19:17)
[2018-04-24 16:00] VITALS: BP 105/64
[2018-04-24] MEDS: hydrOXYzine HCL 25 MG TABLET PO PRN (17:05)
[2018-04-24] MEDS: TAMSULOSIN 0.4 MG CAP.ER.24H. PO SCH (19:17)
[2018-04-24] MEDS: SIMVASTATIN 20 MG TABLET PO SCH (19:17)
[2018-04-24] MEDS: DIVALPROEX ER 500 MG TAB.ER.24H PO SCH (19:17)
[2018-04-24] MEDS: MIRTAZAPINE 7.5 MG TABLET. PO SCH (19:18)
--- NOTE | 2018-04-24 22:34 | PDOC ---
Exam Note: Gavin Note: Please also refer to the separate dictated note~for this date of service dictated separately.~Patient seen individually. Discussed the patient with Nursing staff reviewed the chart.~Reviewed interim history and current functioning. Reviewed vital signs,~Labs/ Radiology~and current medications noted below. Continue current treatment with the changes noted in the dictated addendum note Assessment: Vital Signs: Vital Signs Date Time Temp Pulse Resp B/P (MAP) Pulse Ox O2 Delivery O2 Flow Rate FiO2 04/24/18 17:00 53 105/64 04/24/18 16:00 98.0 16 95 04/20/18 15:46 Room Air I&O Intake and Output 04/24/18 06:59 Intake Total 1080 ml Balance 1080 ml Intake Oral 1080 ml # Bowel Movements 1 Current Medications: Meds: Current Medications Acetaminophen (Tylenol) 650 mg PRN Q4HRS PRN PO FEVER; Start 04/13/18 at 19:00 ; Stop 04/14/18 at 18:59; Status Cancel Acetaminophen (Tylenol) 650 mg PRN Q6HRS PRN PO PAIN / TEMP; Start 04/13/18 at 21:15 Multi-Ingredient Ointment (Analgesic [place]) 1 nicole PRN QID PRN TP MUSCLE PAIN; Start 04/13/18 at 21:15 Al Hydroxide/Mg Hydroxide (Mylanta Plus Xs) 15 ml PRN AFTMEALHC PRN PO DYSPEPSIA; Start 04/13/18 at 21:15 Magnesium Hydroxide (Milk Of Magnesia) 2,400 mg PRN QHS PRN PO CONSTIPATION Last administered on 04/21/18at 23:21; Start 04/13/18 at 21:15 Olanzapine (ZyPREXA ZYDIS) 2.5 mg PRN Q2HR PRN PO PSYCHOSIS Last administered on 04/23/18at 15:57; Start 04/13/18 at 22:15 Acetaminophen (Tylenol) 650 mg TID PO Last administered on 04/24/18at 19:17; Start 04/14/18 at 09:00 Tamsulosin HCl (Flomax) 0.4 mg QHS PO Last administered on 04/24/18at 19:17; Start 04/14/18 at 21:00 Bisacodyl (Dulcolax Supp) 10 mg PRN DAILY PRN [place] CONSTIPATION Last administered on 04/23/18 15:57; Start 04/13/18 at 22:30 Carvedilol (Coreg) 12.5 mg BIDWMEALS PO Last administered on 04/24/18 08:14; Start 04/14/18 at 08:00 Guaifenesin (Robitussin Dm) 10 ml PRN Q4HRS PRN PO COUGH; Start 04/13/18 at 22: 30 Divalproex Sodium (Depakote Er) 250 mg BID PO Last administered on 04/19/18 08 :30; Start 04/14/18 at 09:00; Stop 04/19/18 at 17:06; Status DC Duloxetine HCl (Cymbalta) 30 mg BID PO Last administered on 04/24/18 19:17; Start 04/14/18 at 09:00 Polyethylene Glycol (miraLAX) 17 gm PRN DAILY PRN PO CONSTIPATION; Start at 09:00 Quetiapine Fumarate (SEROquel) 12.5 mg DAILY PO Last administered on 04/24/18 08:16; Start 04/14/18 at 09:00 Quetiapine Fumarate (SEROquel) 12.5 mg Q24H PO Last administered on 04/23/18 13:16; Start 04/14/18 at 13:00; Stop 04/23/18 at 17:15; Status DC Quetiapine Fumarate (SEROquel) 25 mg QHS PO Last administered on 04/24/18 19: 17; Start 04/13/18 at 22:30 Simvastatin (Zocor) 20 mg HS PO Last administered on 04/24/18 19:17; Start at 21:00 Mirtazapine (Remeron) 7.5 mg QHS PO Last administered on 04/21/18 20:14; Start 04/15/18 at 21:00; Stop 04/21/18 at 23:22; Status DC Aspirin (Children'S Aspirin) 162 mg DAILYWBKFT PO Last administered on 08:15; Start 04/18/18 at 08:00 Divalproex Sodium (Depakote Er) 750 mg HS PO Last administered on 04/22/18 19: 29; Start 04/20/18 at 21:00; Stop 04/23/18 at 17:15; Status DC Mirtazapine (Remeron) 15 mg QHS PO Last administered on 04/24/18at 19:18; Start 04/22/18 at 21:00 Quetiapine Fumarate (SEROquel) 12.5 mg DAILYWSUP PO Last administered on at 17:01; Start 04/23/18 at 17:00 Divalproex Sodium (Depakote Er) 1,000 mg HS PO Last administered on 04/24/18at 19:17; Start 04/23/18 at 21:00 Quetiapine Fumarate (SEROquel) 25 mg Q24H PO Last administered on 04/24/18at 13: 00; Start 04/24/18 at 13:00 Hydroxyzine HCl (Atarax) 25 mg PRN Q2HR PRN PO ANXIETY / AGITATION Last administered on 04/24/18 17:05; Start 04/23/18 at 17:15 Active Scripts Active Reported Tylenol (Acetaminophen) 325 Mg Tablet 650 Mg PO TID Tussin Cough (Dextromethorphan Hbr) 15 Mg/5 Ml Liquid 15 Mg PO PRN Q4HRS PRN Flomax (Tamsulosin Hcl) 0.4 Mg Cap.er.24h 0.4 Mg PO QHS Simvastatin 20 Mg Tablet 20 Mg PO HS Seroquel (Quetiapine Fumarate) 25 Mg Tablet 25 Mg PO QHS Seroquel (Quetiapine Fumarate) 25 Mg Tablet 12.5 Mg PO DAILY Seroquel (Quetiapine Fumarate) 25 Mg Tablet 12.5 Mg PO DAILY@1300 Miralax (Polyethylene Glycol 3350) 17 Gm Powd.pack 17 Gm PO PRN DAILY PRN Depakote Er (Divalproex Sodium) 250 Mg Tab.er.24h 250 Mg PO BID Cymbalta (Duloxetine Hcl) 30 Mg Capsule.dr 30 Mg PO BID Coreg (Carvedilol) 25 Mg Tablet 12.5 Mg PO DAILY Bisacodyl 10 Mg Supp.rect 10 Mg RC PRN DAILY PRN I have reviewed the current psychotropics carefully including drug interactions. Risk benefit ratio favors no change other than as noted in my dictated progress note. Diagnosis: Problems: (1) Anxiety disorder (2) Dementia in Alzheimer's disease with delusions (3) Dementia in Alzheimer's disease with depression (4) Dementia, vascular, with delusions (5) Dementia, vascular, with depression (6) Impulse control disorder BYRON ACEVES MD Apr 24, 2018 22:34
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
[2018-04-25 05:50] VITALS: BP 145/100
[2018-04-25] MEDS: DULoxetine HCL 30 MG CAPSULE.DR PO SCH ×2 (07:37→19:32)
[2018-04-25] MEDS: ASPIRIN 81 MG TAB.CHEW PO SCH (07:37)
[2018-04-25] MEDS: QUEtiapine 25 MG TABLET. PO SCH ×4 (07:38→19:33)
[2018-04-25] MEDS: CARVEDILOL 12.5 MG TABLET PO SCH ×2 (07:39→16:45)
[2018-04-25] MEDS: ACETAMINOPHEN 325 MG TABLET PO SCH ×3 (07:39→19:32)
[2018-04-25 16:25] VITALS: BP 122/84
[2018-04-25] MEDS: TAMSULOSIN 0.4 MG CAP.ER.24H. PO SCH (19:32)
[2018-04-25] MEDS: SIMVASTATIN 20 MG TABLET PO SCH (19:32)
[2018-04-25] MEDS: DIVALPROEX ER 500 MG TAB.ER.24H PO SCH (19:32)
[2018-04-25] MEDS: MIRTAZAPINE 7.5 MG TABLET. PO SCH (19:33)
--- NOTE | 2018-04-25 22:30 | PDOC ---
Exam Note: Gavin Note: Please also refer to the separate dictated note~for this date of service dictated separately.~Patient seen individually. Discussed the patient with Nursing staff reviewed the chart.~Reviewed interim history and current functioning. Reviewed vital signs,~Labs/ Radiology~and current medications noted below. Continue current treatment with the changes noted in the dictated addendum note Assessment: Vital Signs: Vital Signs Date Time Temp Pulse Resp B/P (MAP) Pulse Ox O2 Delivery O2 Flow Rate FiO2 04/25/18 16:45 73 122/84 04/25/18 16:25 98.7 16 98 Room Air I&O Intake and Output 04/25/18 07:00 Intake Total 1040 ml Balance 1040 ml Intake Oral 1040 ml # Voids 1 # Bowel Movements 1 Current Medications: Meds: Current Medications Acetaminophen (Tylenol) 650 mg PRN Q4HRS PRN PO FEVER; Start 04/13/18 at 19:00 ; Stop 04/14/18 at 18:59; Status Cancel Acetaminophen (Tylenol) 650 mg PRN Q6HRS PRN PO PAIN / TEMP; Start 04/13/18 at 21:15 Multi-Ingredient Ointment (Analgesic [place]) 1 nicole PRN QID PRN TP MUSCLE PAIN; Start 04/13/18 at 21:15 Al Hydroxide/Mg Hydroxide (Mylanta Plus Xs) 15 ml PRN AFTMEALHC PRN PO DYSPEPSIA; Start 04/13/18 at 21:15 Magnesium Hydroxide (Milk Of Magnesia) 2,400 mg PRN QHS PRN PO CONSTIPATION Last administered on 04/21/18at 23:21; Start 04/13/18 at 21:15 Olanzapine (ZyPREXA ZYDIS) 2.5 mg PRN Q2HR PRN PO PSYCHOSIS Last administered on 04/23/18at 15:57; Start 04/13/18 at 22:15 Acetaminophen (Tylenol) 650 mg TID PO Last administered on 04/25/18 19:32; Start 04/14/18 at 09:00 Tamsulosin HCl (Flomax) 0.4 mg QHS PO Last administered on 04/25/18 19:32; Start 04/14/18 at 21:00 Bisacodyl (Dulcolax Supp) 10 mg PRN DAILY PRN [place] CONSTIPATION Last administered on 2/26/19at 15:57; Start 04/13/18 at 22:30 Carvedilol (Coreg) 12.5 mg BIDWMEALS PO Last administered on 04/25/18 16:45; Start 04/14/18 at 08:00 Guaifenesin (Robitussin Dm) 10 ml PRN Q4HRS PRN PO COUGH; Start 04/13/18 at 22: 30 Divalproex Sodium (Depakote Er) 250 mg BID PO Last administered on 04/19/18 08 :30; Start 04/14/18 at 09:00; Stop 04/19/18 at 17:06; Status DC Duloxetine HCl (Cymbalta) 30 mg BID PO Last administered on 04/25/18 19:32; Start 04/14/18 at 09:00 Polyethylene Glycol (miraLAX) 17 gm PRN DAILY PRN PO CONSTIPATION; Start at 09:00 Quetiapine Fumarate (SEROquel) 12.5 mg DAILY PO Last administered on 04/25/18 07:38; Start 04/14/18 at 09:00 Quetiapine Fumarate (SEROquel) 12.5 mg Q24H PO Last administered on 04/23/18 13:16; Start 04/14/18 at 13:00; Stop 04/23/18 at 17:15; Status DC Quetiapine Fumarate (SEROquel) 25 mg QHS PO Last administered on 04/25/18 19: 33; Start 04/13/18 at 22:30 Simvastatin (Zocor) 20 mg HS PO Last administered on 04/25/18 19:32; Start at 21:00 Mirtazapine (Remeron) 7.5 mg QHS PO Last administered on 04/21/18 20:14; Start 04/15/18 at 21:00; Stop 04/21/18 at 23:22; Status DC Aspirin (Children'S Aspirin) 162 mg DAILYWBKFT PO Last administered on 07:37; Start 04/18/18 at 08:00 Divalproex Sodium (Depakote Er) 750 mg HS PO Last administered on 04/22/18 19: 29; Start 04/20/18 at 21:00; Stop 04/23/18 at 17:15; Status DC Mirtazapine (Remeron) 15 mg QHS PO Last administered on 04/25/18at 19:33; Start 04/22/18 at 21:00 Quetiapine Fumarate (SEROquel) 12.5 mg DAILYWSUP PO Last administered on at 16:45; Start 04/23/18 at 17:00 Divalproex Sodium (Depakote Er) 1,000 mg HS PO Last administered on 04/25/18at 19:32; Start 04/23/18 at 21:00 Quetiapine Fumarate (SEROquel) 25 mg Q24H PO Last administered on 04/25/18at 13: 15; Start 04/24/18 at 13:00 Hydroxyzine HCl (Atarax) 25 mg PRN Q2HR PRN PO ANXIETY / AGITATION Last administered on 04/24/18 17:05; Start 04/23/18 at 17:15 Active Scripts Active Reported Tylenol (Acetaminophen) 325 Mg Tablet 650 Mg PO TID Tussin Cough (Dextromethorphan Hbr) 15 Mg/5 Ml Liquid 15 Mg PO PRN Q4HRS PRN Flomax (Tamsulosin Hcl) 0.4 Mg Cap.er.24h 0.4 Mg PO QHS Simvastatin 20 Mg Tablet 20 Mg PO HS Seroquel (Quetiapine Fumarate) 25 Mg Tablet 25 Mg PO QHS Seroquel (Quetiapine Fumarate) 25 Mg Tablet 12.5 Mg PO DAILY Seroquel (Quetiapine Fumarate) 25 Mg Tablet 12.5 Mg PO DAILY@1300 Miralax (Polyethylene Glycol 3350) 17 Gm Powd.pack 17 Gm PO PRN DAILY PRN Depakote Er (Divalproex Sodium) 250 Mg Tab.er.24h 250 Mg PO BID Cymbalta (Duloxetine Hcl) 30 Mg Capsule.dr 30 Mg PO BID Coreg (Carvedilol) 25 Mg Tablet 12.5 Mg PO DAILY Bisacodyl 10 Mg Supp.rect 10 Mg RC PRN DAILY PRN I have reviewed the current psychotropics carefully including drug interactions. Risk benefit ratio favors no change other than as noted in my dictated progress note. Diagnosis: Problems: (1) Anxiety disorder (2) Dementia in Alzheimer's disease with delusions (3) Dementia in Alzheimer's disease with depression (4) Dementia, vascular, with delusions (5) Dementia, vascular, with depression (6) Impulse control disorder BYRON ACEVES MD Apr 25, 2018 22:30
[2018-04-26 06:13] VITALS: BP 131/79
[2018-04-26] MEDS: ASPIRIN 81 MG TAB.CHEW PO SCH (07:30)
[2018-04-26] MEDS: DULoxetine HCL 30 MG CAPSULE.DR PO SCH ×2 (07:31→19:26)
[2018-04-26] MEDS: ACETAMINOPHEN 325 MG TABLET PO SCH ×3 (07:31→19:26)
[2018-04-26] MEDS: QUEtiapine 25 MG TABLET. PO SCH ×4 (07:31→19:27)
[2018-04-26] MEDS: CARVEDILOL 12.5 MG TABLET PO SCH ×2 (07:31→16:30)
[2018-04-26 07:57] LABS: BASO # 0.1 x10^3/uL (0.0-0.2); BASO % 1 % (0-3); EOS # 0.4 x10^3/uL (0.0-0.7); EOS % 7 % (0-3); HEMATOCRIT 44.6 % (39.0-53.0); HEMOGLOBIN 14.9 g/dL (13.0-17.5); LYMPH # 1.8 x10^3/uL (1.0-4.8); LYMPH % 29 % (24-48); MEAN CORPUSCULAR HEMOGLOBIN 33 pg (25-35); MEAN CORPUSCULAR HGB CONC 34 g/dL (31-37); MEAN CORPUSCULAR VOLUME 97 fL (79-100); MONO # 0.5 x10^3/uL (0.0-1.1); MONO % 9 % (0-9); NEUT # 3.3 x10^3uL (1.8-7.7); NEUT % 55 % (31-73); PLATELET COUNT 170 x10^3/uL (140-400); RED BLOOD COUNT 4.59 x10^6/uL (4.30-5.70); WHITE BLOOD COUNT 6.1 x10^3/uL (4.0-11.0)
[2018-04-26 08:25] LABS: ALBUMIN 3.2 g/dL (3.4-5.0); ALBUMIN/GLOBULIN RATIO 0.9 (1.0-1.7); ALK PHOS 66 U/L (46-116); ALT (SGPT) 10 U/L (16-63); ANION GAP 9 (6-14); AST (SGOT) 18 U/L (15-37); BLOOD UREA NITROGEN 14 mg/dL (8-26); BUN/CREATININE RATIO 20 (6-20); CALCIUM 8.2 mg/dL (8.5-10.1); CARBON DIOXIDE 27 mmol/L (21-32); CHLORIDE 108 mmol/L (98-107); CREATININE 0.7 mg/dL (0.7-1.3); GFR 110.2; GLUCOSE 112 mg/dL (70-99); POTASSIUM 3.9 mmol/L (3.5-5.1); SODIUM 144 mmol/L (136-145); TOTAL BILIRUBIN 0.4 mg/dL (0.2-1.0); TOTAL PROTEIN 6.7 g/dL (6.4-8.2)
[2018-04-26 08:30] LABS: VAL ACID 67 mcg/mL (50-100)
[2018-04-26 15:52] VITALS: BP 135/73
[2018-04-26] MEDS: DIVALPROEX ER 500 MG TAB.ER.24H PO SCH (19:26)
[2018-04-26] MEDS: TAMSULOSIN 0.4 MG CAP.ER.24H. PO SCH (19:26)
[2018-04-26] MEDS: SIMVASTATIN 20 MG TABLET PO SCH (19:26)
[2018-04-26] MEDS: MIRTAZAPINE 7.5 MG TABLET. PO SCH (19:27)
--- NOTE | 2018-04-26 21:53 | PDOC ---
Exam Note: Gavin Note: Please also refer to the separate dictated note~for this date of service dictated separately.~Patient seen individually. Discussed the patient with Nursing staff reviewed the chart.~Reviewed interim history and current functioning. Reviewed vital signs,~Labs/ Radiology~and current medications noted below. Continue current treatment with the changes noted in the dictated addendum note Assessment: Vital Signs: Vital Signs Date Time Temp Pulse Resp B/P (MAP) Pulse Ox O2 Delivery O2 Flow Rate FiO2 04/26/18 16:30 63 135/73 04/26/18 15:52 97.1 16 98 Room Air I&O Intake and Output 04/26/18 06:59 Intake Total 720 ml Balance 720 ml Intake Oral 720 ml # Voids 1 Labs: Laboratory Tests Test 04/26/18 07:37 White Blood Count 6.1 x10^3/uL (4.0-11.0) Red Blood Count 4.59 x10^6/uL (4.30-5.70) Hemoglobin 14.9 g/dL (13.0-17.5) Hematocrit 44.6 % (39.0-53.0) Mean Corpuscular Volume 97 fL (79-100) Mean Corpuscular Hemoglobin 33 pg (25-35) Mean Corpuscular Hemoglobin Concent 34 g/dL (31-37) Red Cell Distribution Width 13.0 % (11.5-14.5) Platelet Count 170 x10^3/uL (140-400) Neutrophils (%) (Auto) 55 % (31-73) Lymphocytes (%) (Auto) 29 % (24-48) Monocytes (%) (Auto) 9 % (0-9) Eosinophils (%) (Auto) 7 % (0-3) H Basophils (%) (Auto) 1 % (0-3) Neutrophils # (Auto) 3.3 x10^3uL (1.8-7.7) Lymphocytes # (Auto) 1.8 x10^3/uL (1.0-4.8) Monocytes # (Auto) 0.5 x10^3/uL (0.0-1.1) Eosinophils # (Auto) 0.4 x10^3/uL (0.0-0.7) Basophils # (Auto) 0.1 x10^3/uL (0.0-0.2) Sodium Level 144 mmol/L (136-145) Potassium Level 3.9 mmol/L (3.5-5.1) Chloride Level 108 mmol/L (98-107) H Carbon Dioxide Level 27 mmol/L (21-32) Anion Gap 9 (6-14) Blood Urea Nitrogen 14 mg/dL (8-26) Creatinine 0.7 mg/dL (0.7-1.3) Estimated GFR (Cockcroft-Gault) 110.2 BUN/Creatinine Ratio 20 (6-20) Glucose Level 112 mg/dL (70-99) H Calcium Level 8.2 mg/dL (8.5-10.1) L Total Bilirubin 0.4 mg/dL (0.2-1.0) Aspartate Amino Transferase (AST) 18 U/L (15-37) Alanine Aminotransferase (ALT) 10 U/L (16-63) L Alkaline Phosphatase 66 U/L (46-116) Total Protein 6.7 g/dL (6.4-8.2) Albumin 3.2 g/dL (3.4-5.0) L Albumin/Globulin Ratio 0.9 (1.0-1.7) L Valproic Acid Level 67 mcg/mL (50-100) Valproic Acid Last Dose Date 04/25/2018 Valproic Acid Last Dose Time 2100 Current Medications: Meds: Current Medications Acetaminophen (Tylenol) 650 mg PRN Q4HRS PRN PO FEVER; Start 04/13/18 at 19:00 ; Stop 04/14/18 at 18:59; Status Cancel Acetaminophen (Tylenol) 650 mg PRN Q6HRS PRN PO PAIN / TEMP; Start 04/13/18 at 21:15 Multi-Ingredient Ointment (Analgesic [place]) 1 nicole PRN QID PRN TP MUSCLE PAIN; Start 04/13/18 at 21:15 Al Hydroxide/Mg Hydroxide (Mylanta Plus Xs) 15 ml PRN AFTMEALHC PRN PO DYSPEPSIA; Start 04/13/18 at 21:15 Magnesium Hydroxide (Milk Of Magnesia) 2,400 mg PRN QHS PRN PO CONSTIPATION Last administered on 04/21/18at 23:21; Start 04/13/18 at 21:15 Olanzapine (ZyPREXA ZYDIS) 2.5 mg PRN Q2HR PRN PO PSYCHOSIS Last administered on 04/23/18 15:57; Start 04/13/18 at 22:15 Acetaminophen (Tylenol) 650 mg TID PO Last administered on 04/26/18 19:26; Start 04/14/18 at 09:00 Tamsulosin HCl (Flomax) 0.4 mg QHS PO Last administered on 04/26/18 19:26; Start 04/14/18 at 21:00 Bisacodyl (Dulcolax Supp) 10 mg PRN DAILY PRN [place] CONSTIPATION Last administered on 04/23/18 15:57; Start 04/13/18 at 22:30 Carvedilol (Coreg) 12.5 mg BIDWMEALS PO Last administered on 04/26/18 16:30; Start 04/14/18 at 08:00 Guaifenesin (Robitussin Dm) 10 ml PRN Q4HRS PRN PO COUGH; Start 04/13/18 at 22: 30 Divalproex Sodium (Depakote Er) 250 mg BID PO Last administered on 04/19/18 08 :30; Start 04/14/18 at 09:00; Stop 04/19/18 at 17:06; Status DC Duloxetine HCl (Cymbalta) 30 mg BID PO Last administered on 04/26/18 19:26; Start 04/14/18 at 09:00 Polyethylene Glycol (miraLAX) 17 gm PRN DAILY PRN PO CONSTIPATION; Start at 09:00 Quetiapine Fumarate (SEROquel) 12.5 mg DAILY PO Last administered on 04/26/18 07:31; Start 04/14/18 at 09:00 Quetiapine Fumarate (SEROquel) 12.5 mg Q24H PO Last administered on 04/23/18 13:16; Start 04/14/18 at 13:00; Stop 04/23/18 at 17:15; Status DC Quetiapine Fumarate (SEROquel) 25 mg QHS PO Last administered on 04/26/18 19:27 ; Start 04/13/18 at 22:30 Simvastatin (Zocor) 20 mg HS PO Last administered on 04/26/18 19:26; Start at 21:00 Mirtazapine (Remeron) 7.5 mg QHS PO Last administered on 04/21/18 20:14; Start 04/15/18 at 21:00; Stop 04/21/18 at 23:22; Status DC Aspirin (Children'S Aspirin) 162 mg DAILYWBKFT PO Last administered on 07:30; Start 04/18/18 at 08:00 Divalproex Sodium (Depakote Er) 750 mg HS PO Last administered on 04/22/18 19: 29; Start 04/20/18 at 21:00; Stop 04/23/18 at 17:15; Status DC Mirtazapine (Remeron) 15 mg QHS PO Last administered on 04/26/18 19:27; Start 04/22/18 at 21:00 Quetiapine Fumarate (SEROquel) 12.5 mg DAILYWSUP PO Last administered on 16:32; Start 04/23/18 at 17:00 Divalproex Sodium (Depakote Er) 1,000 mg HS PO Last administered on 04/26/18 19 :26; Start 04/23/18 at 21:00 Quetiapine Fumarate (SEROquel) 25 mg Q24H PO Last administered on 04/26/18 13: 00; Start 04/24/18 at 13:00 Hydroxyzine HCl (Atarax) 25 mg PRN Q2HR PRN PO ANXIETY / AGITATION Last administered on 04/24/18 17:05; Start 04/23/18 at 17:15 Active Scripts Active Reported Tylenol (Acetaminophen) 325 Mg Tablet 650 Mg PO TID Tussin Cough (Dextromethorphan Hbr) 15 Mg/5 Ml Liquid 15 Mg PO PRN Q4HRS PRN Flomax (Tamsulosin Hcl) 0.4 Mg Cap.er.24h 0.4 Mg PO QHS Simvastatin 20 Mg Tablet 20 Mg PO HS Seroquel (Quetiapine Fumarate) 25 Mg Tablet 25 Mg PO QHS Seroquel (Quetiapine Fumarate) 25 Mg Tablet 12.5 Mg PO DAILY Seroquel (Quetiapine Fumarate) 25 Mg Tablet 12.5 Mg PO DAILY@1300 Miralax (Polyethylene Glycol 3350) 17 Gm Powd.pack 17 Gm PO PRN DAILY PRN Depakote Er (Divalproex Sodium) 250 Mg Tab.er.24h 250 Mg PO BID Cymbalta (Duloxetine Hcl) 30 Mg Capsule.dr 30 Mg PO BID Coreg (Carvedilol) 25 Mg Tablet 12.5 Mg PO DAILY Bisacodyl 10 Mg Supp.rect 10 Mg RC PRN DAILY PRN I have reviewed the current psychotropics carefully including drug interactions. Risk benefit ratio favors no change other than as noted in my dictated progress note. Diagnosis: Problems: (1) Anxiety disorder (2) Dementia in Alzheimer's disease with delusions (3) Dementia in Alzheimer's disease with depression (4) Dementia, vascular, with delusions (5) Dementia, vascular, with depression (6) Impulse control disorder BYRON ACEVES MD Apr 26, 2018 21:53
--- NOTE | 2018-04-26 23:07 | PN ---
DATE: 04/25/2018 PSYCHIATRIC PROGRESS NOTE This late entry 04/25/2018 covers elements not covered in my initial note. SUBJECTIVE: I met with the patient in the evening and was staffed with treatment team meeting earlier in the day. The patient slept 6 hours. Appetite is 90%. He is more awake, less agitated. REVIEW OF SYSTEMS: Ambulation impaired. No CV, , pulmonary, eye, ENT system symptoms on review. Reliability is poor. MENTAL STATUS EXAM: Oriented to himself. Insight, judgment, recent and remote memory, attention, concentration, fund of knowledge is poor, consistent with his diagnoses mentioned in my initial note. PLAN: No change from initial note. BYRON ACEVES MD DR: DANN/brittni JOB#: [id number] / [id number]
--- NOTE | 2018-04-26 23:53 | PN ---
DATE: 04/24/2018 PSYCHIATRIC PROGRESS NOTE This late entry for 04/24/2018 covers elements not covered in my initial note. SUBJECTIVE: I met with the patient in the evening. The patient slept 5 hours previous night. Remains confused. Seroquel was increased to 25 mg at 1300 and this seems to be helping. REVIEW OF SYSTEMS: No CV, , pulmonary, eye, ENT system symptoms on review. Reliability poor. Gait unsteady. MENTAL STATUS EXAM: Oriented to himself. Insight, judgment, recent and remote memory, attention, concentration, fund of knowledge poor, consistent with his diagnosis mentioned in my initial note. PLAN: No change from initial note. MAN Roxana ACEVES MD DR: DANN/brittni JOB#: [id number] / [id number]
[2018-04-27 05:33] VITALS: BP 143/98
[2018-04-27] MEDS: DULoxetine HCL 30 MG CAPSULE.DR PO SCH ×2 (08:48→19:21)
[2018-04-27] MEDS: ASPIRIN 81 MG TAB.CHEW PO SCH (08:48)
[2018-04-27] MEDS: CARVEDILOL 12.5 MG TABLET PO SCH ×2 (08:49→17:10)
[2018-04-27] MEDS: QUEtiapine 25 MG TABLET. PO SCH ×4 (08:49→19:21)
[2018-04-27] MEDS: ACETAMINOPHEN 325 MG TABLET PO SCH ×3 (08:49→19:24)
[2018-04-27 15:35] VITALS: BP 128/83
[2018-04-27] MEDS: TAMSULOSIN 0.4 MG CAP.ER.24H. PO SCH (19:21)
[2018-04-27] MEDS: SIMVASTATIN 20 MG TABLET PO SCH (19:21)
[2018-04-27] MEDS: DIVALPROEX ER 500 MG TAB.ER.24H PO SCH (19:23)
[2018-04-27] MEDS: MIRTAZAPINE 7.5 MG TABLET. PO SCH (19:24)
--- NOTE | 2018-04-27 21:55 | PDOC ---
Exam Note: Gavin Note: Please also refer to the separate dictated note~for this date of service dictated separately.~Patient seen individually. Discussed the patient with Nursing staff reviewed the chart.~Reviewed interim history and current functioning. Reviewed vital signs,~Labs/ Radiology~and current medications noted below. Continue current treatment with the changes noted in the dictated addendum note Assessment: Vital Signs: Vital Signs Date Time Temp Pulse Resp B/P (MAP) Pulse Ox O2 Delivery O2 Flow Rate FiO2 04/27/18 17:10 68 128/83 04/27/18 15:35 97.9 18 96 04/26/18 15:52 Room Air I&O Intake and Output 04/27/18 06:59 Intake Total 960 ml Balance 960 ml Intake Oral 960 ml # Bowel Movements 1 Current Medications: Meds: Current Medications Acetaminophen (Tylenol) 650 mg PRN Q4HRS PRN PO FEVER; Start 04/13/18 at 19:00 ; Stop 04/14/18 at 18:59; Status Cancel Acetaminophen (Tylenol) 650 mg PRN Q6HRS PRN PO PAIN / TEMP; Start 04/13/18 at 21:15 Multi-Ingredient Ointment (Analgesic [place]) 1 nicole PRN QID PRN TP MUSCLE PAIN; Start 04/13/18 at 21:15 Al Hydroxide/Mg Hydroxide (Mylanta Plus Xs) 15 ml PRN AFTMEALHC PRN PO DYSPEPSIA; Start 04/13/18 at 21:15 Magnesium Hydroxide (Milk Of Magnesia) 2,400 mg PRN QHS PRN PO CONSTIPATION Last administered on 04/21/18at 23:21; Start 04/13/18 at 21:15 Olanzapine (ZyPREXA ZYDIS) 2.5 mg PRN Q2HR PRN PO PSYCHOSIS Last administered on 04/23/18at 15:57; Start 04/13/18 at 22:15 Acetaminophen (Tylenol) 650 mg TID PO Last administered on 04/27/18 19:24; Start 04/14/18 at 09:00 Tamsulosin HCl (Flomax) 0.4 mg QHS PO Last administered on 04/27/18 19:21; Start 04/14/18 at 21:00 Bisacodyl (Dulcolax Supp) 10 mg PRN DAILY PRN [place] CONSTIPATION Last administered on 04/23/18 15:57; Start 04/13/18 at 22:30 Carvedilol (Coreg) 12.5 mg BIDWMEALS PO Last administered on 04/27/18 17:10; Start 04/14/18 at 08:00 Guaifenesin (Robitussin Dm) 10 ml PRN Q4HRS PRN PO COUGH; Start 04/13/18 at 22: 30 Divalproex Sodium (Depakote Er) 250 mg BID PO Last administered on 04/19/18 08 :30; Start 04/14/18 at 09:00; Stop 04/19/18 at 17:06; Status DC Duloxetine HCl (Cymbalta) 30 mg BID PO Last administered on 04/27/18 19:21; Start 04/14/18 at 09:00 Polyethylene Glycol (miraLAX) 17 gm PRN DAILY PRN PO CONSTIPATION; Start at 09:00 Quetiapine Fumarate (SEROquel) 12.5 mg DAILY PO Last administered on 04/27/18 08:49; Start 04/14/18 at 09:00 Quetiapine Fumarate (SEROquel) 12.5 mg Q24H PO Last administered on 04/23/18 13:16; Start 04/14/18 at 13:00; Stop 04/23/18 at 17:15; Status DC Quetiapine Fumarate (SEROquel) 25 mg QHS PO Last administered on 04/27/18 19:21 ; Start 04/13/18 at 22:30 Simvastatin (Zocor) 20 mg HS PO Last administered on 04/27/18 19:21; Start at 21:00 Mirtazapine (Remeron) 7.5 mg QHS PO Last administered on 04/21/18 20:14; Start 04/15/18 at 21:00; Stop 04/21/18 at 23:22; Status DC Aspirin (Children'S Aspirin) 162 mg DAILYWBKFT PO Last administered on 08:48; Start 04/18/18 at 08:00 Divalproex Sodium (Depakote Er) 750 mg HS PO Last administered on 04/22/18 19: 29; Start 04/20/18 at 21:00; Stop 04/23/18 at 17:15; Status DC Mirtazapine (Remeron) 15 mg QHS PO Last administered on 04/27/18at 19:24; Start 04/22/18 at 21:00 Quetiapine Fumarate (SEROquel) 12.5 mg DAILYWSUP PO Last administered on at 17:11; Start 04/23/18 at 17:00; Stop 04/27/18 at 20:15; Status DC Divalproex Sodium (Depakote Er) 1,000 mg HS PO Last administered on 04/27/18at 19 :23; Start 04/23/18 at 21:00 Quetiapine Fumarate (SEROquel) 25 mg Q24H PO Last administered on 04/27/18at 13: 16; Start 04/24/18 at 13:00 Hydroxyzine HCl (Atarax) 25 mg PRN Q2HR PRN PO ANXIETY / AGITATION Last administered on 04/24/18 17:05; Start 04/23/18 at 17:15 Quetiapine Fumarate (SEROquel) 37.5 mg DAILYWSUP PO ; Start 04/28/18 at 17:00 Active Scripts Active Reported Tylenol (Acetaminophen) 325 Mg Tablet 650 Mg PO TID Tussin Cough (Dextromethorphan Hbr) 15 Mg/5 Ml Liquid 15 Mg PO PRN Q4HRS PRN Flomax (Tamsulosin Hcl) 0.4 Mg Cap.er.24h 0.4 Mg PO QHS Simvastatin 20 Mg Tablet 20 Mg PO HS Seroquel (Quetiapine Fumarate) 25 Mg Tablet 25 Mg PO QHS Seroquel (Quetiapine Fumarate) 25 Mg Tablet 12.5 Mg PO DAILY Seroquel (Quetiapine Fumarate) 25 Mg Tablet 12.5 Mg PO DAILY@1300 Miralax (Polyethylene Glycol 3350) 17 Gm Powd.pack 17 Gm PO PRN DAILY PRN Depakote Er (Divalproex Sodium) 250 Mg Tab.er.24h 250 Mg PO BID Cymbalta (Duloxetine Hcl) 30 Mg Capsule.dr 30 Mg PO BID Coreg (Carvedilol) 25 Mg Tablet 12.5 Mg PO DAILY Bisacodyl 10 Mg Supp.rect 10 Mg RC PRN DAILY PRN I have reviewed the current psychotropics carefully including drug interactions. Risk benefit ratio favors no change other than as noted in my dictated progress note. Diagnosis: Problems: (1) Anxiety disorder (2) Dementia in Alzheimer's disease with delusions (3) Dementia in Alzheimer's disease with depression (4) Dementia, vascular, with delusions (5) Dementia, vascular, with depression (6) Impulse control disorder BYRON ACEVES MD Apr 27, 2018 21:55
[2018-04-28 05:56] VITALS: BP 105/58
[2018-04-28] MEDS: ASPIRIN 81 MG TAB.CHEW PO SCH (07:57)
[2018-04-28 08:03] VITALS: BP 114/73
[2018-04-28] MEDS: CARVEDILOL 12.5 MG TABLET PO SCH ×2 (08:03→17:04)
[2018-04-28] MEDS: QUEtiapine 25 MG TABLET. PO SCH ×4 (08:04→19:39)
[2018-04-28] MEDS: ACETAMINOPHEN 325 MG TABLET PO SCH ×3 (08:04→19:39)
[2018-04-28] MEDS: DULoxetine HCL 30 MG CAPSULE.DR PO SCH ×2 (08:04→19:39)
[2018-04-28 16:09] VITALS: BP 135/83
[2018-04-28] MEDS: hydrOXYzine HCL 25 MG TABLET PO PRN (17:04)
[2018-04-28] MEDS: TAMSULOSIN 0.4 MG CAP.ER.24H. PO SCH (19:39)
[2018-04-28] MEDS: SIMVASTATIN 20 MG TABLET PO SCH (19:39)
[2018-04-28] MEDS: MIRTAZAPINE 7.5 MG TABLET. PO SCH (19:39)
[2018-04-28] MEDS: DIVALPROEX ER 500 MG TAB.ER.24H PO SCH (19:40)
--- NOTE | 2018-04-28 22:42 | PDOC ---
Exam Note: Gavin Note: Please also refer to the separate dictated note~for this date of service dictated separately.~Patient seen individually. Discussed the patient with Nursing staff reviewed the chart.~Reviewed interim history and current functioning. Reviewed vital signs,~Labs/ Radiology~and current medications noted below. Continue current treatment with the changes noted in the dictated addendum note Assessment: Vital Signs: Vital Signs Date Time Temp Pulse Resp B/P (MAP) Pulse Ox O2 Delivery O2 Flow Rate FiO2 04/28/18 17:04 72 135/83 04/28/18 16:09 97.5 16 96 04/26/18 15:52 Room Air I&O Intake and Output 04/28/18 07:00 Intake Total 1205 ml Balance 1205 ml Intake Oral 1205 ml # Voids 1 Current Medications: Meds: Current Medications Acetaminophen (Tylenol) 650 mg PRN Q4HRS PRN PO FEVER; Start 04/13/18 at 19:00 ; Stop 04/14/18 at 18:59; Status Cancel Acetaminophen (Tylenol) 650 mg PRN Q6HRS PRN PO PAIN / TEMP; Start 04/13/18 at 21:15 Multi-Ingredient Ointment (Analgesic [place]) 1 nicole PRN QID PRN TP MUSCLE PAIN; Start 04/13/18 at 21:15 Al Hydroxide/Mg Hydroxide (Mylanta Plus Xs) 15 ml PRN AFTMEALHC PRN PO DYSPEPSIA; Start 04/13/18 at 21:15 Magnesium Hydroxide (Milk Of Magnesia) 2,400 mg PRN QHS PRN PO CONSTIPATION Last administered on 04/21/18 23:21; Start 04/13/18 at 21:15 Olanzapine (ZyPREXA ZYDIS) 2.5 mg PRN Q2HR PRN PO PSYCHOSIS Last administered on 04/28/18 11:57; Start 04/13/18 at 22:15 Acetaminophen (Tylenol) 650 mg TID PO Last administered on 04/28/18 19:39; Start 04/14/18 at 09:00 Tamsulosin HCl (Flomax) 0.4 mg QHS PO Last administered on 04/28/18 19:39; Start 04/14/18 at 21:00 Bisacodyl (Dulcolax Supp) 10 mg PRN DAILY PRN [place] CONSTIPATION Last administered on 04/23/18 15:57; Start 04/13/18 at 22:30 Carvedilol (Coreg) 12.5 mg BIDWMEALS PO Last administered on 04/28/18 17:04; Start 04/14/18 at 08:00 Guaifenesin (Robitussin Dm) 10 ml PRN Q4HRS PRN PO COUGH; Start 04/13/18 at 22: 30 Divalproex Sodium (Depakote Er) 250 mg BID PO Last administered on 04/19/18 08 :30; Start 04/14/18 at 09:00; Stop 04/19/18 at 17:06; Status DC Duloxetine HCl (Cymbalta) 30 mg BID PO Last administered on 04/28/18 19:39; Start 04/14/18 at 09:00 Polyethylene Glycol (miraLAX) 17 gm PRN DAILY PRN PO CONSTIPATION; Start at 09:00 Quetiapine Fumarate (SEROquel) 12.5 mg DAILY PO Last administered on 04/28/18 08:04; Start 04/14/18 at 09:00 Quetiapine Fumarate (SEROquel) 12.5 mg Q24H PO Last administered on 04/23/18 13:16; Start 04/14/18 at 13:00; Stop 04/23/18 at 17:15; Status DC Quetiapine Fumarate (SEROquel) 25 mg QHS PO Last administered on 04/28/18 19:39 ; Start 04/13/18 at 22:30 Simvastatin (Zocor) 20 mg HS PO Last administered on 04/28/18 19:39; Start at 21:00 Mirtazapine (Remeron) 7.5 mg QHS PO Last administered on 04/21/18 20:14; Start 04/15/18 at 21:00; Stop 04/21/18 at 23:22; Status DC Aspirin (Children'S Aspirin) 162 mg DAILYWBKFT PO Last administered on 07:57; Start 04/18/18 at 08:00 Divalproex Sodium (Depakote Er) 750 mg HS PO Last administered on 04/22/18 19: 29; Start 04/20/18 at 21:00; Stop 04/23/18 at 17:15; Status DC Mirtazapine (Remeron) 15 mg QHS PO Last administered on 04/28/18 19:39; Start 04/22/18 at 21:00 Quetiapine Fumarate (SEROquel) 12.5 mg DAILYWSUP PO Last administered on 17:11; Start 04/23/18 at 17:00; Stop 04/27/18 at 20:15; Status DC Divalproex Sodium (Depakote Er) 1,000 mg HS PO Last administered on 04/28/18 19 :40; Start 04/23/18 at 21:00 Quetiapine Fumarate (SEROquel) 25 mg Q24H PO Last administered on 04/28/18 13: 42; Start 04/24/18 at 13:00 Hydroxyzine HCl (Atarax) 25 mg PRN Q2HR PRN PO ANXIETY / AGITATION Last administered on 04/28/18 17:04; Start 04/23/18 at 17:15 Quetiapine Fumarate (SEROquel) 37.5 mg DAILYWSUP PO Last administered on 17:06; Start 04/28/18 at 17:00 Active Scripts Active Reported Tylenol (Acetaminophen) 325 Mg Tablet 650 Mg PO TID Tussin Cough (Dextromethorphan Hbr) 15 Mg/5 Ml Liquid 15 Mg PO PRN Q4HRS PRN Flomax (Tamsulosin Hcl) 0.4 Mg Cap.er.24h 0.4 Mg PO QHS Simvastatin 20 Mg Tablet 20 Mg PO HS Seroquel (Quetiapine Fumarate) 25 Mg Tablet 25 Mg PO QHS Seroquel (Quetiapine Fumarate) 25 Mg Tablet 12.5 Mg PO DAILY Seroquel (Quetiapine Fumarate) 25 Mg Tablet 12.5 Mg PO DAILY@1300 Miralax (Polyethylene Glycol 3350) 17 Gm Powd.pack 17 Gm PO PRN DAILY PRN Depakote Er (Divalproex Sodium) 250 Mg Tab.er.24h 250 Mg PO BID Cymbalta (Duloxetine Hcl) 30 Mg Capsule.dr 30 Mg PO BID Coreg (Carvedilol) 25 Mg Tablet 12.5 Mg PO DAILY Bisacodyl 10 Mg Supp.rect 10 Mg RC PRN DAILY PRN I have reviewed the current psychotropics carefully including drug interactions. Risk benefit ratio favors no change other than as noted in my dictated progress note. Diagnosis: Problems: (1) Anxiety disorder (2) Dementia in Alzheimer's disease with delusions (3) Dementia in Alzheimer's disease with depression (4) Dementia, vascular, with delusions (5) Dementia, vascular, with depression (6) Impulse control disorder BYRON ACEVES MD Apr 28, 2018 22:42
--- NOTE | 2018-04-28 23:41 | PN ---
DATE: 04/26/2018 PSYCHIATRIC PROGRESS NOTE This late entry 04/26/2018 covers elements not covered in my initial note. SUBJECTIVE: I met with the patient in the evening. The patient slept 6 hours previous night. He remains confused, compliant with cares and medication. Valproic acid level 67. REVIEW OF SYSTEMS: Ambulation impaired, in wheelchair. No CV, , pulmonary, eye, ENT system symptoms on review. Reliability poor. MENTAL STATUS EXAM: Oriented to himself. Insight, judgment, recent and remote memory, attention, concentration, fund of knowledge poor, consistent with his diagnosis mentioned in my initial note. PLAN: No change from initial note. MAN Roxana ACEVES MD DR: DANN/brittni JOB#: [id number] / [id number]
[2018-04-29 05:35] LABS: AMORPHOUS SEDIMENT,UR PRESENT /HPF; BACTERIA,URINE 0 /HPF (0-FEW); BILIRUBIN,URINE NEG (NEG); CLARITY,URINE CLEAR; COLOR,URINE YELLOW; GLUCOSE,URINE NEG (NEG); NITRITE,URINE NEG (NEG); RBC,URINE OCC /HPF (0-2); SQUAMOUS EPITHELIAL CELL,UR OCC /LPF; UROBILINOGEN,URINE 1 mg/dL (0.2 mg/dL); WBC,URINE OCC /HPF (0-4)
[2018-04-29 05:47] VITALS: BP 132/86
[2018-04-29] MEDS: DULoxetine HCL 30 MG CAPSULE.DR PO SCH ×2 (07:55→19:20)
[2018-04-29] MEDS: ASPIRIN 81 MG TAB.CHEW PO SCH (07:55)
[2018-04-29] MEDS: CARVEDILOL 12.5 MG TABLET PO SCH ×2 (07:55→17:04)
[2018-04-29] MEDS: QUEtiapine 25 MG TABLET. PO SCH ×4 (07:56→19:21)
[2018-04-29] MEDS: ACETAMINOPHEN 325 MG TABLET PO SCH ×4 (07:56→19:21)
[2018-04-29 16:06] VITALS: BP 127/88
[2018-04-29] MEDS: SIMVASTATIN 20 MG TABLET PO SCH (19:20)
[2018-04-29] MEDS: TAMSULOSIN 0.4 MG CAP.ER.24H. PO SCH (19:20)
[2018-04-29] MEDS: MIRTAZAPINE 7.5 MG TABLET. PO SCH (19:21)
[2018-04-29] MEDS: DIVALPROEX ER 500 MG TAB.ER.24H PO SCH (19:22)
--- NOTE | 2018-04-29 22:38 | PDOC ---
Exam Note: Gavin Note: Please also refer to the separate dictated note~for this date of service dictated separately.~Patient seen individually. Discussed the patient with Nursing staff reviewed the chart.~Reviewed interim history and current functioning. Reviewed vital signs,~Labs/ Radiology~and current medications noted below. Continue current treatment with the changes noted in the dictated addendum note Assessment: Vital Signs: Vital Signs Date Time Temp Pulse Resp B/P (MAP) Pulse Ox O2 Delivery O2 Flow Rate FiO2 04/29/18 17:04 67 127/88 04/29/18 16:06 97.8 20 96 04/26/18 15:52 Room Air I&O Intake and Output 04/29/18 07:00 Intake Total 1440 ml Balance 1440 ml Intake Oral 1440 ml Labs: Laboratory Tests Test 04/29/18 05:10 Urine Collection Type U cath Urine Color Yellow Urine Clarity Clear Urine pH 8.0 Urine Specific [place] 1.015 Urine Protein Neg (NEG-TRACE) Urine Glucose (UA) Neg mg/dL (NEG) Urine Ketones (Stick) 15 mg/dL (NEG) Urine Blood Trace (NEG) Urine Nitrite Neg (NEG) Urine Bilirubin Neg (NEG) Urine Urobilinogen Dipstick 1 mg/dL (0.2 mg/dL) Urine Leukocyte Esterase Neg (NEG) Urine RBC Occ /HPF (0-2) Urine WBC Occ /HPF (0-4) Urine Squamous Epithelial Cells Occ /LPF Urine Amorphous Sediment Present /HPF Urine Bacteria 0 /HPF (0-FEW) Current Medications: Meds: Current Medications Acetaminophen (Tylenol) 650 mg PRN Q4HRS PRN PO FEVER; Start 04/13/18 at 19:00 ; Stop 04/14/18 at 18:59; Status Cancel Acetaminophen (Tylenol) 650 mg PRN Q6HRS PRN PO PAIN / TEMP; Start 04/13/18 at 21:15 Multi-Ingredient Ointment (Analgesic [place]) 1 nicole PRN QID PRN TP MUSCLE PAIN; Start 04/13/18 at 21:15 Al Hydroxide/Mg Hydroxide (Mylanta Plus Xs) 15 ml PRN AFTMEALHC PRN PO DYSPEPSIA; Start 04/13/18 at 21:15 Magnesium Hydroxide (Milk Of Magnesia) 2,400 mg PRN QHS PRN PO CONSTIPATION Last administered on 04/21/18at 23:21; Start 04/13/18 at 21:15 Olanzapine (ZyPREXA ZYDIS) 2.5 mg PRN Q2HR PRN PO PSYCHOSIS Last administered on 04/28/18 11:57; Start 04/13/18 at 22:15 Acetaminophen (Tylenol) 650 mg TID PO Last administered on 04/29/18 19:21; Start 04/14/18 at 09:00 Tamsulosin HCl (Flomax) 0.4 mg QHS PO Last administered on 04/29/18 19:20; Start 04/14/18 at 21:00 Bisacodyl (Dulcolax Supp) 10 mg PRN DAILY PRN [place] CONSTIPATION Last administered on 04/23/18 15:57; Start 04/13/18 at 22:30 Carvedilol (Coreg) 12.5 mg BIDWMEALS PO Last administered on 04/29/18 17:04; Start 04/14/18 at 08:00 Guaifenesin (Robitussin Dm) 10 ml PRN Q4HRS PRN PO COUGH; Start 04/13/18 at 22: 30 Divalproex Sodium (Depakote Er) 250 mg BID PO Last administered on 04/19/18 08 :30; Start 04/14/18 at 09:00; Stop 04/19/18 at 17:06; Status DC Duloxetine HCl (Cymbalta) 30 mg BID PO Last administered on 04/29/18 19:20; Start 04/14/18 at 09:00 Polyethylene Glycol (miraLAX) 17 gm PRN DAILY PRN PO CONSTIPATION; Start at 09:00 Quetiapine Fumarate (SEROquel) 12.5 mg DAILY PO Last administered on 04/29/18 07:56; Start 04/14/18 at 09:00 Quetiapine Fumarate (SEROquel) 12.5 mg Q24H PO Last administered on 04/23/18 13:16; Start 04/14/18 at 13:00; Stop 04/23/18 at 17:15; Status DC Quetiapine Fumarate (SEROquel) 25 mg QHS PO Last administered on 04/29/18 19:21 ; Start 04/13/18 at 22:30 Simvastatin (Zocor) 20 mg HS PO Last administered on 04/29/18 19:20; Start at 21:00 Mirtazapine (Remeron) 7.5 mg QHS PO Last administered on 04/21/18 20:14; Start 04/15/18 at 21:00; Stop 04/21/18 at 23:22; Status DC Aspirin (Children'S Aspirin) 162 mg DAILYWBKFT PO Last administered on 07:55; Start 04/18/18 at 08:00 Divalproex Sodium (Depakote Er) 750 mg HS PO Last administered on 04/22/18 19: 29; Start 04/20/18 at 21:00; Stop 04/23/18 at 17:15; Status DC Mirtazapine (Remeron) 15 mg QHS PO Last administered on 04/29/18 19:21; Start 04/22/18 at 21:00 Quetiapine Fumarate (SEROquel) 12.5 mg DAILYWSUP PO Last administered on 17:11; Start 04/23/18 at 17:00; Stop 04/27/18 at 20:15; Status DC Divalproex Sodium (Depakote Er) 1,000 mg HS PO Last administered on 04/29/18 19 :22; Start 04/23/18 at 21:00 Quetiapine Fumarate (SEROquel) 25 mg Q24H PO Last administered on 04/29/18 12: 09; Start 04/24/18 at 13:00 Hydroxyzine HCl (Atarax) 25 mg PRN Q2HR PRN PO ANXIETY / AGITATION Last administered on 04/28/18 17:04; Start 04/23/18 at 17:15 Quetiapine Fumarate (SEROquel) 37.5 mg DAILYWSUP PO Last administered on 17:04; Start 04/28/18 at 17:00 Active Scripts Active Reported Tylenol (Acetaminophen) 325 Mg Tablet 650 Mg PO TID Tussin Cough (Dextromethorphan Hbr) 15 Mg/5 Ml Liquid 15 Mg PO PRN Q4HRS PRN Flomax (Tamsulosin Hcl) 0.4 Mg Cap.er.24h 0.4 Mg PO QHS Simvastatin 20 Mg Tablet 20 Mg PO HS Seroquel (Quetiapine Fumarate) 25 Mg Tablet 25 Mg PO QHS Seroquel (Quetiapine Fumarate) 25 Mg Tablet 12.5 Mg PO DAILY Seroquel (Quetiapine Fumarate) 25 Mg Tablet 12.5 Mg PO DAILY@1300 Miralax (Polyethylene Glycol 3350) 17 Gm Powd.pack 17 Gm PO PRN DAILY PRN Depakote Er (Divalproex Sodium) 250 Mg Tab.er.24h 250 Mg PO BID Cymbalta (Duloxetine Hcl) 30 Mg Capsule.dr 30 Mg PO BID Coreg (Carvedilol) 25 Mg Tablet 12.5 Mg PO DAILY Bisacodyl 10 Mg Supp.rect 10 Mg RC PRN DAILY PRN I have reviewed the current psychotropics carefully including drug interactions. Risk benefit ratio favors no change other than as noted in my dictated progress note. Diagnosis: Problems: (1) Anxiety disorder (2) Dementia in Alzheimer's disease with delusions (3) Dementia in Alzheimer's disease with depression (4) Dementia, vascular, with delusions (5) Dementia, vascular, with depression (6) Impulse control disorder BYRON ACEVES MD Apr 29, 2018 22:38
--- NOTE | 2018-04-30 01:38 | PN ---
DATE: 04/28/2018 This late entry 04/28/2018 covers elements not covered in my initial note. SUBJECTIVE: I met with the patient in the evening. The patient slept 4-3/4 hours previous night. He remains confused, quite agitated, anxious, restless. He is in a Broda chair, received p.r.n. Zyprexa at noon along with Atarax. We will check UA to make sure UTI is not worsening his agitation. REVIEW OF SYSTEMS: No CV, , pulmonary, eye, ENT system symptoms on review. Reliability poor. MENTAL STATUS EXAM: Oriented to himself. Insight, judgment, recent and remote memory, attention, concentration, fund of knowledge poor consistent with his diagnosis mentioned in my initial note. PLAN: No change from initial note. MAN Roxana ACEVES MD DR: DANN/brittni JOB#: [id number] / [id number]
--- NOTE | 2018-04-30 01:40 | PN ---
DATE: 04/27/2018 PSYCHIATRIC PROGRESS NOTE This late entry, 04/27/2018, covers elements not covered in my initial note. SUBJECTIVE: I met with the patient in the evening. The patient slept 7 hours previous night. He did well until dinner and then was combative, punching, scratching at staff. Zyprexa had to be syringed. REVIEW OF SYSTEMS: Ambulation impaired. No CV, , pulmonary, eye system symptoms on review. Reliability poor. MENTAL STATUS EXAM: Oriented to himself. Insight, judgment, recent and remote memory, attention, concentration, fund of knowledge poor, consistent with his diagnosis mentioned in my initial note. PLAN: Increase 1700-hour Seroquel from 12.5 mg to 37.5 mg. Rest unchanged for now. MAN Roxana ACEVES MD DR: DANN/brittni JOB#: [id number] / [id number]
[2018-04-30 05:53] VITALS: BP 120/71
[2018-04-30] MEDS: ASPIRIN 81 MG TAB.CHEW PO SCH (08:06)
[2018-04-30] MEDS: QUEtiapine 25 MG TABLET. PO SCH ×4 (08:07→20:07)
[2018-04-30] MEDS: DULoxetine HCL 30 MG CAPSULE.DR PO SCH ×2 (08:07→20:06)
[2018-04-30] MEDS: CARVEDILOL 12.5 MG TABLET PO SCH ×2 (08:07→17:24)
[2018-04-30] MEDS: ACETAMINOPHEN 325 MG TABLET PO SCH ×3 (08:08→20:06)
[2018-04-30] MEDS ORDERED: IBUPROFEN 400 MG TABLET. PO PRN (15:30)
[2018-04-30 16:24] VITALS: BP 124/84
[2018-04-30] MEDS: hydrOXYzine HCL 25 MG TABLET PO PRN (18:02)
[2018-04-30] MEDS: TAMSULOSIN 0.4 MG CAP.ER.24H. PO SCH (20:06)
[2018-04-30] MEDS: DIVALPROEX ER 500 MG TAB.ER.24H PO SCH (20:06)
[2018-04-30] MEDS: SIMVASTATIN 20 MG TABLET PO SCH (20:06)
[2018-04-30] MEDS: MIRTAZAPINE 7.5 MG TABLET. PO SCH (20:07)
--- NOTE | 2018-04-30 21:25 | PN ---
DATE: 04/29/2018 PSYCHIATRIC PROGRESS NOTE This late entry of 04/29/2018 covers elements not covered in my initial note. SUBJECTIVE: I met with the patient in the evening. The patient slept 7-1/2 hours previous night, somewhat restless at night, combative with cares at night. He has been walking to the dining room with staff assistance. UA is negative. REVIEW OF SYSTEMS: Ambulation impaired, in wheelchair. No CV, , pulmonary, eye, ENT system symptoms on review. Reliability poor. MENTAL STATUS EXAM: Oriented to herself. Insight, judgment, recent and remote memory, attention, concentration poor, consistent with his diagnosis. IMPRESSION: Major neurocognitive disorder, Alzheimer, vascular with delusion, depression, behavioral disturbance. Rest unchanged. PLAN: No change from initial note. MAN Roxana ACEVES MD DR: DANN/brittni JOB#: [id number] / [id number]
--- NOTE | 2018-04-30 22:08 | PDOC ---
Exam Note: Gavin Note: Please also refer to the separate dictated note~for this date of service dictated separately.~Patient seen individually. Discussed the patient with Nursing staff reviewed the chart.~Reviewed interim history and current functioning. Reviewed vital signs,~Labs/ Radiology~and current medications noted below. Continue current treatment with the changes noted in the dictated addendum note Assessment: Vital Signs: Vital Signs Date Time Temp Pulse Resp B/P (MAP) Pulse Ox O2 Delivery O2 Flow Rate FiO2 04/30/18 17:24 86 124/84 04/30/18 16:24 97.2 20 95 Room Air I&O Intake and Output 04/30/18 06:59 Intake Total 960 ml Balance 960 ml Intake Oral 960 ml Current Medications: Meds: Current Medications Acetaminophen (Tylenol) 650 mg PRN Q4HRS PRN PO FEVER; Start 04/13/18 at 19:00 ; Stop 04/14/18 at 18:59; Status Cancel Acetaminophen (Tylenol) 650 mg PRN Q6HRS PRN PO PAIN / TEMP; Start 04/13/18 at 21:15 Multi-Ingredient Ointment (Analgesic [place]) 1 nicole PRN QID PRN TP MUSCLE PAIN; Start 04/13/18 at 21:15 Al Hydroxide/Mg Hydroxide (Mylanta Plus Xs) 15 ml PRN AFTMEALHC PRN PO DYSPEPSIA; Start 04/13/18 at 21:15 Magnesium Hydroxide (Milk Of Magnesia) 2,400 mg PRN QHS PRN PO CONSTIPATION Last administered on 04/21/18at 23:21; Start 04/13/18 at 21:15 Olanzapine (ZyPREXA ZYDIS) 2.5 mg PRN Q2HR PRN PO PSYCHOSIS Last administered on 04/28/18at 11:57; Start 04/13/18 at 22:15 Acetaminophen (Tylenol) 650 mg TID PO Last administered on 04/30/18 20:06; Start 04/14/18 at 09:00 Tamsulosin HCl (Flomax) 0.4 mg QHS PO Last administered on 04/30/18 20:06; Start 04/14/18 at 21:00 Bisacodyl (Dulcolax Supp) 10 mg PRN DAILY PRN MS CONSTIPATION Last administered on 04/23/18at 15:57; Start 04/13/18 at 22:30 Carvedilol (Coreg) 12.5 mg BIDWMEALS PO Last administered on 04/30/18 17:24; Start 04/14/18 at 08:00 Guaifenesin (Robitussin Dm) 10 ml PRN Q4HRS PRN PO COUGH; Start 04/13/18 at 22: 30 Divalproex Sodium (Depakote Er) 250 mg BID PO Last administered on 04/19/18at 08 :30; Start 04/14/18 at 09:00; Stop 04/19/18 at 17:06; Status DC Duloxetine HCl (Cymbalta) 30 mg BID PO Last administered on 04/30/18 20:06; Start 04/14/18 at 09:00 Polyethylene Glycol (miraLAX) 17 gm PRN DAILY PRN PO CONSTIPATION; Start at 09:00 Quetiapine Fumarate (SEROquel) 12.5 mg DAILY PO Last administered on 04/30/18 08:07; Start 04/14/18 at 09:00 Quetiapine Fumarate (SEROquel) 12.5 mg Q24H PO Last administered on 04/23/18 13:16; Start 04/14/18 at 13:00; Stop 04/23/18 at 17:15; Status DC Quetiapine Fumarate (SEROquel) 25 mg QHS PO Last administered on 04/30/18 20:07 ; Start 04/13/18 at 22:30 Simvastatin (Zocor) 20 mg HS PO Last administered on 04/30/18 20:06; Start at 21:00 Mirtazapine (Remeron) 7.5 mg QHS PO Last administered on 04/21/18 20:14; Start 04/15/18 at 21:00; Stop 04/21/18 at 23:22; Status DC Aspirin (Children'S Aspirin) 162 mg DAILYWBKFT PO Last administered on 08:06; Start 04/18/18 at 08:00 Divalproex Sodium (Depakote Er) 750 mg HS PO Last administered on 04/22/18 19: 29; Start 04/20/18 at 21:00; Stop 04/23/18 at 17:15; Status DC Mirtazapine (Remeron) 15 mg QHS PO Last administered on 04/30/18 20:07; Start 04/22/18 at 21:00 Quetiapine Fumarate (SEROquel) 12.5 mg DAILYWSUP PO Last administered on 17:11; Start 04/23/18 at 17:00; Stop 04/27/18 at 20:15; Status DC Divalproex Sodium (Depakote Er) 1,000 mg HS PO Last administered on 04/30/18 20 :06; Start 04/23/18 at 21:00 Quetiapine Fumarate (SEROquel) 25 mg Q24H PO Last administered on 04/30/18 13: 14; Start 04/24/18 at 13:00 Hydroxyzine HCl (Atarax) 25 mg PRN Q2HR PRN PO ANXIETY / AGITATION Last administered on 04/28/18 17:04; Start 04/23/18 at 17:15 Quetiapine Fumarate (SEROquel) 37.5 mg DAILYWSUP PO Last administered on 17:25; Start 04/28/18 at 17:00 Ibuprofen (Motrin) 400 mg PRN Q8HRS PRN PO INFLAMMATION Last administered on 16:11; Start 04/30/18 at 15:30 Active Scripts Active Reported Tylenol (Acetaminophen) 325 Mg Tablet 650 Mg PO TID Tussin Cough (Dextromethorphan Hbr) 15 Mg/5 Ml Liquid 15 Mg PO PRN Q4HRS PRN Flomax (Tamsulosin Hcl) 0.4 Mg Cap.er.24h 0.4 Mg PO QHS Simvastatin 20 Mg Tablet 20 Mg PO HS Seroquel (Quetiapine Fumarate) 25 Mg Tablet 25 Mg PO QHS Seroquel (Quetiapine Fumarate) 25 Mg Tablet 12.5 Mg PO DAILY Seroquel (Quetiapine Fumarate) 25 Mg Tablet 12.5 Mg PO DAILY@1300 Miralax (Polyethylene Glycol 3350) 17 Gm Powd.pack 17 Gm PO PRN DAILY PRN Depakote Er (Divalproex Sodium) 250 Mg Tab.er.24h 250 Mg PO BID Cymbalta (Duloxetine Hcl) 30 Mg Capsule.dr 30 Mg PO BID Coreg (Carvedilol) 25 Mg Tablet 12.5 Mg PO DAILY Bisacodyl 10 Mg Supp.rect 10 Mg RC PRN DAILY PRN I have reviewed the current psychotropics carefully including drug interactions. Risk benefit ratio favors no change other than as noted in my dictated progress note. Diagnosis: Problems: (1) Anxiety disorder (2) Dementia in Alzheimer's disease with delusions (3) Dementia in Alzheimer's disease with depression (4) Dementia, vascular, with delusions (5) Dementia, vascular, with depression (6) Impulse control disorder BYRON ACEVES MD Apr 30, 2018 22:08
[2018-05-01 05:48] VITALS: BP 144/90
[2018-05-01] MEDS: ASPIRIN 81 MG TAB.CHEW PO SCH (08:09)
[2018-05-01] MEDS: CARVEDILOL 12.5 MG TABLET PO SCH ×2 (08:10→16:19)
[2018-05-01] MEDS: DULoxetine HCL 30 MG CAPSULE.DR PO SCH ×2 (08:10→19:42)
[2018-05-01] MEDS: QUEtiapine 25 MG TABLET. PO SCH ×4 (08:10→19:41)
[2018-05-01] MEDS: ACETAMINOPHEN 325 MG TABLET PO SCH ×3 (08:11→19:41)
[2018-05-01 16:19] VITALS: BP 121/85
[2018-05-01] MEDS: hydrOXYzine HCL 25 MG TABLET PO PRN (16:20)
[2018-05-01] MEDS: TAMSULOSIN 0.4 MG CAP.ER.24H. PO SCH (19:41)
[2018-05-01] MEDS: DIVALPROEX ER 500 MG TAB.ER.24H PO SCH (19:41)
[2018-05-01] MEDS: MIRTAZAPINE 7.5 MG TABLET. PO SCH (19:41)
[2018-05-01] MEDS: SIMVASTATIN 20 MG TABLET PO SCH (19:41)
[2018-05-01 20:40] LABS: BASO # 0.1 x10^3/uL (0.0-0.2); BASO % 1 % (0-3); EOS % 0 % (0-3); HEMATOCRIT 40.8 % (39.0-53.0); HEMOGLOBIN 13.6 g/dL (13.0-17.5); LYMPH # 0.9 x10^3/uL (1.0-4.8); LYMPH % 8 % (24-48); MEAN CORPUSCULAR HEMOGLOBIN 33 pg (25-35); MEAN CORPUSCULAR HGB CONC 33 g/dL (31-37); MEAN CORPUSCULAR VOLUME 99 fL (79-100); MONO % 8 % (0-9); NEUT # 9.7 x10^3uL (1.8-7.7); NEUT % 83 % (31-73); PLATELET COUNT 145 x10^3/uL (140-400); RED BLOOD COUNT 4.14 x10^6/uL (4.30-5.70); RED CELL DISTRIBUTION WIDTH 13.5 % (11.5-14.5); WHITE BLOOD COUNT 11.7 x10^3/uL (4.0-11.0)
[2018-05-01 20:51] LABS: ALBUMIN 3.3 g/dL (3.4-5.0); ALBUMIN/GLOBULIN RATIO 0.9 (1.0-1.7); CREATININE 0.9 mg/dL (0.7-1.3); GFR 82.5; POTASSIUM 3.8 mmol/L (3.5-5.1); TOTAL BILIRUBIN 0.7 mg/dL (0.2-1.0); TOTAL PROTEIN 6.9 g/dL (6.4-8.2)
--- NOTE | 2018-05-01 22:21 | PDOC ---
Exam Note: Gavin Note: Please also refer to the separate dictated note~for this date of service dictated separately.~Patient seen individually. Discussed the patient with Nursing staff reviewed the chart.~Reviewed interim history and current functioning. Reviewed vital signs,~Labs/ Radiology~and current medications noted below. Continue current treatment with the changes noted in the dictated addendum note Assessment: Vital Signs: Vital Signs Date Time Temp Pulse Resp B/P (MAP) Pulse Ox O2 Delivery O2 Flow Rate FiO2 05/01/18 16:19 99.2 74 18 121/85 (97) 96 04/30/18 16:24 Room Air I&O Intake and Output 05/01/18 06:59 Intake Total 1200 ml Balance 1200 ml Intake Oral 1200 ml Labs: Laboratory Tests Test 05/01/18 20:30 White Blood Count 11.7 x10^3/uL (4.0-11.0) #H Red Blood Count 4.14 x10^6/uL (4.30-5.70) L Hemoglobin 13.6 g/dL (13.0-17.5) Hematocrit 40.8 % (39.0-53.0) Mean Corpuscular Volume 99 fL (79-100) Mean Corpuscular Hemoglobin 33 pg (25-35) Mean Corpuscular Hemoglobin Concent 33 g/dL (31-37) Red Cell Distribution Width 13.5 % (11.5-14.5) Platelet Count 145 x10^3/uL (140-400) Neutrophils (%) (Auto) 83 % (31-73) H Lymphocytes (%) (Auto) 8 % (24-48) L Monocytes (%) (Auto) 8 % (0-9) Eosinophils (%) (Auto) 0 % (0-3) Basophils (%) (Auto) 1 % (0-3) Neutrophils # (Auto) 9.7 x10^3uL (1.8-7.7) H Lymphocytes # (Auto) 0.9 x10^3/uL (1.0-4.8) L Monocytes # (Auto) 1.0 x10^3/uL (0.0-1.1) Eosinophils # (Auto) 0.0 x10^3/uL (0.0-0.7) Basophils # (Auto) 0.1 x10^3/uL (0.0-0.2) Sodium Level 143 mmol/L (136-145) Potassium Level 3.8 mmol/L (3.5-5.1) Chloride Level 106 mmol/L (98-107) Carbon Dioxide Level 28 mmol/L (21-32) Anion Gap 9 (6-14) Blood Urea Nitrogen 30 mg/dL (8-26) H Creatinine 0.9 mg/dL (0.7-1.3) Estimated GFR (Cockcroft-Gault) 82.5 BUN/Creatinine Ratio 33 (6-20) H Glucose Level 145 mg/dL (70-99) H Calcium Level 9.0 mg/dL (8.5-10.1) Total Bilirubin 0.7 mg/dL (0.2-1.0) Aspartate Amino Transferase (AST) 17 U/L (15-37) Alanine Aminotransferase (ALT) 8 U/L (16-63) L Alkaline Phosphatase 69 U/L (46-116) Total Protein 6.9 g/dL (6.4-8.2) Albumin 3.3 g/dL (3.4-5.0) L Albumin/Globulin Ratio 0.9 (1.0-1.7) L Current Medications: Meds: Current Medications Acetaminophen (Tylenol) 650 mg PRN Q4HRS PRN PO FEVER; Start 04/13/18 at 19:00 ; Stop 04/14/18 at 18:59; Status Cancel Acetaminophen (Tylenol) 650 mg PRN Q6HRS PRN PO PAIN / TEMP; Start 04/13/18 at 21:15 Multi-Ingredient Ointment (Analgesic [place]) 1 nicole PRN QID PRN TP MUSCLE PAIN; Start 04/13/18 at 21:15 Al Hydroxide/Mg Hydroxide (Mylanta Plus Xs) 15 ml PRN AFTMEALHC PRN PO DYSPEPSIA; Start 04/13/18 at 21:15 Magnesium Hydroxide (Milk Of Magnesia) 2,400 mg PRN QHS PRN PO CONSTIPATION Last administered on 04/21/18at 23:21; Start 04/13/18 at 21:15 Olanzapine (ZyPREXA ZYDIS) 2.5 mg PRN Q2HR PRN PO PSYCHOSIS Last administered on 04/28/18at 11:57; Start 04/13/18 at 22:15 Acetaminophen (Tylenol) 650 mg TID PO Last administered on 05/01/18 19:41; Start 04/14/18 at 09:00 Tamsulosin HCl (Flomax) 0.4 mg QHS PO Last administered on 05/01/18 19:41; Start 04/14/18 at 21:00 Bisacodyl (Dulcolax Supp) 10 mg PRN DAILY PRN [place] CONSTIPATION Last administered on 04/23/18 15:57; Start 04/13/18 at 22:30 Carvedilol (Coreg) 12.5 mg BIDWMEALS PO Last administered on 05/01/18 16:19; Start 04/14/18 at 08:00 Guaifenesin (Robitussin Dm) 10 ml PRN Q4HRS PRN PO COUGH; Start 04/13/18 at 22: 30 Divalproex Sodium (Depakote Er) 250 mg BID PO Last administered on 04/19/18 08 :30; Start 04/14/18 at 09:00; Stop 04/19/18 at 17:06; Status DC Duloxetine HCl (Cymbalta) 30 mg BID PO Last administered on 05/01/18 19:42; Start 04/14/18 at 09:00 Polyethylene Glycol (miraLAX) 17 gm PRN DAILY PRN PO CONSTIPATION; Start at 09:00 Quetiapine Fumarate (SEROquel) 12.5 mg DAILY PO Last administered on 05/01/18 08:10; Start 04/14/18 at 09:00 Quetiapine Fumarate (SEROquel) 12.5 mg Q24H PO Last administered on 04/23/18 13:16; Start 04/14/18 at 13:00; Stop 04/23/18 at 17:15; Status DC Quetiapine Fumarate (SEROquel) 25 mg QHS PO Last administered on 05/01/18 19:41 ; Start 04/13/18 at 22:30 Simvastatin (Zocor) 20 mg HS PO Last administered on 05/01/18 19:41; Start at 21:00 Mirtazapine (Remeron) 7.5 mg QHS PO Last administered on 04/21/18 20:14; Start 04/15/18 at 21:00; Stop 04/21/18 at 23:22; Status DC Aspirin (Children'S Aspirin) 162 mg DAILYWBKFT PO Last administered on 08:09; Start 04/18/18 at 08:00 Divalproex Sodium (Depakote Er) 750 mg HS PO Last administered on 04/22/18 19: 29; Start 04/20/18 at 21:00; Stop 04/23/18 at 17:15; Status DC Mirtazapine (Remeron) 15 mg QHS PO Last administered on 05/01/18 19:41; Start 04/22/18 at 21:00 Quetiapine Fumarate (SEROquel) 12.5 mg DAILYWSUP PO Last administered on 17:11; Start 04/23/18 at 17:00; Stop 04/27/18 at 20:15; Status DC Divalproex Sodium (Depakote Er) 1,000 mg HS PO Last administered on 05/01/18 19 :41; Start 04/23/18 at 21:00 Quetiapine Fumarate (SEROquel) 25 mg Q24H PO Last administered on 05/01/18 12: 50; Start 04/24/18 at 13:00 Hydroxyzine HCl (Atarax) 25 mg PRN Q2HR PRN PO ANXIETY / AGITATION Last administered on 05/01/18 16:20; Start 04/23/18 at 17:15 Quetiapine Fumarate (SEROquel) 37.5 mg DAILYWSUP PO Last administered on 16:20; Start 04/28/18 at 17:00 Ibuprofen (Motrin) 400 mg PRN Q8HRS PRN PO INFLAMMATION Last administered on 16:11; Start 04/30/18 at 15:30 Active Scripts Active Reported Tylenol (Acetaminophen) 325 Mg Tablet 650 Mg PO TID Tussin Cough (Dextromethorphan Hbr) 15 Mg/5 Ml Liquid 15 Mg PO PRN Q4HRS PRN Flomax (Tamsulosin Hcl) 0.4 Mg Cap.er.24h 0.4 Mg PO QHS Simvastatin 20 Mg Tablet 20 Mg PO HS Seroquel (Quetiapine Fumarate) 25 Mg Tablet 25 Mg PO QHS Seroquel (Quetiapine Fumarate) 25 Mg Tablet 12.5 Mg PO DAILY Seroquel (Quetiapine Fumarate) 25 Mg Tablet 12.5 Mg PO DAILY@1300 Miralax (Polyethylene Glycol 3350) 17 Gm Powd.pack 17 Gm PO PRN DAILY PRN Depakote Er (Divalproex Sodium) 250 Mg Tab.er.24h 250 Mg PO BID Cymbalta (Duloxetine Hcl) 30 Mg Capsule.dr 30 Mg PO BID Coreg (Carvedilol) 25 Mg Tablet 12.5 Mg PO DAILY Bisacodyl 10 Mg Supp.rect 10 Mg RC PRN DAILY PRN I have reviewed the current psychotropics carefully including drug interactions. Risk benefit ratio favors no change other than as noted in my dictated progress note. Diagnosis: Problems: (1) Anxiety disorder (2) Dementia in Alzheimer's disease with delusions (3) Dementia in Alzheimer's disease with depression (4) Dementia, vascular, with delusions (5) Dementia, vascular, with depression (6) Impulse control disorder BYRON ACEVES MD May 01, 2018 22:21
--- NOTE | 2018-05-01 22:55 | PN ---
DATE: 04/30/2018 PSYCHIATRIC PROGRESS NOTE This late entry 04/30/2018 covers elements not covered in my initial note. SUBJECTIVE: I met with the patient in the evening. The patient slept 7 hours previous night. He did well the previous night, but was agitated at one time and has been moved from a Broda chair to a wheelchair. Physical Therapy intervened to help his agitation and when he ambulates, he does better. Ambulation is impaired; complains of head and back pain, received p.r.n. Motrin. REVIEW OF SYSTEMS: No CV, , pulmonary, eye, ENT system symptoms on review. MENTAL STATUS EXAM: Oriented to himself. Insight, judgment, recent and remote memory, attention, concentration, fund of knowledge poor, consistent with his diagnosis mentioned in my initial note. PLAN: No change from initial note. MAN Roxana ACEVES MD DR: DANN/brittni JOB#: [id number] / [id number]
[2018-05-01 22:56] LABS: AMORPHOUS SEDIMENT,UR PRESENT /HPF; BACTERIA,URINE MANY /HPF (0-FEW); BILIRUBIN,URINE NEG (NEG); CLARITY,URINE CLOUDY; COLOR,URINE AMBER; GLUCOSE,URINE NEG (NEG); NITRITE,URINE NEG (NEG); RBC,URINE RARE /HPF (0-2); UROBILINOGEN,URINE 1 mg/dL (0.2 mg/dL); WBC,URINE 20-40 /HPF (0-4)
--- NOTE | 2018-05-01 23:04 | RAD ---
Chest radiograph 05/01/2018 9:43 PM INDICATION: Fever, cough and elevated white blood cell count COMPARISON: None available TECHNIQUE: Portable frontal semi-upright view of the chest is provided. FINDINGS: The cardiomediastinal silhouette is enlarged. Median sternotomy changes are present. Left chest wall cardiac device is identified with leads projecting over the right atrium and ventricle. There are no pleural effusions. There is mild pulmonary vascular congestion. There is no pneumothorax. The lungs are clear. No significant osseous abnormality is identified. IMPRESSION: Cardiomegaly with mild pulmonary vascular congestion as may be seen with congestive heart failure. Electronically signed by: Danae Santos MD (05/01/2018 11:01 PM) [id number]
[2018-05-01 23:38] VITALS: BP 107/57
[2018-05-02 03:37] VITALS: BP 115/68
[2018-05-02] MEDS: MAGNESIUM HYDROXIDE 2,400 MG/30 ML ORAL.SUSP. PO PRN (05:31)
[2018-05-02 06:09] VITALS: BP 126/77
[2018-05-02] MEDS: DULoxetine HCL 30 MG CAPSULE.DR PO SCH ×2 (09:02→19:15)
[2018-05-02] MEDS: ACETAMINOPHEN 325 MG TABLET PO SCH ×3 (09:02→19:15)
[2018-05-02] MEDS: QUEtiapine 25 MG TABLET. PO SCH ×4 (09:02→19:15)
[2018-05-02] MEDS: ASPIRIN 81 MG TAB.CHEW PO SCH (09:02)
[2018-05-02] MEDS: CARVEDILOL 12.5 MG TABLET PO SCH ×2 (09:03→17:39)
[2018-05-02 16:28] VITALS: BP 110/68
[2018-05-02] MEDS: TAMSULOSIN 0.4 MG CAP.ER.24H. PO SCH (19:15)
[2018-05-02] MEDS: MIRTAZAPINE 7.5 MG TABLET. PO SCH (19:16)
[2018-05-02] MEDS: DIVALPROEX ER 500 MG TAB.ER.24H PO SCH (19:16)
[2018-05-02] MEDS: SIMVASTATIN 20 MG TABLET PO SCH (19:16)
--- NOTE | 2018-05-02 22:15 | PDOC ---
Exam Note: Gavin Note: Please also refer to the separate dictated note~for this date of service dictated separately.~Patient seen individually. Discussed the patient with Nursing staff reviewed the chart.~Reviewed interim history and current functioning. Reviewed vital signs,~Labs/ Radiology~and current medications noted below. Continue current treatment with the changes noted in the dictated addendum note Assessment: Vital Signs: Vital Signs Date Time Temp Pulse Resp B/P (MAP) Pulse Ox O2 Delivery O2 Flow Rate FiO2 05/02/18 17:39 71 110/68 05/02/18 16:28 97.7 17 92 Room Air I&O Intake and Output 05/02/18 06:59 Intake Total 660 ml Balance 660 ml Intake Oral 660 ml # Voids 1 Labs: Laboratory Tests Test 05/01/18 22:39 Urine Collection Type Unknown Urine Color Jaja Urine Clarity Cloudy Urine pH 8.5 Urine Specific [place] 1.015 Urine Protein 30 mg/dl (NEG-TRACE) Urine Glucose (UA) Neg mg/dL (NEG) Urine Ketones (Stick) 40 mg/dL (NEG) Urine Blood Mod (NEG) Urine Nitrite Neg (NEG) Urine Bilirubin Neg (NEG) Urine Urobilinogen Dipstick 1 mg/dL (0.2 mg/dL) Urine Leukocyte Esterase Mod (NEG) Urine RBC Rare /HPF (0-2) Urine WBC 20-40 /HPF (0-4) Urine Squamous Epithelial Cells None /LPF Urine Amorphous Sediment Present /HPF Urine Bacteria Many /HPF (0-FEW) Urine Mucus Slight /LPF Current Medications: Meds: Current Medications Acetaminophen (Tylenol) 650 mg PRN Q4HRS PRN PO FEVER; Start 04/13/18 at 19:00 ; Stop 04/14/18 at 18:59; Status Cancel Acetaminophen (Tylenol) 650 mg PRN Q6HRS PRN PO PAIN / TEMP; Start 04/13/18 at 21:15 Multi-Ingredient Ointment (Analgesic [place]) 1 nicole PRN QID PRN TP MUSCLE PAIN; Start 04/13/18 at 21:15 Al Hydroxide/Mg Hydroxide (Mylanta Plus Xs) 15 ml PRN AFTMEALHC PRN PO DYSPEPSIA; Start 04/13/18 at 21:15 Magnesium Hydroxide (Milk Of Magnesia) 2,400 mg PRN QHS PRN PO CONSTIPATION Last administered on 05/02/18 05:31; Start 04/13/18 at 21:15 Olanzapine (ZyPREXA ZYDIS) 2.5 mg PRN Q2HR PRN PO PSYCHOSIS Last administered on 04/28/18 11:57; Start 04/13/18 at 22:15 Acetaminophen (Tylenol) 650 mg TID PO Last administered on 05/02/18 19:15; Start 04/14/18 at 09:00 Tamsulosin HCl (Flomax) 0.4 mg QHS PO Last administered on 05/02/18 19:15; Start 04/14/18 at 21:00 Bisacodyl (Dulcolax Supp) 10 mg PRN DAILY PRN [place] CONSTIPATION Last administered on 04/23/18 15:57; Start 04/13/18 at 22:30 Carvedilol (Coreg) 12.5 mg BIDWMEALS PO Last administered on 05/02/18 17:39; Start 04/14/18 at 08:00 Guaifenesin (Robitussin Dm) 10 ml PRN Q4HRS PRN PO COUGH; Start 04/13/18 at 22: 30 Divalproex Sodium (Depakote Er) 250 mg BID PO Last administered on 04/19/18 08 :30; Start 04/14/18 at 09:00; Stop 04/19/18 at 17:06; Status DC Duloxetine HCl (Cymbalta) 30 mg BID PO Last administered on 05/02/18 19:15; Start 04/14/18 at 09:00 Polyethylene Glycol (miraLAX) 17 gm PRN DAILY PRN PO CONSTIPATION; Start at 09:00 Quetiapine Fumarate (SEROquel) 12.5 mg DAILY PO Last administered on 05/02/18 09:02; Start 04/14/18 at 09:00 Quetiapine Fumarate (SEROquel) 12.5 mg Q24H PO Last administered on 04/23/18 13:16; Start 04/14/18 at 13:00; Stop 04/23/18 at 17:15; Status DC Quetiapine Fumarate (SEROquel) 25 mg QHS PO Last administered on 05/02/18 19:15 ; Start 04/13/18 at 22:30 Simvastatin (Zocor) 20 mg HS PO Last administered on 05/02/18 19:16; Start at 21:00 Mirtazapine (Remeron) 7.5 mg QHS PO Last administered on 04/21/18 20:14; Start 04/15/18 at 21:00; Stop 04/21/18 at 23:22; Status DC Aspirin (Children'S Aspirin) 162 mg DAILYWBKFT PO Last administered on 09:02; Start 04/18/18 at 08:00 Divalproex Sodium (Depakote Er) 750 mg HS PO Last administered on 04/22/18 19: 29; Start 04/20/18 at 21:00; Stop 04/23/18 at 17:15; Status DC Mirtazapine (Remeron) 15 mg QHS PO Last administered on 05/02/18 19:16; Start 04/22/18 at 21:00 Quetiapine Fumarate (SEROquel) 12.5 mg DAILYWSUP PO Last administered on 17:11; Start 04/23/18 at 17:00; Stop 04/27/18 at 20:15; Status DC Divalproex Sodium (Depakote Er) 1,000 mg HS PO Last administered on 05/02/18 19 :16; Start 04/23/18 at 21:00 Quetiapine Fumarate (SEROquel) 25 mg Q24H PO Last administered on 05/02/18 13: 01; Start 04/24/18 at 13:00 Hydroxyzine HCl (Atarax) 25 mg PRN Q2HR PRN PO ANXIETY / AGITATION Last administered on 05/01/18 16:20; Start 04/23/18 at 17:15 Quetiapine Fumarate (SEROquel) 37.5 mg DAILYWSUP PO Last administered on 17:40; Start 04/28/18 at 17:00 Ibuprofen (Motrin) 400 mg PRN Q8HRS PRN PO INFLAMMATION Last administered on 16:11; Start 04/30/18 at 15:30 Active Scripts Active Reported Tylenol (Acetaminophen) 325 Mg Tablet 650 Mg PO TID Tussin Cough (Dextromethorphan Hbr) 15 Mg/5 Ml Liquid 15 Mg PO PRN Q4HRS PRN Flomax (Tamsulosin Hcl) 0.4 Mg Cap.er.24h 0.4 Mg PO QHS Simvastatin 20 Mg Tablet 20 Mg PO HS Seroquel (Quetiapine Fumarate) 25 Mg Tablet 25 Mg PO QHS Seroquel (Quetiapine Fumarate) 25 Mg Tablet 12.5 Mg PO DAILY Seroquel (Quetiapine Fumarate) 25 Mg Tablet 12.5 Mg PO DAILY@1300 Miralax (Polyethylene Glycol 3350) 17 Gm Powd.pack 17 Gm PO PRN DAILY PRN Depakote Er (Divalproex Sodium) 250 Mg Tab.er.24h 250 Mg PO BID Cymbalta (Duloxetine Hcl) 30 Mg Capsule.dr 30 Mg PO BID Coreg (Carvedilol) 25 Mg Tablet 12.5 Mg PO DAILY Bisacodyl 10 Mg Supp.rect 10 Mg RC PRN DAILY PRN I have reviewed the current psychotropics carefully including drug interactions. Risk benefit ratio favors no change other than as noted in my dictated progress note. Diagnosis: Problems: (1) Anxiety disorder (2) Dementia in Alzheimer's disease with delusions (3) Dementia in Alzheimer's disease with depression (4) Dementia, vascular, with delusions (5) Dementia, vascular, with depression (6) Impulse control disorder BYRON ACEVES MD May 02, 2018 22:15
[2018-05-03] MEDS: BISACODYL 10 MG SUPP.RECT PR PRN (04:16)
[2018-05-03 06:48] VITALS: BP 146/90
[2018-05-03] MEDS: QUEtiapine 25 MG TABLET. PO SCH ×4 (08:15→19:43)
[2018-05-03] MEDS: DULoxetine HCL 30 MG CAPSULE.DR PO SCH ×2 (08:16→19:44)
[2018-05-03] MEDS: ASPIRIN 81 MG TAB.CHEW PO SCH (08:16)
[2018-05-03] MEDS: CARVEDILOL 12.5 MG TABLET PO SCH ×2 (08:16→17:39)
[2018-05-03] MEDS: ACETAMINOPHEN 325 MG TABLET PO SCH ×3 (08:16→19:43)
[2018-05-03 15:37] VITALS: BP 114/70
[2018-05-03] MEDS: MIRTAZAPINE 7.5 MG TABLET. PO SCH (19:42)
[2018-05-03] MEDS: SIMVASTATIN 20 MG TABLET PO SCH (19:43)
[2018-05-03] MEDS: TAMSULOSIN 0.4 MG CAP.ER.24H. PO SCH (19:44)
[2018-05-03] MEDS: DIVALPROEX ER 500 MG TAB.ER.24H PO SCH (19:44)
--- NOTE | 2018-05-03 22:35 | PDOC ---
Exam Note: Gavin Note: Please also refer to the separate dictated note~for this date of service dictated separately.~Patient seen individually. Discussed the patient with Nursing staff reviewed the chart.~Reviewed interim history and current functioning. Reviewed vital signs,~Labs/ Radiology~and current medications noted below. Continue current treatment with the changes noted in the dictated addendum note Assessment: Vital Signs: Vital Signs Date Time Temp Pulse Resp B/P (MAP) Pulse Ox O2 Delivery O2 Flow Rate FiO2 05/03/18 17:39 80 114/70 05/03/18 15:37 98.1 20 94 Room Air I&O Intake and Output 05/03/18 06:59 Intake Total 720 ml Balance 720 ml Intake Oral 720 ml # Bowel Movements 1 Current Medications: Meds: Current Medications Acetaminophen (Tylenol) 650 mg PRN Q4HRS PRN PO FEVER; Start 04/13/18 at 19:00 ; Stop 04/14/18 at 18:59; Status Cancel Acetaminophen (Tylenol) 650 mg PRN Q6HRS PRN PO PAIN / TEMP; Start 04/13/18 at 21:15 Multi-Ingredient Ointment (Analgesic [place]) 1 nicole PRN QID PRN TP MUSCLE PAIN; Start 04/13/18 at 21:15 Al Hydroxide/Mg Hydroxide (Mylanta Plus Xs) 15 ml PRN AFTMEALHC PRN PO DYSPEPSIA; Start 04/13/18 at 21:15 Magnesium Hydroxide (Milk Of Magnesia) 2,400 mg PRN QHS PRN PO CONSTIPATION Last administered on 05/02/18 05:31; Start 04/13/18 at 21:15 Olanzapine (ZyPREXA ZYDIS) 2.5 mg PRN Q2HR PRN PO PSYCHOSIS Last administered on 04/28/18 11:57; Start 04/13/18 at 22:15 Acetaminophen (Tylenol) 650 mg TID PO Last administered on 05/03/18 19:43; Start 04/14/18 at 09:00 Tamsulosin HCl (Flomax) 0.4 mg QHS PO Last administered on 05/03/18 19:44; Start 04/14/18 at 21:00 Bisacodyl (Dulcolax Supp) 10 mg PRN DAILY PRN [place] CONSTIPATION Last administered on 05/03/18at 04:16; Start 04/13/18 at 22:30 Carvedilol (Coreg) 12.5 mg BIDWMEALS PO Last administered on 05/03/18 17:39; Start 04/14/18 at 08:00 Guaifenesin (Robitussin Dm) 10 ml PRN Q4HRS PRN PO COUGH; Start 04/13/18 at 22: 30 Divalproex Sodium (Depakote Er) 250 mg BID PO Last administered on 04/19/18 08 :30; Start 04/14/18 at 09:00; Stop 04/19/18 at 17:06; Status DC Duloxetine HCl (Cymbalta) 30 mg BID PO Last administered on 05/03/18 19:44; Start 04/14/18 at 09:00 Polyethylene Glycol (miraLAX) 17 gm PRN DAILY PRN PO CONSTIPATION; Start at 09:00 Quetiapine Fumarate (SEROquel) 12.5 mg DAILY PO Last administered on 05/03/18 08:15; Start 04/14/18 at 09:00 Quetiapine Fumarate (SEROquel) 12.5 mg Q24H PO Last administered on 04/23/18 13:16; Start 04/14/18 at 13:00; Stop 04/23/18 at 17:15; Status DC Quetiapine Fumarate (SEROquel) 25 mg QHS PO Last administered on 05/03/18 19:43 ; Start 04/13/18 at 22:30 Simvastatin (Zocor) 20 mg HS PO Last administered on 05/03/18 19:43; Start at 21:00 Mirtazapine (Remeron) 7.5 mg QHS PO Last administered on 04/21/18 20:14; Start 04/15/18 at 21:00; Stop 04/21/18 at 23:22; Status DC Aspirin (Children'S Aspirin) 162 mg DAILYWBKFT PO Last administered on 08:16; Start 04/18/18 at 08:00 Divalproex Sodium (Depakote Er) 750 mg HS PO Last administered on 04/22/18 19: 29; Start 04/20/18 at 21:00; Stop 04/23/18 at 17:15; Status DC Mirtazapine (Remeron) 15 mg QHS PO Last administered on 05/03/18 19:42; Start 04/22/18 at 21:00 Quetiapine Fumarate (SEROquel) 12.5 mg DAILYWSUP PO Last administered on 17:11; Start 04/23/18 at 17:00; Stop 04/27/18 at 20:15; Status DC Divalproex Sodium (Depakote Er) 1,000 mg HS PO Last administered on 05/03/18 19 :44; Start 04/23/18 at 21:00 Quetiapine Fumarate (SEROquel) 25 mg Q24H PO Last administered on 05/03/18 12: 25; Start 04/24/18 at 13:00 Hydroxyzine HCl (Atarax) 25 mg PRN Q2HR PRN PO ANXIETY / AGITATION Last administered on 05/01/18 16:20; Start 04/23/18 at 17:15 Quetiapine Fumarate (SEROquel) 37.5 mg DAILYWSUP PO Last administered on 17:40; Start 04/28/18 at 17:00 Ibuprofen (Motrin) 400 mg PRN Q8HRS PRN PO INFLAMMATION Last administered on 16:11; Start 04/30/18 at 15:30 Active Scripts Active Reported Tylenol (Acetaminophen) 325 Mg Tablet 650 Mg PO TID Tussin Cough (Dextromethorphan Hbr) 15 Mg/5 Ml Liquid 15 Mg PO PRN Q4HRS PRN Flomax (Tamsulosin Hcl) 0.4 Mg Cap.er.24h 0.4 Mg PO QHS Simvastatin 20 Mg Tablet 20 Mg PO HS Seroquel (Quetiapine Fumarate) 25 Mg Tablet 25 Mg PO QHS Seroquel (Quetiapine Fumarate) 25 Mg Tablet 12.5 Mg PO DAILY Seroquel (Quetiapine Fumarate) 25 Mg Tablet 12.5 Mg PO DAILY@1300 Miralax (Polyethylene Glycol 3350) 17 Gm Powd.pack 17 Gm PO PRN DAILY PRN Depakote Er (Divalproex Sodium) 250 Mg Tab.er.24h 250 Mg PO BID Cymbalta (Duloxetine Hcl) 30 Mg Capsule.dr 30 Mg PO BID Coreg (Carvedilol) 25 Mg Tablet 12.5 Mg PO DAILY Bisacodyl 10 Mg Supp.rect 10 Mg RC PRN DAILY PRN I have reviewed the current psychotropics carefully including drug interactions. Risk benefit ratio favors no change other than as noted in my dictated progress note. Diagnosis: Problems: (1) Anxiety disorder (2) Dementia in Alzheimer's disease with delusions (3) Dementia in Alzheimer's disease with depression (4) Dementia, vascular, with delusions (5) Dementia, vascular, with depression (6) Impulse control disorder BYRON ACEVES MD May 03, 2018 22:35
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
--- NOTE | 2018-05-04 04:13 | PN ---
DATE: 05/02/2018 PSYCHIATRIC PROGRESS NOTE This late entry 05/02/2018 covers elements not covered in my initial note. SUBJECTIVE: I met with the patient in the evening and staffed at a treatment team meeting with the entire team earlier in the day. The patient has been quite labile, cursing at staff, remains in a Broda chair, compliant with medications, crushed in pudding. He chooses medications, which is a challenge, slept 4-1/4 hours. Appetite 90%. Previous night, he had some fever. WBC 11.7. Blood culture was done. UA has reflex to culture. We will defer to Dr. Schmitt. REVIEW OF SYSTEMS: Ambulation impaired, in Broda chair. No CV, , pulmonary, eye, ENT system symptoms on review. Reliability poor. MENTAL STATUS EXAM: Oriented to himself. Insight, judgment, recent and remote memory, attention, concentration, fund of knowledge poor, consistent with his diagnosis mentioned in my initial note. PLAN: No change from initial note other than noted above. MAN Roxana ACEVES MD DR: DANN/britnti JOB#: [id number] / [id number]
[2018-05-04 05:16] VITALS: BP 114/70
[2018-05-04] MEDS: CARVEDILOL 12.5 MG TABLET PO SCH ×2 (08:47→16:15)
[2018-05-04] MEDS: ASPIRIN 81 MG TAB.CHEW PO SCH (08:47)
[2018-05-04] MEDS: ACETAMINOPHEN 325 MG TABLET PO SCH ×3 (08:47→19:23)
[2018-05-04] MEDS: DULoxetine HCL 30 MG CAPSULE.DR PO SCH ×2 (08:47→19:22)
[2018-05-04] MEDS: QUEtiapine 25 MG TABLET. PO SCH ×4 (08:47→19:22)
[2018-05-04 15:36] VITALS: BP 99/64
[2018-05-04] MEDS: TAMSULOSIN 0.4 MG CAP.ER.24H. PO SCH (19:22)
[2018-05-04] MEDS: DIVALPROEX ER 500 MG TAB.ER.24H PO SCH (19:23)
[2018-05-04] MEDS: SIMVASTATIN 20 MG TABLET PO SCH (19:23)
[2018-05-04] MEDS: MIRTAZAPINE 7.5 MG TABLET. PO SCH (19:24)
--- NOTE | 2018-05-05 00:06 | PN ---
DATE: 05/04/2018 SUBJECTIVE: The patient was seen today, met with the staff, chart reviewed. The patient's behavior improved slightly, still withdrawn, confused, labile, indifferent to surroundings, difficult to redirect. OBSERVATION: VITAL SIGNS: Temperature 98.1, blood pressure 114/70, pulse 80, respirations 20. Slept about 8 hours last night. His appetite is fair. The patient is not having any side effects to the medications. MEDICATIONS: His current medications include Seroquel 37.5 mg daily and 25 mg daily, Depakote 1000 mg at night, mirtazapine 15 mg at night, Seroquel 12.5 mg daily, Cymbalta 30 mg b.i.d., Seroquel 25 mg at night. The patient is not having any major side effects to the medications. ASSESSMENT: Major neurocognitive disorder, most likely Alzheimer's, vascular with delusions. PLAN: To continue with the current treatment plan. JUNAID PUENTE MD DR: KHADRA/brittni JOB#: [id number] / [id number]
[2018-05-05 06:21] VITALS: BP 130/91
[2018-05-05] MEDS: ASPIRIN 81 MG TAB.CHEW PO SCH (08:42)
[2018-05-05] MEDS: ACETAMINOPHEN 325 MG TABLET PO SCH ×3 (08:42→19:41)
[2018-05-05] MEDS: CARVEDILOL 12.5 MG TABLET PO SCH ×2 (08:42→16:59)
[2018-05-05] MEDS: QUEtiapine 25 MG TABLET. PO SCH ×4 (08:42→19:40)
[2018-05-05] MEDS: DULoxetine HCL 30 MG CAPSULE.DR PO SCH ×2 (08:42→19:40)
[2018-05-05 16:30] VITALS: BP 113/79
[2018-05-05] MEDS: SIMVASTATIN 20 MG TABLET PO SCH (19:39)
[2018-05-05] MEDS: TAMSULOSIN 0.4 MG CAP.ER.24H. PO SCH (19:40)
[2018-05-05] MEDS: MIRTAZAPINE 7.5 MG TABLET. PO SCH (19:41)
[2018-05-05] MEDS: DIVALPROEX ER 500 MG TAB.ER.24H PO SCH (19:41)
[2018-05-06] MEDS ORDERED: AMOX1TAB10 PO (01:21)
--- NOTE | 2018-05-06 02:33 | PN ---
DATE: 05/03/2018 PSYCHIATRIC PROGRESS NOTE This late entry 05/03/2018 covers elements not covered in my initial note. SUBJECTIVE: I met with the patient in the evening. during the day. REVIEW OF SYSTEMS: Ambulation impaired, in wheelchair. No CV, , pulmonary, eye, ENT system symptoms on review. Reliability poor. MENTAL STATUS EXAM: Oriented to himself. Insight, judgment, recent and remote memory, attention, concentration, fund of knowledge poor, consistent with his diagnosis mentioned in my initial note. PLAN: No change from initial note. We will await the urine culture results and treat as indicated. This is probably worsening his agitation. BYRON ACEVES MD DR: DANN/brittni JOB#: [id number] / [id number]
--- NOTE | 2018-05-06 05:07 | PN ---
DATE: 05/05/2018 SUBJECTIVE: The patient was seen today, met with the staff, chart reviewed. The patient continues to show improvement, still withdrawn, confused at times, indifferent with surroundings. The patient lacks motivation. OBSERVATIONS: VITAL SIGNS: Stable. GENERAL: He is sleeping better. Appetite improved. PSYCHIATRIC: The patient is not having any physical complaints. No major side effects. CURRENT MEDICATIONS: Include Seroquel 37.5 mg daily and 25 mg daily, Depakote 1000 mg at night, mirtazapine 15 mg at night, Seroquel 12.5 mg daily, Cymbalta 30 mg b.i.d., and Seroquel 25 mg at night. ALLERGIES: The patient is not having any side effects to medications. ASSESSMENT: Major neurocognitive disorder, most likely Alzheimer's, vascular with delusions. PLAN: To continue with the treatment. JUNAID PUENTE MD DR: KHADRA/brittni JOB#: [id number] / [id number]
[2018-05-06 06:10] VITALS: BP 139/95
[2018-05-06] MEDS: CARVEDILOL 12.5 MG TABLET PO SCH ×2 (08:00→17:26)
[2018-05-06] MEDS: ASPIRIN 81 MG TAB.CHEW PO SCH (08:00)
[2018-05-06] MEDS: QUEtiapine 25 MG TABLET. PO SCH ×4 (08:20→19:28)
[2018-05-06] MEDS: DULoxetine HCL 30 MG CAPSULE.DR PO SCH ×2 (08:25→19:32)
[2018-05-06] MEDS: ACETAMINOPHEN 325 MG TABLET PO SCH ×3 (08:25→19:28)
[2018-05-06] MEDS: AMOXICILLIN/K CLAV 500/125MG TABLET. PO SCH ×2 (11:03→19:28)
[2018-05-06 16:29] VITALS: BP 133/76
[2018-05-06] MEDS: MIRTAZAPINE 7.5 MG TABLET. PO SCH (19:27)
[2018-05-06] MEDS: TAMSULOSIN 0.4 MG CAP.ER.24H. PO SCH (19:28)
[2018-05-06] MEDS: DIVALPROEX ER 500 MG TAB.ER.24H PO SCH (19:29)
[2018-05-06] MEDS: SIMVASTATIN 20 MG TABLET PO SCH (19:29)
[2018-05-06] MEDS: LACTOBACILLUS RHAMNOSUS GG 1 CAPSULE. PO SCH (19:32)
[2018-05-07 06:37] VITALS: BP 142/86
--- NOTE | 2018-05-07 06:55 | PN ---
DATE: 05/06/2018 SUBJECTIVE: The patient was seen today, met with the staff, chart reviewed. The patient's behavior has improved. No major problems. He has been compliant with the treatment. OBSERVATION: VITAL SIGNS: Temperature 97.6, blood pressure 139/95, pulse 83, respirations 18, O2 sat 96%. Slept about 7-1/2 hours last night. CURRENT MEDICATIONS: The patient's medications reviewed and he is on Seroquel 37.5 mg daily and 25 mg daily, Depakote 1000 mg at night, mirtazapine 15 mg at night, Seroquel 12.5 mg daily, Cymbalta 30 mg b.i.d., and Seroquel 25 mg at night. The patient is not presenting with any major medical issues. ASSESSMENT: Major neurocognitive disorder, most likely Alzheimer's, vascular with delusions. PLAN: To continue with treatment. The patient is planned for discharge this week. He will be returning to [facility]. JUNAID PUENTE MD DR: KHADRA/brittni JOB#: [id number] / [id number]
[2018-05-07] MEDS: LACTOBACILLUS RHAMNOSUS GG 1 CAPSULE. PO SCH ×2 (08:15→19:45)
[2018-05-07] MEDS: QUEtiapine 25 MG TABLET. PO SCH ×4 (08:15→19:45)
[2018-05-07] MEDS: AMOXICILLIN/K CLAV 500/125MG TABLET. PO SCH ×2 (08:15→19:45)
[2018-05-07] MEDS: DULoxetine HCL 30 MG CAPSULE.DR PO SCH ×2 (08:15→19:46)
[2018-05-07] MEDS: ASPIRIN 81 MG TAB.CHEW PO SCH (08:16)
[2018-05-07] MEDS: CARVEDILOL 12.5 MG TABLET PO SCH ×2 (08:16→17:00)
[2018-05-07] MEDS: ACETAMINOPHEN 325 MG TABLET PO SCH ×3 (08:16→19:46)
[2018-05-07] MEDS: hydrOXYzine HCL 25 MG TABLET PO PRN (15:52)
[2018-05-07 16:27] VITALS: BP 129/77
[2018-05-07] MEDS: SIMVASTATIN 20 MG TABLET PO SCH (19:45)
[2018-05-07] MEDS: TAMSULOSIN 0.4 MG CAP.ER.24H. PO SCH (19:45)
[2018-05-07] MEDS: MIRTAZAPINE 7.5 MG TABLET. PO SCH (19:45)
[2018-05-07] MEDS: DIVALPROEX ER 500 MG TAB.ER.24H PO SCH (19:46)
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
[2018-05-08 06:27] VITALS: BP 105/78
[2018-05-08] MEDS: AMOXICILLIN/K CLAV 500/125MG TABLET. PO SCH ×2 (08:39→19:47)
[2018-05-08] MEDS: ACETAMINOPHEN 325 MG TABLET PO SCH ×3 (08:39→19:48)
[2018-05-08] MEDS: DULoxetine HCL 30 MG CAPSULE.DR PO SCH ×2 (08:39→19:47)
[2018-05-08] MEDS: LACTOBACILLUS RHAMNOSUS GG 1 CAPSULE. PO SCH ×2 (08:39→19:47)
[2018-05-08] MEDS: CARVEDILOL 12.5 MG TABLET PO SCH ×2 (08:40→16:47)
[2018-05-08] MEDS: ASPIRIN 81 MG TAB.CHEW PO SCH (08:40)
[2018-05-08] MEDS: QUEtiapine 25 MG TABLET. PO SCH ×4 (08:40→19:47)
[2018-05-08 17:30] VITALS: BP 138/93
[2018-05-08] MEDS: DIVALPROEX 125 MG CAP.SPRINK PO SCH (19:47)
[2018-05-08] MEDS: SIMVASTATIN 20 MG TABLET PO SCH (19:47)
[2018-05-08] MEDS: TAMSULOSIN 0.4 MG CAP.ER.24H. PO SCH (19:47)
[2018-05-08] MEDS: MIRTAZAPINE 7.5 MG TABLET. PO SCH (19:48)
[2018-05-09] MEDS: AMOXICILLIN/K CLAV 500/125MG TABLET. PO SCH ×2 (08:06→19:28)
[2018-05-09] MEDS: CARVEDILOL 12.5 MG TABLET PO SCH ×2 (08:06→17:29)
[2018-05-09] MEDS: ASPIRIN 81 MG TAB.CHEW PO SCH (08:06)
[2018-05-09] MEDS: LACTOBACILLUS RHAMNOSUS GG 1 CAPSULE. PO SCH ×2 (08:06→19:28)
[2018-05-09] MEDS: ACETAMINOPHEN 325 MG TABLET PO SCH ×3 (08:07→19:27)
[2018-05-09] MEDS: DULoxetine HCL 30 MG CAPSULE.DR PO SCH ×2 (08:07→19:29)
[2018-05-09] MEDS: QUEtiapine 25 MG TABLET. PO SCH ×4 (08:07→19:29)
[2018-05-09 10:41] VITALS: BP 102/67
[2018-05-09 16:33] VITALS: BP 118/81
[2018-05-09] MEDS: MIRTAZAPINE 7.5 MG TABLET. PO SCH (19:26)
[2018-05-09] MEDS: DIVALPROEX 125 MG CAP.SPRINK PO SCH (19:28)
[2018-05-09] MEDS: TAMSULOSIN 0.4 MG CAP.ER.24H. PO SCH (19:29)
[2018-05-09] MEDS: SIMVASTATIN 20 MG TABLET PO SCH (19:29)
--- NOTE | 2018-05-10 00:18 | PN ---
DATE: 04/13/2018 SUBJECTIVE: The patient was seen today, met with the staff, chart reviewed. The patient apparently has calmed down and has not presented with any major behavioral problems. OBSERVATION: VITAL SIGNS: Temperature 97.2, blood pressure 118/81, pulse 73, respirations 16, O2 sat 94%. The patient's appetite fair, sleep improved. MEDICATIONS: The patient's current medications include Seroquel, Depakote, mirtazapine and Cymbalta, not having any side effects and no falls. ASSESSMENT: Major neurocognitive disorder, most likely vascular with delusions. PLAN: To continue with the treatment. JUNAID PUENTE MD DR: KHADRA/brittni JOB#: [id number] / [id number]
[2018-05-10] MEDS ORDERED: ACET325T9 PO (01:19)
[2018-05-10] MEDS ORDERED: ASPI-630 PO (01:28)
[2018-05-10] MEDS ORDERED: DIVA125C2 PO (01:32)
[2018-05-10] MEDS ORDERED: IBUP400T18 PO (01:33)
[2018-05-10] MEDS ORDERED: LACT1CAP19 PO (01:35)
[2018-05-10] MEDS ORDERED: MAG30ORA2 PO (01:36)
[2018-05-10] MEDS ORDERED: MAGN2400 PO (01:37)
[2018-05-10] MEDS ORDERED: METH29OI TP (01:38)
[2018-05-10] MEDS ORDERED: MIRT15TA PO (01:39)
[2018-05-10] MEDS ORDERED: OLAN2.5T3 PO (01:40)
[2018-05-10] MEDS ORDERED: QUET25TA5 PO (01:43)
[2018-05-10] MEDS ORDERED: GUAI5SYR PO (01:48)
[2018-05-10] MEDS ORDERED: HYDR25TA PO (01:49)
[2018-05-10] MEDS ORDERED: CARV12.53 PO (01:49)
[2018-05-10 06:07] VITALS: BP 106/71
[2018-05-10] MEDS: ASPIRIN 81 MG TAB.CHEW PO SCH (08:06)
[2018-05-10] MEDS: DULoxetine HCL 30 MG CAPSULE.DR PO SCH (08:06)
[2018-05-10] MEDS: ACETAMINOPHEN 325 MG TABLET PO SCH (08:06)
[2018-05-10] MEDS: AMOXICILLIN/K CLAV 500/125MG TABLET. PO SCH (08:06)
[2018-05-10] MEDS: LACTOBACILLUS RHAMNOSUS GG 1 CAPSULE. PO SCH (08:06)
[2018-05-10 08:07] VITALS: BP 106/71
[2018-05-10] MEDS: QUEtiapine 25 MG TABLET. PO SCH (08:07)
[2018-05-10] MEDS: CARVEDILOL 12.5 MG TABLET PO SCH (08:07)
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
== END 2018-05-10 12:30 | disposition home or self-care (01) | DRG 57 ==
LOC: ER 17:10 → GEROPSY 20:52
PROVIDERS: ADMIT Psychiatry & Neurology Psychiatry; ATTEND Psychiatry & Neurology Psychiatry
DX: G30.9 Alzheimer's disease, unspecified (principal); F01.51 Vascular dementia, unspecified severity, with behavioral disturbance; F41.9 Anxiety disorder, unspecified; F63.9 Impulse disorder, unspecified; G62.9 Polyneuropathy, unspecified; G47.00 Insomnia, unspecified; K21.9 Gastro-esophageal reflux disease without esophagitis; M15.9 Polyosteoarthritis, unspecified; N40.0 Benign prostatic hyperplasia without lower urinary tract symptoms; E78.5 Hyperlipidemia, unspecified; F32.9 Major depressive disorder, single episode, unspecified; I11.9 Hypertensive heart disease without heart failure; Z88.8 Allergy status to other drugs, medicaments and biological substances; Z95.0 Presence of cardiac pacemaker; Z79.82 Long term (current) use of aspirin; Z79.899 Other long term (current) drug therapy
CPT/HCPCS: 36415; 70450; 71045; 80053; 80164; 81001; 83735; 84436; 84443; 84480; 85025; 87040; 87086; 87186; 93005; 97110; 97116; 97530; 99285-25